=== PATIENT | male | born 1950 | race African-American/Black ===

== ENCOUNTER 2018-03-08 09:55 | Outpatient (CLI) | payer MEDICARE ==
[~2018-03-08] VITALS: Ht 165.1 cm; Wt 86.6 kg
[~2018-03-08 09:55] MED LIST: ASPI-630 PO; CARV3.122 PO; EZET10TA18 PO; FOLI1TAB16 PO; ISOS1TAB2 PO; LEVE500T6 PO
[2018-03-08] MEDS ORDERED: ONDA8TAB9 PO (10:21)
[2018-03-08 10:31] VITALS: BP 140/74
[2018-03-08] MEDS ORDERED: LIDOCAINE 1%/EPI 1:100,000 20 ML VIAL. ONE (10:58)
[2018-03-08] MEDS ORDERED: MIDAZOLAM HCL/PF 2 MG/2 ML VIAL. ONE (11:05)
[2018-03-08] MEDS ORDERED: fentaNYL PF VIAL 100 MCG/2 ML VIAL ONE (11:05)
[2018-03-08] MEDS ORDERED: MIDAZOLAM HCL/PF 2 MG/2 ML VIAL. IV ONE (11:15)
[2018-03-08] MEDS ORDERED: LIDOCAINE 1%/EPI 1:100,000 20 ML VIAL. IJ ONE (11:15)
[2018-03-08] MEDS ORDERED: fentaNYL PF VIAL 100 MCG/2 ML VIAL IV ONE (11:15)
[2018-03-08 11:46] VITALS: BP 110/68
--- NOTE | 2018-03-08 12:26 | RAD ---
Procedure: Ultrasound and fluoroscopically guided placement of right internal jugular power port.. 03/08/2018 12:22 PM Clinical Indication: Chemotherapy Access Sedation: Conscious sedation was administered for 30 minutes. The patient was monitored by a qualified independent observer throughout the time of sedation. Please refer to the medical record for exact doses of medications utilized to achieve moderate sedation. Fluoroscopy time: 0.6 minutes Dose area product: 2 Gycm2 Consent: The procedure was explained in its entirety to the patient or the patients designated sales representative church furniture by a member of the treatment team, including a discussion of the risks, benefits and commonly accepted alternatives to the procedure, as well as the expected consequences of no therapy whatsoever. Discussion of the risks included, but was not limited to, those that are most frequent and those that are rare but possibly severe or life-threatening, as well as the possibility of unforeseen complications. Technique and Findings: All elements of maximal sterile barrier technique including the use of a cap, mask, sterile gown, sterile gloves, large sterile sheet, appropriate hand hygiene, and 2% chlorhexidine for cutaneous antisepsis (or acceptable alternative antiseptic per current guidelines) were followed for this procedure. Following informed consent, and a timeout procedure, the patient was prepped and draped in the usual sterile fashion. Ultrasound interrogation of the right neck revealed patency and compressibility of the right internal jugular vein. A 21-gauge micropuncture was then used to gain access to this vein under ultrasound guidance. A hard copy ultrasound image was recorded. The needle was exchanged over a wire for a sheath. A 1 inch incision was made several centimeters inferior to the venotomy site. A catheter was tunneled from this site dermatotomy site in the neck. Catheter was advanced through peel-away sheath such that its tip was in the proximal right atrium with the patient supine. The catheter was trimmed to length and connected to the port reservoir. The port was found to flush and aspirate normally. The wound was closed in layers using 4-0 Vicryl suture. Sterile dressings were applied. Impression: Successful ultrasound and fluoroscopically guided placement of a right internal jugular PowerPort
[2018-03-08 13:00] VITALS: BP 124/82
== END 2018-03-08 13:13 | disposition home or self-care (01) ==
LOC: INTRAD 09:55
PROVIDERS: ATTEND Internal Medicine Hematology & Oncology
DX: Z45.2 Encounter for adjustment and management of vascular access device (principal); C18.7 Malignant neoplasm of sigmoid colon; I10 Essential (primary) hypertension; Z87.891 Personal history of nicotine dependence; Z79.82 Long term (current) use of aspirin; Z79.899 Other long term (current) drug therapy
CPT/HCPCS: 36561; 76937; 77001; 99152; 99153; C1788; C1892; J0690; J2250; J3010; J3490; C1751

== ENCOUNTER 2018-04-28 01:32 | Inpatient (IN) | payer MEDICARE ==
[~2018-04-28] VITALS: Ht 167.6 cm; Wt 91.2 kg
[2018-04-28] VITALS (35 sets, daily range): BP systolic 63–147; BP diastolic 49–90
[~2018-04-28 01:32] MED LIST changes: +CARV3.1210 PO; -CARV3.122 PO; +ONDA8TAB9 PO
--- NOTE | 2018-04-28 02:11 | RAD ---
AP chest. HISTORY: Short of breath, chest pain AP view was taken of the chest. There is a right Port-A-Cath which stops at the brachiocephalic vein. Heart is normal in size. There are diffuse hazy infiltrates from pneumonia or pulmonary edema or drug reaction or hypersensitivity reaction. The pattern is new compared to the CT from February 24. IMPRESSION: 1. Diffuse hazy bilateral infiltrates. Electronically signed by: Ritesh Corado MD (04/28/2018 2:06 AM) [facility]
[2018-04-28 02:25] LABS: BASO # 0.1 x10^3/uL (0.0-0.2); BASO % 1 % (0-3); EOS # 0.2 x10^3/uL (0.0-0.7); EOS % 2 % (0-3); HEMATOCRIT 41.7 % (39.0-53.0); HEMOGLOBIN 14.7 g/dL (13.0-17.5); LYMPH # 4.5 x10^3/uL (1.0-4.8); LYMPH % 49 % (24-48); MEAN CORPUSCULAR HEMOGLOBIN 32 pg (25-35); MEAN CORPUSCULAR HGB CONC 35 g/dL (31-37); MEAN CORPUSCULAR VOLUME 90 fL (79-100); MONO # 1.8 x10^3/uL (0.0-1.1); MONO % 20 % (0-9); NEUT # 2.6 x10^3uL (1.8-7.7); NEUT % 29 % (31-73); PLATELET COUNT 193 x10^3/uL (140-400); RED BLOOD COUNT 4.64 x10^6/uL (4.30-5.70); RED CELL DISTRIBUTION WIDTH 14.8 % (11.5-14.5); WHITE BLOOD COUNT 9.2 x10^3/uL (4.0-11.0)
[2018-04-28] MEDS ORDERED: IPRATRPIUM/ALBUTEROL 0.5/2.5MG 3 ML NEBU. NEB ONE ×2 (02:30→06:00)
[2018-04-28 02:39] LABS: CALCIUM 8.3 mg/dL (8.5-10.1); CREATININE 1.7 mg/dL (0.7-1.3); GFR 48.9; POTASSIUM 4.2 mmol/L (3.5-5.1)
[2018-04-28 02:53] LABS: ALBUMIN 3.7 g/dL (3.4-5.0); ALBUMIN/GLOBULIN RATIO 0.9 (1.0-1.7); TOTAL BILIRUBIN 0.6 mg/dL (0.2-1.0); TOTAL PROTEIN 7.6 g/dL (6.4-8.2)
[2018-04-28 03:09] LABS: BASE EXCESS COOX -6 mmol/L (-3-3); HCO3 COOX 25 mmol/L (21-28); METHEMOGLOBIN 0.5 % (0.0-1.9); OXYHEMOGLOBIN 91.6 %; PO2 COOX 82 mmHg (65-108); SAT O2 COOX 92 % (92-99)
[2018-04-28 03:14] LABS: INFLUENZA A PATIENT NEGATIVE (NEGATIVE); INFLUENZA B PATIENT NEGATIVE (NEGATIVE)
[2018-04-28] MEDS ORDERED: PIP/TAZO PER PHARMACY MC PRN (03:15)
[2018-04-28] MEDS: PIPERACILLIN/TAZOBACTAM 3.375 GM in IV NORMAL SALINE 50ML 50 ML IV SCH ×3 (03:27→18:30)
[2018-04-28] MEDS ORDERED: FUROSEMIDE 40 MG/4 ML VIAL. IVP ONE (03:30)
[2018-04-28 03:31] LABS: PCO2 COOX 74 mmHg (35-46)
[2018-04-28 04:18] LABS: BASE EXCESS ABG -7 mmol/L (-3-3); HCO3 ABG 24 mmol/L (21-28); PO2 ABG 97 mmHg (65-108); SAT O2 ABG 95 % (92-99)
[2018-04-28 04:21] LABS: PCO2 ABG 73 mmHg (35-46)
[2018-04-28 04:22] LABS: FIO2 ABG 60
[2018-04-28] MEDS ORDERED: PROPOFOL 50 ML IV ONE ×2 (04:24→05:15)
--- NOTE | 2018-04-28 04:28 | PHYS DOC ---
Past Medical History Past Medical History: CAD Additional Past Medical Histor: LIVER CA, COLON CA. Past Surgical History: No Surgical History Additional Past Surgical Histo: PORT PLACEMENT WITHIN 3 MONTHS. Alcohol Use: None Drug Use: Cocaine, Marijuana Social History Narrative: PT DENIES DRUG USE AT THIS TIME. Adult General Chief Complaint Chief Complaint: SHORTNESS OF BREATH HPI HPI Patient is a 68 year old male with history of colon cancer with metastatic disease to the liver currently on chemotherapy with last chemotherapy infusion 2 weeks ago who presents with acute onset shortness of breath nausea and sweats. Symptom onset was approximately 3 hours prior to ED arrival. Patient tachypnea, hypoxic with respiratory failure on EMS arrival. O2 saturations were initially noted to be in the mid 70s. Patient put on oxygen transferred to the ED. On arrival, patient tachypnea, mild to moderate respiratory distress with coarse breath sounds bilaterally. He is alert and oriented and is able to speak. Denies chest pain, fevers chills, vomiting. Denies increased leg pain or swelling. No history of DVT or PE. Takes daily aspirin but is not otherwise on anticoagulation therapy. No other acute symptoms or complaints.[] Review of Systems Review of Systems Review symptoms as per history of present illness. All other review symptoms are negative. All other systems were reviewed and found to be within normal limits, except as documented in this note. Allergies Allergies Allergies Coded Allergies Type Severity Reaction Last Updated Verified No Known Drug Allergies 03/08/18 No Physical Exam Physical Exam Constitutional: Diaphoretic, acute respiratory distress with respiratory failure. [] HENT: Normocephalic, atraumatic, bilateral external ears normal, oropharynx moist, nose normal. [] Eyes: PERRLA, EOMI, conjunctiva normal. [] Neck: Normal range of motion, no tenderness, supple, JVD. [] Cardiovascular:Heart rate regular rhythm, no murmur. [] Lungs & Thorax: Tachypnea, coarse diminished breath sounds with rales bilaterally.[] Abdomen: Bowel sounds normal, soft, no tenderness. [] Skin: Warm, dry, no erythema. [] Back: No tenderness. [] Extremities: bipedal edema. [] Neurologic: Somnolent, normal motor function, normal sensory function, no focal deficits noted. [] Current Patient Data Vital Signs Vital Signs Date Time Temp Pulse Resp B/P (MAP) Pulse Ox O2 Delivery O2 Flow Rate FiO2 04/28/18 01:33 97.6 116 32 217/123 (154) 74 Room Air 97.6 EKG EKG EKG: reviewed[] Radiology/Procedures Radiology/Procedures [CXR: Bilateral infiltrates.] Intubation procedure note: Indication: acute respiratory distress with respiratory failure with failed BiPAP trial Anesthesia used: Succinylcholine 100 mg, to prevent 100 mg Consent: Verbal consent was obtained prior to procedure Operating physician: Dr. Francisco Robin Respiratory therapist was by bedside with ventilator, bipap ongoing. The patient was connected to cardiovascular and pulse oximetry monitors and maintained on BiPAP just immediately prior to intubation. After appropriate level sedation was achieved, the patient had a 7.5 mm endotracheal tube cautiously advanced through his vocal cord which was visualized via video just go. This was successful on first attempt. Post chest CT chest pending for evaluation of endotracheal tube placement. Patient tolerated the procedure without complication. Course & Med Decision Making Course & Med Decision Making Pertinent Labs and Imaging studies reviewed. (See chart for details) [Respiratory distress with respiratory failure with pulmonary infiltrates on exam and evidence of acute congestive heart failure. Patient is high risk for PE given cancer. Given elevated creatinine, the patient will be empirically started on heparin. Patient oxygenation proved with BiPAP however, patient respirations remain shallow and his ABG is essentially unchanged despite increasing respiratory rate. Will intubate patient for stabilization. IV Lasix, antibiotics given. Hospitalist service to admit with cardiology and pulmonology consult.] Dragon Disclaimer Dragon Disclaimer This electronic medical record was generated, in whole or in part, using a voice recognition dictation system. Departure Departure Impression: Primary Impression: Acute respiratory failure with hypoxia and hypercapnia Additional Impressions: Acute congestive heart failure Elevated troponin Disposition: ADMITTED INPATIENT Admitting Physician: Other (Dr. Chanel) Condition: CRITICAL Referrals: NO PCP (PCP) Problem Qualifiers FRANCISCO ROBIN DO Apr 28, 2018 04:28
[2018-04-28] MEDS ORDERED: HEPARIN for IV BOLUS 10,000 UNIT/10 ML VIAL. IV PRN ×2 (04:30)
[2018-04-28] MEDS ORDERED: HEPARIN 25,000UTS/500ML PREMIX 500 ML IV PRN (04:30)
[2018-04-28] MEDS ORDERED: ANTI-COAG MONITOR BY PHARMACY. MC PRN (04:45)
[2018-04-28] MEDS ORDERED: HEPARIN for IV BOLUS 10,000 UNIT/10 ML VIAL. IV ONE (05:00)
[2018-04-28] MEDS ORDERED: SUCCINYLCHOLINE 200 MG/10 ML VIAL. ONE (05:11)
[2018-04-28] MEDS ORDERED: MIDAZOLAM HCL/PF 5 MG/5 ML VIAL. IV ONE ×2 (05:15→06:30)
[2018-04-28] MEDS ORDERED: PROPOFOL 10 MG/ML (20ML) VIAL. IV ONE (06:00)
[2018-04-28] MEDS ORDERED: SUCCINYLCHOLINE 200 MG/10 ML VIAL. IV ONE (06:00)
--- NOTE | 2018-04-28 06:09 | EKG ---
[facility] [address] [place] [address] Test Date: 2018-04-28 Test Time: 01:40:05 Pat Name: SANTIAGO CROUCH Department: Room: 111 1 Gender: M Isotope Technician: : 1950 Requested By: FAYE CLEMENTS Order Number: [id number] Reading MD: Jose Elise Measurements Intervals Half Way Rate: 113 P: 62 MI: 144 QRS: 24 QRSD: 100 T: 81 QT: 306 QTc: 425 Interpretive Statements SINUS TACHYCARDIA LEFT ATRIAL ABNORMALITY LOW LIMB LEAD VOLTAGE NON SPECIFIC T ABNORMALITY ABNORMAL ECG Electronically Signed On 05-04-2018 9:22:08 AIRLINE MANAGERIAL SUPERVISOR by Jose Elise
[2018-04-28] MEDS ORDERED: IV NORMAL SALINE 1000ML BAG 1,000 ML IV ONE (06:15)
[2018-04-28] MEDS ORDERED: PROPOFOL 100 ML IV ONE (06:28)
--- NOTE | 2018-04-28 06:29 | RAD ---
CT chest without contrast, CT abdomen without contrast. HISTORY: Short of air, abdominal pain, unresponsive CT scan of the chest CT scan the chest was done without contrast. There is an endotracheal tube stopping just above the dipika. There is an NG tube which extends into the stomach. There is a Port-A-Cath on the right. There are bilateral small to moderate pleural effusions. There are consolidating infiltrates in both lower lobes consistent with pneumonia. There is no mediastinal adenopathy. There is arthritis in the right shoulder. IMPRESSION: 1. Bilateral infiltrates consistent with pneumonia. 2. Small bilateral effusions. End impression CT abdomen and pelvis CT scan of the abdomen and pelvis was done following the CT chest without contrast. Liver is normal in appearance. There is no calcified gallstone. Spleen and adrenal glands are normal. Pancreas is unremarkable. There is no mass or hydronephrosis in the kidneys. There is an NG tube in the stomach. Stomach is still mildly distended. There is no bowel obstruction or ascites. There is no free fluid in the pelvis. There is a mass at the posterior pelvis on the left. Left pelvic mass measures 4.4 x 3.4 cm with mild increase compared to the prior study. There is no retroperitoneal adenopathy is a catheter in the bladder. IMPRESSION: 1. Mild increase left pelvic mass. 2. No bowel obstruction or other acute finding in the abdomen. PQRS Compliance Statement: One or more of the following individualized dose reduction techniques were utilized for this examination: 1. Automated exposure control 2. Adjustment of the mA and/or kV according to patient size 3. Use of iterative reconstruction technique Electronically signed by: Ritesh Corado MD (04/28/2018 6:25 AM) [facility]
[2018-04-28] MEDS ORDERED: PROPOFOL 100 ML IV PRN (06:45)
--- NOTE | 2018-04-28 07:00 | NUR ---
Dr Quan here, notified of transfer, BiPap, and updated on patient's condition to include sepsis. Addendum: 04/28/18 at 0819 by OBDULIO WILSON RN Disregard, noted on the wrong patient.
--- NOTE | 2018-04-28 07:41 | NUR ---
Patient arrived on unit at 0620 accompanied by ED RN and RT. Patient sedated on the ventilator, arousable to shaking at the time of admission. Vital signs stable at time of admission. Family is in the waiting room to answer admission questions. Around 7 am, patient became hypotensive. Next shift RN notified cardiology and received orders. Sepsis screen was negative.
[2018-04-28] MEDS ORDERED: NOREPINEPHRIN 8MG/250ML PREMIX 250 ML IV PRN (07:45)
[2018-04-28 07:58] LABS: % BASOS 1 % (0-3); % EOS 2 % (0-5); % LYMPHS 53 % (24-48); % MONOS 18 % (0-10); % SEGS 26 % (35-66); PLT ESTIMATE ADEQUATE (ADEQUATE); SMUDGE CELLS PRESENT
--- NOTE | 2018-04-28 09:12 | PDOC2 ---
RL SAEZ PROFESSOR OF LEGAL STUDIES 04/28/18 0911: CARDIAC CONSULT DATE OF CONSULT Date of Consult DATE: 04/28/18 TIME: 08:59 REASON FOR CONSULT Reason for Consult: CHF Respiratory failure REFERRING PHYSICIAN Referring Physician: Dr. Robin SOURCE Source: Chart review HISTORY OF PRESENT ILLNESS HISTORY OF PRESENT ILLNESS This is a 68 yo male, with a history of CAD, CHF, ICM with LVEF 20-25%, and colon CA with mets to the liver treated with chemotherapy, who presented with acute onset of shortness of breath, nausea, ad diaphoresis. Was tachypneic and hypoxic upon arrival. Failed BiPAP and was eventually intubated. Per [facility] records Admitted 06/2017. Positive for NICM. LVEF of 20% with noted concurrent usage of significant ETOH and cocaine use. LHC done due to NSTEMI and was noted with 30% to LAD lesion, LCx no occlusion, ramus occluded, RCA with 30-40% proximal lesion. Treated medically. Statin deferred at that time and was placed on zetia due to rhabdomyolysis. Lifevest was also deferred at that time due to polysubstance abuse. No follow up TTE was noted as pt failed outpatient follow up. PAST MEDICAL HISTORY Past Medical History Cardiovascular: CAD, HTN, Hyperlipidemia, CHF, NICM Pulmonary: No pertinent hx CENTRAL NERVOUS SYSTEM: Seizure GI: metastatic colon CA Heme/Onc: No pertinent hx Hepatobiliary: No pertinent hx Psych: No pertinent hx Musculoskeletal: Osteoarthritis Rheumatologic: No pertinent hx Infectious disease: No pertinent hx ENT: No pertinent hx Renal/: CKD Endocrine: No pertinent hx Dermatology: No pertinent hx PAST SURGICAL HISTORY Past Surgical History: Other (colon biopsy ) FAMILY HISTORY Family History: Hypertension SOCIAL HISTORY Social History Smoke: <1 pack per day (>40 yrs) ALCOHOL: heavy (hx; denies current use) Drugs: on Lives: with Family CURRENT MEDICATIONS CURRENT MEDICATIONS Current Medications Medications (Trade) Dose Ordered Sig/Karina Route PRN Reason Start Time Stop Time Status Last Admin Dose Admin Albuterol/ Ipratropium (Duoneb) 3 ml 1X ONCE NEB 04/28/18 02:30 04/28/18 02:31 DC 04/28/18 02:12 Furosemide (Lasix) 40 mg 1X ONCE IVP 04/28/18 03:30 04/28/18 03:31 DC 04/28/18 03:24 Piperacillin Sod/ Tazobactam Sod 3.375 gm/Sodium Chloride 50 ml @ 100 mls/hr Q6HRS IV 04/28/18 03:30 04/28/18 03:27 Heparin Sodium (Porcine) (Heparin Sodium) 7,250 unit 1X ONCE IV 04/28/18 05:00 04/28/18 05:01 DC 04/28/18 04:53 Heparin Sodium/ Dextrose 500 ml @ 0 mls/hr CONT PRN IV SEE I/O RECORD 04/28/18 04:30 04/28/18 05:04 Info (Anti-Coagulation Monitoring By Pharmacy) 1 each PRN DAILY PRN MC SEE COMMENTS 04/28/18 04:45 04/28/18 05:49 Levofloxacin/ Dextrose 100 ml @ 100 mls/hr 1X ONCE IV 04/28/18 05:00 04/28/18 05:59 DC 04/28/18 05:04 Midazolam HCl (Versed) 5 mg 1X ONCE IV 04/28/18 05:15 04/28/18 05:16 DC 04/28/18 04:57 Propofol 50 ml @ 1.361 mls/ hr 1X ONCE IV 04/28/18 05:15 04/29/18 17:59 04/28/18 04:46 Succinylcholine Chloride (Anectine) 100 mg 1X ONCE IV 04/28/18 06:00 04/28/18 06:01 DC 04/28/18 04:37 Propofol (Diprivan) 100 mg 1X ONCE IV 04/28/18 06:00 04/28/18 06:01 DC 04/28/18 04:36 Albuterol/ Ipratropium (Duoneb) 3 ml 1X ONCE NEB 04/28/18 06:00 04/28/18 06:01 DC 04/28/18 05:42 Midazolam HCl (Versed) 5 mg 1X ONCE IV 04/28/18 06:30 04/28/18 06:31 DC 04/28/18 05:57 Sodium Chloride 1,000 ml @ 1,000 mls/hr 1X ONCE IV 04/28/18 06:15 04/28/18 07:14 DC 04/28/18 05:57 ALLERGIES ALLERGIES: Coded Allergies: No Known Drug Allergies (Unverified , 03/08/18) ROS Review of System unobtainable PHYSICAL EXAM General: Other (intubated/sedated ) HEENT: Atraumatic, Mucous membr. moist/pink Lungs: Other (bibasilar crackles ) Heart: Regular rate, Other (distant heart tones) Abdomen: Soft Extremities: Normal pulses, Other (trace bilateral LE edema ) Skin: No significant lesion Neuro: Other (unable to assess) Psych/Mental Status: Other (sedated ) MUSCULOSKELETAL: No deformity VITALS VITALS Vital Signs Date Time Temp Pulse Resp B/P (MAP) Pulse Ox O2 Delivery O2 Flow Rate FiO2 04/28/18 07:15 76 24 63/49 (54) 100 Ventilator 04/28/18 06:30 97.8 97.8 04/28/18 03:20 2.0 LABS Lab: Laboratory Tests Test 04/28/18 02:10 04/28/18 02:20 04/28/18 03:05 04/28/18 04:14 White Blood Count 9.2 x10^3/uL (4.0-11.0) Red Blood Count 4.64 x10^6/uL (4.30-5.70) Hemoglobin 14.7 g/dL (13.0-17.5) Hematocrit 41.7 % (39.0-53.0) Mean Corpuscular Volume 90 fL (79-100) Mean Corpuscular Hemoglobin 32 pg (25-35) Mean Corpuscular Hemoglobin Concent 35 g/dL (31-37) Red Cell Distribution Width 14.8 % (11.5-14.5) Platelet Count 193 x10^3/uL (140-400) Neutrophils (%) (Auto) 29 % (31-73) Lymphocytes (%) (Auto) 49 % (24-48) Monocytes (%) (Auto) 20 % (0-9) Eosinophils (%) (Auto) 2 % (0-3) Basophils (%) (Auto) 1 % (0-3) Neutrophils # (Auto) 2.6 x10^3uL (1.8-7.7) Lymphocytes # (Auto) 4.5 x10^3/uL (1.0-4.8) Monocytes # (Auto) 1.8 x10^3/uL (0.0-1.1) Eosinophils # (Auto) 0.2 x10^3/uL (0.0-0.7) Basophils # (Auto) 0.1 x10^3/uL (0.0-0.2) Segmented Neutrophils % 26 % (35-66) Lymphocytes % 53 % (24-48) Monocytes % 18 % (0-10) Eosinophils % 2 % (0-5) Basophils % 1 % (0-3) Smudge Cells Present Platelet Estimate Adequate (ADEQUATE) Sodium Level 142 mmol/L (136-145) Potassium Level 4.2 mmol/L (3.5-5.1) Chloride Level 107 mmol/L (98-107) Carbon Dioxide Level 26 mmol/L (21-32) Anion Gap 9 (6-14) Blood Urea Nitrogen 14 mg/dL (8-26) Creatinine 1.7 mg/dL (0.7-1.3) Estimated GFR (Cockcroft-Gault) 48.9 BUN/Creatinine Ratio 8 (6-20) Glucose Level 207 mg/dL (70-99) Lactic Acid Level 1.7 mmol/L (0.4-2.0) Calcium Level 8.3 mg/dL (8.5-10.1) Total Bilirubin 0.6 mg/dL (0.2-1.0) Aspartate Amino Transf (AST/SGOT) 44 U/L (15-37) Alanine Aminotransferase (ALT/SGPT) 57 U/L (16-63) Alkaline Phosphatase 104 U/L (46-116) Troponin I Quantitative 0.150 ng/mL (0.000-0.055) TH-Zuf-W-Type Natriuretic Peptide 1640 pg/mL (0-124) Total Protein 7.6 g/dL (6.4-8.2) Albumin 3.7 g/dL (3.4-5.0) Albumin/Globulin Ratio 0.9 (1.0-1.7) Influenza Type A Antigen Negative (NEGATIVE) Influenza Type B Antigen Negative (NEGATIVE) O2 Saturation 92 % (92-99) 95 % (92-99) Arterial Blood pH 7.15 (7.35-7.45) 7.13 (7.35-7.45) Arterial Blood pCO2 at Patient Temp 74 mmHg (35-46) 73 mmHg (35-46) Arterial Blood pO2 at Patient Temp 82 mmHg (65-108) 97 mmHg (65-108) Arterial Blood HCO3 25 mmol/L (21-28) 24 mmol/L (21-28) Arterial Blood Base Excess -6 mmol/L (-3-3) -7 mmol/L (-3-3) Oxyhemoglobin 91.6 % Methemoglobin 0.5 % (0.0-1.9) Carbon Monoxide, Quantitative 0.2 % (0.0-1.9) FiO2 60 60 ECHOCARDIOGRAM ECHOCARDIOGRAM <Conclusion> The Left Ventricle is moderately dilated. The systolic function is severely impaired. The Ejection Fraction is 20-25%. There is global hypokinesis of the left ventricle. No significant valvular disease. DATE: 02/23/18 1009 ASSESSMENT/PLAN ASSESSMENT/PLAN 1. Acute respiratory failure secondary; multifactorial given PNA and AECOPD. s/ p intubation. Heparin gtt initiated due to concern for possible PE. Echo ordered to r/o RV dilation. 2. Mild acute on chronic systolic HF with NICM; LVEF 20-25% 3. NSTEMI; initial trop 0.15. Most probably type II demand ischemia 4. Accelerated hypertension, POA. Now with hypotension requiring pressor support. 5. CAD; non-obstructive. 06/2017 LHC 30% to LAD lesion, LCx no occlusion, ramus occluded, RCA with 30-40% proximal lesion. was treated medically at that time 6. Colon CA with liver metastasis 7. CKD 8. Hyperlipidemia; LDL 78 02/2018 9. Slight hematuria 10. Hx of seizures 11. Hx of substance abuse Recommendations Trend troponin Lung optimization/treatment of PNA as per pulmonary/IM May discontinue hep gtt from a CV standpoint Continue ASA. BB and ACEi when BP consistently adequate. Supportive care from a CV perspective DAVID MEDELLIN MD 04/28/18 7394: CARDIAC CONSULT ASSESSMENT/PLAN ASSESSMENT/PLAN Pt. seen and examined. Agree with above MUSICAL INSTRUMENT MAKER note. 68 y.o male with multiple comorbidities with known NICM Continue supportive care. No further CV testing. Will follow along. RL SAEZ APRN Apr 28, 2018 09:11 DAVID MEDELLIN MD Apr 28, 2018 18:54
[2018-04-28 09:50] LABS: BASE EXCESS ABG -1 mmol/L (-3-3); HCO3 ABG 23 mmol/L (21-28); PCO2 ABG 38 mmHg (35-46); PO2 ABG 186 mmHg (65-108); SAT O2 ABG 99 % (92-99)
[2018-04-28 09:52] LABS: FIO2 ABG 60
[2018-04-28] MEDS: MIDAZOLAM 100mg/100ml NS BAG 100 ML IV PRN ×2 (11:14→20:33)
[2018-04-28 11:32] LABS: BARBITURATES NEG (NEG); BENZODIAZEPINES POS (NEG); CANNABINOIDS NEG (NEG); COCAINE NEG (NEG); METHADONE NEG (NEG); OPIATES NEG (NEG); PHENCYCLIDINE NEG (NEG)
[2018-04-28 11:34] LABS: AMPHETAMINE/METHAMPHETAMINE NEG (NEG)
--- NOTE | 2018-04-28 11:35 | CONS ---
DATE OF CONSULTATION: 04/28/2018 PULMONARY CONSULTATION REFERRING PHYSICIAN: Jalen Chanel MD. REASON FOR CONSULTATION: Respiratory failure. HISTORY OF PRESENT ILLNESS: The patient is 68 years old who has history of colon cancer with metastasis to the liver. He has been on chemotherapy with last chemo infusion was about 2 weeks ago. He was brought into the hospital with acute onset of shortness of breath along with nausea and sweats. The patient was tachypneic on arrival and was hypoxic. His saturations were in the 70s on arrival. The patient failed BiPAP. He had coarse breath sounds. As a result, he was intubated. The patient's imaging studies were reviewed by me. He had a CT chest and abdomen. I have reviewed the CT chest. The patient has bibasilar consolidation, worse in the lower lobes. The finding in the left lower lobe also suggested some of the infiltrates could be nodular. He has a small right pleural effusion. His arterial blood gases were highly abnormal on arrival with initial pH of 7.15, pCO2 of 74 and a pO2 of 82 on 60% FiO2 and the blood gases did not improve. Finally, post-intubation early this morning, pH is 7.40, pCO2 of 38 and a pO2 of 186 on 60% FIO2. He is currently on AC rate of 24, 40% FiO2 and 5 of PEEP. The patient also became hypotensive after receiving Lasix. He is currently on low dose Levophed at 7 mcg. He did respond to some IV fluids. He also has history of nonischemic cardiomyopathy with an EF of 20%. PAST MEDICAL HISTORY: Significant for history of metastatic colon cancer with mets to the liver, history of nonischemic cardiomyopathy, history of congestive heart failure, EF of 20%, history of hypertension, hyperlipidemia, seizure, osteoarthritis. FAMILY HISTORY: Hypertension. SOCIAL HISTORY: Smoker for 40 years, less than 1 pack per day and history of heavy alcohol use. ALLERGIES: None. CURRENT MEDICATIONS: Reviewed as listed in the MRAD including antibiotic, Zosyn. REVIEW OF SYSTEMS: Unable to obtain as he is on the ventilator. PHYSICAL EXAMINATION: VITAL SIGNS: Reviewed. Blood pressure was 63 systolic, now in the one teens on 7 mcg of Levophed. Afebrile. Pulse ox is 100%. HEENT: Sclerae nonicteric. NECK: Supple. LUNGS: With diminished breath sounds posteriorly. No wheezing. CARDIOVASCULAR: Regular. ABDOMEN: Soft, nontender. EXTREMITIES: With trace pitting edema. LABORATORY DATA: Reviewed. ABGs as discussed in my history of present illness. BUN 14, creatinine 1.7. Troponin mildly elevated at 0.150 and has increased to 0.283. ProBNP 1640. Albumin is 3.7. White cell count 9.2, hemoglobin 14.7 and platelets are 193. IMPRESSION: 1. Acute hypercapnic and hypoxic respiratory failure secondary to multifactorial etiologies including extensive bibasilar pneumonia, acute exacerbation of chronic obstructive pulmonary disease. Clinically, less likely pulmonary embolism, but cannot be excluded. Imaging study could not be performed due to high creatinine. 2. Metastatic colon cancer with mets to the liver, undergoing chemotherapy. 3. Abnormal CT chest with extensive bibasilar consolidation. There is some nodularity seen in the left lower lobe consolidation and metastasis to the lung cannot be ruled out. 4. Hypotension, requiring vasopressor likely septic shock from pneumonia. 5. History of nonischemic cardiomyopathy with an ejection fraction of 20%, but less likely in congestive heart failure. RECOMMENDATIONS: 1. Continue with present assist control mode. 2. Gentle IV fluids until he weans off of the Levophed. 3. Obtain an echocardiogram to rule out any RV dysfunction. Also, we will obtain venous Dopplers of lower extremities. If these findings do not suggest pulmonary embolism, then heparin full dose can be discontinued. 4. Follow Cardiology recommendation. 5. Follow Oncology recommendation. 6. Once oxygenation improves further, we will assess the need for weaning trial. 7. DVT prophylaxis, already on heparin. 8. Stress ulcer prophylaxis. 9. Broad spectrum antibiotics to continue. 10. Discussed with RN and RT. We will follow along with you. Critical care time 39 minutes. BRANNON BERNAL MD DR: DAV/prince JOB#: [id number] / [id number]
--- NOTE | 2018-04-28 12:39 | CARD ---
MR#: [id number] Date of Study: 04/28/2018 Ordering Physician: BRANNON BERNAL, Referring Physician: Yecenia AVALOS: Rosana Marcelino RDCS APPROVED REPORT EXAM: Two-dimensional and M-mode echocardiogram with Doppler and color Doppler. Other Information Quality : Good INDICATION R/O Pulmonary Embolism, Check Right Ventricular Function 2D DIMENSIONS RVDd2.1 (2.9-3.5cm)Left Atrium(2D)3.3 (1.6-4.0cm) IVSd0.9 (0.7-1.1cm)Aortic Root(2D)2.7 (2.0-3.7cm) LVDd6.4 (3.9-5.9cm)LVOT Diameter2.3 (1.8-2.4cm) PWd0.9 (0.7-1.1cm)LVDs5.8 (2.5-4.0cm) FS (%) 8.8 %SV39.2 ml LVEF(%)18.9 (>50%) Aortic Valve AoV Peak Sudeep.110.1cm/sAoV VTI14.8cm AO Peak GR.4.9mmHgLVOT VTI 10.81cm AO Mean GR.3mmHgAVA (VTI)3.06cm2 Mitral Valve MV E Hlrmcnty19.4cm/sMV DECEL HPSS643al MV A Saqwrfzo75.8cm/sE/A Ratio1.0 TDI Lateral E' P. V4.12cm/sMedial E' P. V3.80cm/s E/Lateral E'17.1E/Medial E'18.5 LEFT VENTRICLE The Left Ventricle is mildly dilated. There is normal left ventricular wall thickness. Left ventricle ejection fraction is severely impaired. The Ejection Fraction is 15%. There is severe global hypokin esis of the left ventricle. RIGHT VENTRICLE The right ventricle cavity is small. The right ventricular systolic function is normal. ATRIA The left atrium size is normal. The right atrium is small in size. The interatrial septum is intact w ith no evidence for an atrial septal defect or patent foramen ovale as noted on 2-D or Doppler imagin g. AORTIC VALVE The aortic valve is calcified but opens well. Doppler and Color Flow revealed no significant aortic r egurgitation. There is no significant aortic valvular stenosis. MITRAL VALVE The mitral valve is calcified but opens well. There is no evidence of mitral valve prolapse. There is no mitral valve stenosis. Doppler and Color-flow revealed mild mitral regurgitation. TRICUSPID VALVE The tricuspid valve is normal in structure and function. Doppler and Color Flow revealed no tricuspid valve regurgitation noted. There is no tricuspid valve stenosis. PULMONIC VALVE The pulmonary valve is normal in structure and function. Doppler and Color Flow revealed no pulmonic valvular regurgitation. There is no pulmonic valvular stenosis. GREAT VESSELS The aortic root is normal in size. The ascending aorta is normal in size. The IVC is normal in size a nd collapses >50% with inspiration. PERICARDIAL EFFUSION There is no evidence of significant pericardial effusion. Critical Notification Critical Value: No <Conclusion> Left ventricle ejection fraction is severely impaired. The Ejection Fraction is 15%. Doppler and Color-flow revealed mild mitral regurgitation. There is no evidence of significant pericardial effusion. Signed by : Jose Elise, Electronically Approved : 04/28/2018 12:37:21
--- NOTE | 2018-04-28 13:54 | RAD ---
Bilateral lower extremity venous ultrasound, 04/28/2018: History: Bilateral leg edema Duplex evaluation of the deep veins in the lower extremities was performed including grayscale, color-flow and spectral Doppler analysis. The femoral and popliteal veins demonstrate normal compressibility and normal responses to distal augmentation maneuvers. Color imaging of those vessels shows no evidence of intraluminal clot. The visualized deep veins in both calves are patent. IMPRESSION: There is no sonographic evidence of deep vein thrombosis in either lower extremity. Electronically signed by: Efrain Payan MD (04/28/2018 1:50 PM) [facility]
[2018-04-28] MEDS ORDERED: IV NORMAL SALINE 500ML BAG 500 ML IV ONE (14:00)
[2018-04-28] MEDS: EZETIMIBE 10 MG TABLET. PO SCH ×2 (14:13→14:14)
[2018-04-28] MEDS: ASPIRIN CHEWABLE 81 MG TABLET. PO SCH (14:14)
[2018-04-28] MEDS: levETIRAcetam 500 MG TABLET PO SCH ×2 (14:14→20:57)
[2018-04-28] MEDS: FOLIC ACID 1 MG TABLET. PO SCH (14:14)
--- NOTE | 2018-04-28 14:36 | PDOC1 ---
History and Physical Date of Admission Date of Admission 04/28/2018 Identification/Chief Complaint Chief Complaint respiratory failure Problems: (1) Acute respiratory failure with hypoxia and hypercapnia Source Source: Chart review, Unable to obtain due to (Other) History of Present Illness History of Present Illness Mr. Benz is a 68-year-old gentleman who has a past medical history of metastatic colon cancer with metastases to the liver. The patient and is currently undergoing chemotherapy and his last treatment was approximately 2 weeks ago. The patient was brought yesterday and today merges apartment for acute onset of dyspnea at rest. The patient also had nausea associated with respiratory distress and diaphoresis. The patient unfortunately had to be intubated due to saturations on the 70s up on the right and well. He failed BiPAP therapy secondary to his work of breathing he was promptly intubated and transferred to the intensive care unit where he is currently. The patient was found to have bilateral lower lobe consolidations. He was admitted to the intensive care unit for further evaluation and treatment. At the time of my evaluation the patient is currently on pressor support and full ventilatory support, patient is sedated nevertheless he grimaces with noxious stimuli. Seems to be moving all extremities. Laboratory data and imaging studies have been reviewed Past Medical History Cardiovascular: CAD, HTN, Hyperlipidemia Pulmonary: No pertinent hx CENTRAL NERVOUS SYSTEM: Seizure GI: No pertinent hx Heme/Onc: No pertinent hx Hepatobiliary: No pertinent hx Psych: No pertinent hx Rheumatologic: No pertinent hx Infectious disease: No pertinent hx Renal/: No pertinent hx Endocrine: No pertinent hx Past Surgical History Past Surgical History: Other (colon biopsy ) Family History Family History: Hypertension Social History ALCOHOL: other Drugs: Cocaine, Marijuana Current Problem List Problem List Problems Medical Problems: (1) Acute congestive heart failure Status: Acute (2) Acute respiratory failure with hypoxia and hypercapnia Status: Acute (3) Elevated troponin Status: Acute Current Medications Current Medications Current Medications Medications (Trade) Dose Ordered Sig/Karina Start Time Stop Time Status Last Admin Dose Admin Albuterol/ Ipratropium (Duoneb) 3 ml 1X ONCE 04/28/18 06:00 04/28/18 06:01 DC 04/28/18 05:42 3 ML Aspirin (Children'S Aspirin) 81 mg DAILY 04/28/18 10:00 04/28/18 14:14 81 MG Carvedilol (Coreg) 3.125 mg BIDWMEALS 04/28/18 17:00 EZETIMIBE (Zetia) 10 mg DAILY 04/28/18 10:00 04/28/18 14:14 10 MG Famotidine (Pepcid) 20 mg QHS 04/28/18 21:00 Folic Acid (Folic Acid) 1 mg DAILY 04/28/18 10:00 04/28/18 14:14 1 MG Furosemide (Lasix) 40 mg 1X ONCE 04/28/18 03:30 04/28/18 03:31 DC 04/28/18 03:24 40 MG Heparin Sodium (Porcine) (Heparin Sodium) 1,350 unit PRN Q6HRS PRN 04/28/18 04:30 04/28/18 14:08 DC Heparin Sodium/ Dextrose 500 ml @ 0 mls/hr CONT PRN 04/28/18 04:30 04/28/18 14:08 DC 04/28/18 05:04 28.8 MLS/HR Info (Anti-Coagulation Monitoring By Pharmacy) 1 each PRN DAILY PRN 04/28/18 04:45 04/28/18 05:49 1 EACH Levetiracetam (Keppra) 500 mg BID 04/28/18 10:00 04/28/18 14:14 500 MG Levofloxacin/ Dextrose 100 ml @ 100 mls/hr 1X ONCE 04/28/18 05:00 04/28/18 05:59 DC 04/28/18 05:04 100 MLS/HR Midazolam HCl 100 ml @ 5 mls/hr CONT PRN 04/28/18 07:30 04/28/18 11:14 3 MLS/HR Midazolam HCl (Versed) 5 mg 1X ONCE 04/28/18 06:30 04/28/18 06:31 DC 04/28/18 05:57 5 MG Norepinephrine Bitartrate 250 ml @ 1.875 mls/ hr CONT PRN 04/28/18 07:45 04/28/18 11:15 13.125 MLS/HR Piperacillin Sod/ Tazobactam Sod (Zosyn Per Pharmacy) 1 each PRN DAILY PRN 04/28/18 03:15 Piperacillin Sod/ Tazobactam Sod 3.375 gm/Sodium Chloride 50 ml @ 100 mls/hr Q6HRS 04/28/18 03:30 04/28/18 13:45 100 MLS/HR Propofol 100 ml @ 0 mls/hr CONT PRN 04/28/18 06:45 Propofol (Diprivan) 100 mg 1X ONCE 04/28/18 06:00 04/28/18 06:01 DC 04/28/18 04:36 100 MG Sodium Chloride 1,000 ml @ 60 mls/hr [id number] 04/28/18 14:30 Succinylcholine Chloride (Anectine) 100 mg 1X ONCE 04/28/18 06:00 04/28/18 06:01 DC 04/28/18 04:37 100 MG Allergies Allergies Allergies Coded Allergies Type Severity Reaction Last Updated Verified No Known Drug Allergies 03/08/18 No ROS Review of System CONSTITUTIONAL: No fever or chills EYES: No recent changes SKIN: No rash or itching CARDIOVASCULAR: No chest pain, syncope, palpitations, or edema RESPIRATORY: No SOB or cough GASTROINTESTINAL: No nausea, vomiting or abdominal pain NEUROLOGICAL: No headaches or weakness ENDOCRINE: No cold or heat intolerance GENITOURINARY: No urgency or frequency of urination MUSCULOSKELETAL: No back pain or joint pain LYMPHATICS: No enlarged lymph nodes PSYCHIATRIC: No anxiety or depression Physical Exam Physical Exam GEN.: Intubated, sedated No apparent distress. Alert and oriented. HEENT: Head is normocephalic, atraumatic NECK: Supple. LUNGS: Coarse breath sounds HEART: RRR, S1, S2 present. Peripheral pulses intact ABDOMEN: Soft, nontender. Positive bowel sounds. EXTREMITIES: Without any cyanosis. NEUROLOGIC: Patient is sedated PSYCHIATRIC: Unable to assess SKIN: No ulcerations Vitals Vitals Vital Signs Date Time Temp Pulse Resp B/P (MAP) Pulse Ox O2 Delivery O2 Flow Rate FiO2 04/28/18 13:33 100 Ventilator 04/28/18 12:00 76 24 132/89 (103) 04/28/18 12:00 2.0 04/28/18 06:30 97.8 97.8 Labs Labs Laboratory Tests Test 04/28/18 02:10 04/28/18 02:20 04/28/18 03:05 04/28/18 04:14 White Blood Count 9.2 x10^3/uL (4.0-11.0) Red Blood Count 4.64 x10^6/uL (4.30-5.70) Hemoglobin 14.7 g/dL (13.0-17.5) Hematocrit 41.7 % (39.0-53.0) Mean Corpuscular Volume 90 fL (79-100) Mean Corpuscular Hemoglobin 32 pg (25-35) Mean Corpuscular Hemoglobin Concent 35 g/dL (31-37) Red Cell Distribution Width 14.8 % (11.5-14.5) Platelet Count 193 x10^3/uL (140-400) Neutrophils (%) (Auto) 29 % (31-73) Lymphocytes (%) (Auto) 49 % (24-48) Monocytes (%) (Auto) 20 % (0-9) Eosinophils (%) (Auto) 2 % (0-3) Basophils (%) (Auto) 1 % (0-3) Neutrophils # (Auto) 2.6 x10^3uL (1.8-7.7) Lymphocytes # (Auto) 4.5 x10^3/uL (1.0-4.8) Monocytes # (Auto) 1.8 x10^3/uL (0.0-1.1) Eosinophils # (Auto) 0.2 x10^3/uL (0.0-0.7) Basophils # (Auto) 0.1 x10^3/uL (0.0-0.2) Segmented Neutrophils % 26 % (35-66) Lymphocytes % 53 % (24-48) Monocytes % 18 % (0-10) Eosinophils % 2 % (0-5) Basophils % 1 % (0-3) Smudge Cells Present Platelet Estimate Adequate (ADEQUATE) Sodium Level 142 mmol/L (136-145) Potassium Level 4.2 mmol/L (3.5-5.1) Chloride Level 107 mmol/L (98-107) Carbon Dioxide Level 26 mmol/L (21-32) Anion Gap 9 (6-14) Blood Urea Nitrogen 14 mg/dL (8-26) Creatinine 1.7 mg/dL (0.7-1.3) Estimated GFR (Cockcroft-Gault) 48.9 BUN/Creatinine Ratio 8 (6-20) Glucose Level 207 mg/dL (70-99) Lactic Acid Level 1.7 mmol/L (0.4-2.0) Calcium Level 8.3 mg/dL (8.5-10.1) Total Bilirubin 0.6 mg/dL (0.2-1.0) Aspartate Amino Transf (AST/SGOT) 44 U/L (15-37) Alanine Aminotransferase (ALT/SGPT) 57 U/L (16-63) Alkaline Phosphatase 104 U/L (46-116) Troponin I Quantitative 0.150 ng/mL (0.000-0.055) FJ-Pge-D-Type Natriuretic Peptide 1640 pg/mL (0-124) Total Protein 7.6 g/dL (6.4-8.2) Albumin 3.7 g/dL (3.4-5.0) Albumin/Globulin Ratio 0.9 (1.0-1.7) Influenza Type A Antigen Negative (NEGATIVE) Influenza Type B Antigen Negative (NEGATIVE) O2 Saturation 92 % (92-99) 95 % (92-99) Arterial Blood pH 7.15 (7.35-7.45) 7.13 (7.35-7.45) Arterial Blood pCO2 at Patient Temp 74 mmHg (35-46) 73 mmHg (35-46) Arterial Blood pO2 at Patient Temp 82 mmHg (65-108) 97 mmHg (65-108) Arterial Blood HCO3 25 mmol/L (21-28) 24 mmol/L (21-28) Arterial Blood Base Excess -6 mmol/L (-3-3) -7 mmol/L (-3-3) Oxyhemoglobin 91.6 % Methemoglobin 0.5 % (0.0-1.9) Carbon Monoxide, Quantitative 0.2 % (0.0-1.9) FiO2 60 60 Test 04/28/18 09:08 04/28/18 09:30 04/28/18 11:00 O2 Saturation 99 % (92-99) Arterial Blood pH 7.40 (7.35-7.45) Arterial Blood pCO2 at Patient Temp 38 mmHg (35-46) Arterial Blood pO2 at Patient Temp 186 mmHg (65-108) Arterial Blood HCO3 23 mmol/L (21-28) Arterial Blood Base Excess -1 mmol/L (-3-3) FiO2 60 Troponin I Quantitative 0.283 ng/mL (0.000-0.055) Urine Opiates Screen Neg (NEG) Urine Methadone Screen Neg (NEG) Urine Barbiturates Neg (NEG) Urine Phencyclidine Screen Neg (NEG) Urine Amphetamine/Methamphetamine Neg (NEG) Urine Benzodiazepines Screen Pos (NEG) Urine Cocaine Screen Neg (NEG) Urine Cannabinoids Screen Neg (NEG) Urine Ethyl Alcohol Neg (NEG) Heparin Anti-Xa Act, Unfractionated > 1.10 IU/mL (0.30-0.70) Laboratory Tests Test 04/28/18 02:10 04/28/18 02:20 04/28/18 03:05 04/28/18 04:14 White Blood Count 9.2 x10^3/uL (4.0-11.0) Red Blood Count 4.64 x10^6/uL (4.30-5.70) Hemoglobin 14.7 g/dL (13.0-17.5) Hematocrit 41.7 % (39.0-53.0) Mean Corpuscular Volume 90 fL (79-100) Mean Corpuscular Hemoglobin 32 pg (25-35) Mean Corpuscular Hemoglobin Concent 35 g/dL (31-37) Red Cell Distribution Width 14.8 % (11.5-14.5) Platelet Count 193 x10^3/uL (140-400) Neutrophils (%) (Auto) 29 % (31-73) Lymphocytes (%) (Auto) 49 % (24-48) Monocytes (%) (Auto) 20 % (0-9) Eosinophils (%) (Auto) 2 % (0-3) Basophils (%) (Auto) 1 % (0-3) Neutrophils # (Auto) 2.6 x10^3uL (1.8-7.7) Lymphocytes # (Auto) 4.5 x10^3/uL (1.0-4.8) Monocytes # (Auto) 1.8 x10^3/uL (0.0-1.1) Eosinophils # (Auto) 0.2 x10^3/uL (0.0-0.7) Basophils # (Auto) 0.1 x10^3/uL (0.0-0.2) Segmented Neutrophils % 26 % (35-66) Lymphocytes % 53 % (24-48) Monocytes % 18 % (0-10) Eosinophils % 2 % (0-5) Basophils % 1 % (0-3) Smudge Cells Present Platelet Estimate Adequate (ADEQUATE) Sodium Level 142 mmol/L (136-145) Potassium Level 4.2 mmol/L (3.5-5.1) Chloride Level 107 mmol/L (98-107) Carbon Dioxide Level 26 mmol/L (21-32) Anion Gap 9 (6-14) Blood Urea Nitrogen 14 mg/dL (8-26) Creatinine 1.7 mg/dL (0.7-1.3) Estimated GFR (Cockcroft-Gault) 48.9 BUN/Creatinine Ratio 8 (6-20) Glucose Level 207 mg/dL (70-99) Lactic Acid Level 1.7 mmol/L (0.4-2.0) Calcium Level 8.3 mg/dL (8.5-10.1) Total Bilirubin 0.6 mg/dL (0.2-1.0) Aspartate Amino Transf (AST/SGOT) 44 U/L (15-37) Alanine Aminotransferase (ALT/SGPT) 57 U/L (16-63) Alkaline Phosphatase 104 U/L (46-116) Troponin I Quantitative 0.150 ng/mL (0.000-0.055) IM-Qds-H-Type Natriuretic Peptide 1640 pg/mL (0-124) Total Protein 7.6 g/dL (6.4-8.2) Albumin 3.7 g/dL (3.4-5.0) Albumin/Globulin Ratio 0.9 (1.0-1.7) Influenza Type A Antigen Negative (NEGATIVE) Influenza Type B Antigen Negative (NEGATIVE) O2 Saturation 92 % (92-99) 95 % (92-99) Arterial Blood pH 7.15 (7.35-7.45) 7.13 (7.35-7.45) Arterial Blood pCO2 at Patient Temp 74 mmHg (35-46) 73 mmHg (35-46) Arterial Blood pO2 at Patient Temp 82 mmHg (65-108) 97 mmHg (65-108) Arterial Blood HCO3 25 mmol/L (21-28) 24 mmol/L (21-28) Arterial Blood Base Excess -6 mmol/L (-3-3) -7 mmol/L (-3-3) Oxyhemoglobin 91.6 % Methemoglobin 0.5 % (0.0-1.9) Carbon Monoxide, Quantitative 0.2 % (0.0-1.9) FiO2 60 60 Test 04/28/18 09:08 1/9/19 09:30 04/28/18 11:00 O2 Saturation 99 % (92-99) Arterial Blood pH 7.40 (7.35-7.45) Arterial Blood pCO2 at Patient Temp 38 mmHg (35-46) Arterial Blood pO2 at Patient Temp 186 mmHg (65-108) Arterial Blood HCO3 23 mmol/L (21-28) Arterial Blood Base Excess -1 mmol/L (-3-3) FiO2 60 Troponin I Quantitative 0.283 ng/mL (0.000-0.055) Urine Opiates Screen Neg (NEG) Urine Methadone Screen Neg (NEG) Urine Barbiturates Neg (NEG) Urine Phencyclidine Screen Neg (NEG) Urine Amphetamine/Methamphetamine Neg (NEG) Urine Benzodiazepines Screen Pos (NEG) Urine Cocaine Screen Neg (NEG) Urine Cannabinoids Screen Neg (NEG) Urine Ethyl Alcohol Neg (NEG) Heparin Anti-Xa Act, Unfractionated > 1.10 IU/mL (0.30-0.70) VTE Prophylaxis Ordered VTE Prophylaxis Devices: Yes VTE Pharmacological Prophylaxi: Yes Assessment/Plan Assessment/Plan 1. Acute respiratory failure secondary; multifactorial given PNA and AECOPD. s/ p intubation. Heparin gtt initiated due to concern for possible PE. Echo ordered to r/o RV dilation. 2. Mild acute on chronic systolic HF with NICM; LVEF 20-25% 3. NSTEMI; initial trop 0.15. Most probably type II demand ischemia 4. Accelerated hypertension, POA. Now with hypotension requiring pressor support. 5. CAD; non-obstructive. 06/2017 LHC 30% to LAD lesion, LCx no occlusion, ramus occluded, RCA with 30-40% proximal lesion. was treated medically at that time 6. Colon CA with liver metastasis 7. CKD 8. Hyperlipidemia; LDL 78 02/2018 9. Slight hematuria 10. Hx of seizures 11. Hx of substance abuse Plan: Continue with supportive measures. Follow recommendations from critical animal care taker Follow recommendations from cardiology Monitor hemodynamics Poor prognosis given his multiple comorbidities and underlying malignancy with liver metastases ARLYN MATTSON MD Apr 28, 2018 14:36
--- NOTE | 2018-04-28 15:47 | NUR ---
SS following for discharge planning. SS reviewed pt's chart. Pt is from home and currently on the ventilator and IV antibiotics. SS will continue to follow for pending discharge needs.
--- NOTE | 2018-04-28 16:00 | NUR ---
Hep gtt stopped per Dr berger after echo and LE dop tests resulted. Urine went from pink to clear. Pt gas remained sedated and VS have improved thru day with gentle hydration. at bedside. Versed for sedation, Pt does randomly lighten and RUTH. TF started per OG. IV intact all day. Levo thru Port with bld return
[2018-04-28] MEDS: CARVEDILOL 3.125 MG TABLET. PO SCH (17:00)
[2018-04-28] MEDS: IV NORMAL SALINE 1000ML BAG 1,000 ML IV SCH (17:47)
[2018-04-28] MEDS: FAMOTIDINE 20 MG TABLET. PO SCH (20:57)
[2018-04-29] VITALS (27 sets, daily range): BP systolic 12–140; BP diastolic 65–97
[2018-04-29] MEDS: PIPERACILLIN/TAZOBACTAM 3.375 GM in IV NORMAL SALINE 50ML 50 ML IV SCH ×4 (00:19→17:36)
[2018-04-29] MEDS: IV NORMAL SALINE 1000ML BAG 1,000 ML IV SCH ×2 (04:13→23:50)
[2018-04-29 04:40] LABS: HEMATOCRIT 38.1 % (39.0-53.0); HEMOGLOBIN 13.1 g/dL (13.0-17.5); RED BLOOD COUNT 4.25 x10^6/uL (4.30-5.70); RED CELL DISTRIBUTION WIDTH 14.6 % (11.5-14.5); WHITE BLOOD COUNT 5.5 x10^3/uL (4.0-11.0)
[2018-04-29 06:42] LABS: CALCIUM 8.1 mg/dL (8.5-10.1); GFR 40.5; POTASSIUM 4.1 mmol/L (3.5-5.1)
[2018-04-29 08:15] LABS: BASE EXCESS ABG -1 mmol/L (-3-3); HCO3 ABG 22 mmol/L (21-28); PCO2 ABG 31 mmHg (35-46); PO2 ABG 144 mmHg (65-108); SAT O2 ABG 98 % (92-99)
[2018-04-29 08:21] LABS: FIO2 ABG 40%
--- NOTE | 2018-04-29 08:31 | RAD ---
PORTABLE CHEST 1V History: Intubation Comparison: April 28, 2018 Findings: AP view of the chest is submitted. There is again enteric catheter coursing into the stomach. There is endotracheal tube with the tip about 3 cm from dipika. There is again right port catheter although the tip is now directed superiorly in the right neck rather than directed inferiorly. Heart size is stable. There is improved aeration of the bilateral hemithoraces, mild residual interstitial opacity. There is likely atelectasis or mild infiltrate medial left lung base. Impression: 1. There is improved aeration bilaterally with mild residual interstitial opacity and likely atelectasis or infiltrate medial left lung base. 2. Tip of right port catheter is now directed superiorly in the right neck rather than inferiorly, not fully evaluated. FOR INTERNAL CODING PURPOSES Critical result: Findings discussed with patient's nurse Elliot at 04/29/2018 8:27 AM. RESULT CODE: (C) Electronically signed by: Liborio Shabazz MD (04/29/2018 8:27 AM) [id number]
--- NOTE | 2018-04-29 09:00 | NUR ---
Versed turned off at [address] Agarwal. Will do cpap trial when patient is alert.
[2018-04-29] MEDS: FOLIC ACID 1 MG TABLET. PO SCH (09:05)
[2018-04-29] MEDS: ASPIRIN CHEWABLE 81 MG TABLET. PO SCH (09:05)
[2018-04-29] MEDS: levETIRAcetam 500 MG TABLET PO SCH (09:05)
[2018-04-29] MEDS: CARVEDILOL 3.125 MG TABLET. PO SCH ×2 (09:07→17:00)
--- NOTE | 2018-04-29 09:47 | PDOC2 ---
CONSULT Date of Consult Date of Consult DATE: 04/29/18 TIME: 09:33 Reason for consultation: Pneumonia with colon cancer on chemotherapy Consult: Hematology oncology, Dr. Giacomo Paulino History of present illness: He is a 68-year-old male, had acute onset of severe shortness of breath, did not tolerate BiPAP in the ER, improved after intubation , noted to have bilateral lower lobe consolidation, currently intubated, sedation was just withdrawn this morning, he seems to be waking up a bit, and hopefully will be able to be weaned from the ventilator soon, is on antibiotics and required pressors for sepsis, sx worsened due to chemotherapy recently w/ inc in infectious risk, also w/ recent c diff. He has multiple comorbidities and was not a good surgical candidate and so thus we began neoadjuvant chemotherapy with some liver metastases that are potentially resectable. Past medical history: C. difficile requiring vancomycin taper recently prior to starting chemo Coronary artery disease Chronic renal insufficiency CHF with low ejection fraction Hypertension Hyperlipidemia Osteoarthritis History of tobacco drugs alcohol and polysubstance abuse Seizure related to drug withdrawal in the past Metastatic colon cancer, 2 colon Lesions, 2 liver metastases Past surgical history: Colonoscopy Liver biopsy Allergies: No known drug allergies Medications: See attached list Social history: , history of polysubstance abuse Family history: Ovarian cancer, hypertension Review of systems: Currently unobtainable as he is ventilated with sedation Physical exam: Vitals reviewed Gen.: Well-nourished and well-developed 60s AA man, ventilated HEENT: mucous membranes moist, head normocephalic atraumatic Neck: Supple, no lymphadenopathy Lymph nodes: No palpable lymphadenopathy neck or axilla Lungs: Breathing comfortably ETT, w/o inc WOB Heart: Regular rate and rhythm Abdomen: Soft, nontender Extremities: No cyanosis or edema Skin: No obvious rashes or skin breakdown Neuro: eyes closed, moving a bit head and UE Lab reviewed: White count 5.5, hemoglobin 13.1, platelets 179 Influenza negative UDS positive for benzos Creatinine 2.0 Troponin increasing at 0.69 Anti-10 A greater than 1.1 Rads reviewed: CT chest abdomen and pelvis with bilateral infiltrates with small bilateral effusion, mild increase in left pelvic mass Bilateral lower extremity ultrasounds negative for clots Chest x-ray showed left lung infiltrate and port heading superiorly Case discussed with: Patient, his nurse, records reviewed [facility], including labs and radiology and prior notes, please see note for summary details. Assessment and Plan: He is a 67-year-old man who recently started chemotherapy neoadjuvant for metastatic colon cancer with anticipation of colon surgery and surgical excision of 2 liver metastases, chemotherapy initially delayed due to prolonged C. difficile requiring vancomycin taper, and now he has pneumonia and acute respiratory failure, he's not done well with chemotherapy, has multiple comorbidities including heart failure, and history of drug abuse, we were hoping he would do okay on chemotherapy but we will have to continue to reevaluate goals of care after improvement from current episode. NSTEMI: Cardiology is involved, was on pressors Respiratory failure: Ventilated, pulmonary is involved, hopefully can be weaned soon Pneumonia: On antibiotics Colon cancer: Chemotherapy on hold for current admission Loose stools: Would consider checking C. difficile Disposition: After continued clinical improvement, he will follow-up with us prior to considering redosing of further chemotherapy Port: will need revised prior to using again Thank you kindly for this consultation, and please don't hesitate to call with any further questions. Past Medical History Cardiovascular: CAD, HTN, Hyperlipidemia Pulmonary: No pertinent hx CENTRAL NERVOUS SYSTEM: Seizure GI: No pertinent hx Heme/Onc: No pertinent hx Hepatobiliary: No pertinent hx Psych: No pertinent hx Musculoskeletal: Osteoarthritis Rheumatologic: No pertinent hx Infectious disease: No pertinent hx Renal/: No pertinent hx Endocrine: No pertinent hx Past Surgical History Past Surgical History: Other (colon biopsy ) Family History Family History: Hypertension Social History ALCOHOL: other Drugs: Cocaine, Marijuana Lives: with Family Current Problem List Problem List Problems Medical Problems: (1) Acute congestive heart failure Status: Acute (2) Acute respiratory failure with hypoxia and hypercapnia Status: Acute (3) Elevated troponin Status: Acute Current Medications Current Medications Current Medications Albuterol/ Ipratropium (Duoneb) 3 ml 1X ONCE NEB Last administered on at 02:12; Start 04/28/18 at 02:30; Stop 04/28/18 at 02:31; Status DC Furosemide (Lasix) 40 mg 1X ONCE IVP Last administered on 04/28/18at 03:24; Start 04/28/18 at 03:30; Stop 04/28/18 at 03:31; Status DC Piperacillin Sod/ Tazobactam Sod (Zosyn Per Pharmacy) 1 each PRN DAILY PRN MC SEE COMMENTS; Start 04/28/18 at 03:15 Piperacillin Sod/ Tazobactam Sod 3.375 gm/Sodium Chloride 50 ml @ 100 mls/hr Q6HRS IV Last administered on 04/29/18at 06:24; Start 04/28/18 at 03:30 Propofol 50 ml @ As Directed STK-MED ONCE IV ; Start 04/28/18 at 04:24; Stop 04/28 at 04:26; Status DC Heparin Sodium (Porcine) (Heparin Sodium) 7,250 unit 1X ONCE IV Last administered on 04/28/18at 04:53; Start 04/28/18 at 05:00; Stop 04/28/18 at 14:08; Status DC Heparin Sodium/ Dextrose 500 ml @ 0 mls/hr CONT PRN IV SEE I/O RECORD Last administered on 04/28/18at 05:04; Start 04/28/18 at 04:30; Stop 04/28/18 at 14:08; Status DC Heparin Sodium (Porcine) (Heparin Sodium) 2,700 unit PRN Q6HRS PRN IV FOR UFH LEVEL LESS THAN 0.2; Start 04/28/18 at 04:30; Stop 04/28/18 at 14:08; Status DC Heparin Sodium (Porcine) (Heparin Sodium) 1,350 unit PRN Q6HRS PRN IV FOR UFH LEVEL 0.2 - 0.29; Start 04/28/18 at 04:30; Stop 04/28/18 at 14:08; Status DC Info (Anti-Coagulation Monitoring By Pharmacy) 1 each PRN DAILY PRN MC SEE COMMENTS Last administered on 04/28/18at 05:49; Start 04/28/18 at 04:45 Levofloxacin/ Dextrose 100 ml @ 100 mls/hr 1X ONCE IV Last administered on 04/28/18at 05:04; Start 04/28/18 at 05:00; Stop 04/28/18 at 05:59; Status DC Midazolam HCl (Versed) 5 mg 1X ONCE IV Last administered on 04/28/18at 04:57; Start 04/28/18 at 05:15; Stop 04/28/18 at 05:16; Status DC Propofol 50 ml @ 1.361 mls/ hr 1X ONCE IV Last administered on 04/28/18at 04:46 ; Start 04/28/18 at 05:15; Stop 04/29/18 at 17:59 Succinylcholine Chloride (Anectine) 200 mg STK-MED ONCE .ROUTE ; Start 04/28/18 at 05:11; Stop 04/28/18 at 05:13; Status DC Succinylcholine Chloride (Anectine) 100 mg 1X ONCE IV Last administered on 04/28at 04:37; Start 04/28/18 at 06:00; Stop 04/28/18 at 06:01; Status DC Propofol (Diprivan) 100 mg 1X ONCE IV Last administered on 04/28/18at 04:36; Start 04/28/18 at 06:00; Stop 04/28/18 at 06:01; Status DC Albuterol/ Ipratropium (Duoneb) 3 ml 1X ONCE NEB Last administered on at 05:42; Start 04/28/18 at 06:00; Stop 04/28/18 at 06:01; Status DC Midazolam HCl (Versed) 5 mg 1X ONCE IV Last administered on 04/28/18at 05:57; Start 04/28/18 at 06:30; Stop 04/28/18 at 06:31; Status DC Sodium Chloride 1,000 ml @ 1,000 mls/hr 1X ONCE IV Last administered on at 05:57; Start 04/28/18 at 06:15; Stop 04/28/18 at 07:14; Status DC Propofol 100 ml @ As Directed STK-MED ONCE IV ; Start 04/28/18 at 06:28; Stop at 06:30; Status DC Propofol 100 ml @ 0 mls/hr CONT PRN IV SEE PROTOCOL; Start 04/28/18 at 06:45 Midazolam HCl 100 ml @ 5 mls/hr CONT PRN IV SEE I/O RECORD Last administered on 04/28/18at 20:33; Start 04/28/18 at 07:30 Norepinephrine Bitartrate 250 ml @ 1.875 mls/ hr CONT PRN IV SEE I/O RECORD Last administered on 04/28/18at 11:15; Start 04/28/18 at 07:45 Aspirin (Children'S Aspirin) 81 mg DAILY PO Last administered on 04/29/18at 09: 05; Start 04/28/18 at 10:00 Carvedilol (Coreg) 3.125 mg BIDWMEALS PO Last administered on 04/29/18at 09:07; Start 04/28/18 at 17:00 EZETIMIBE (Zetia) 10 mg DAILY PO Last administered on 04/28/18at 14:14; Start 04/28/18 at 10:00 Folic Acid (Folic Acid) 1 mg DAILY PO Last administered on 04/29/18at 09:05; Start 04/28/18 at 10:00 Levetiracetam (Keppra) 500 mg BID PO Last administered on 04/29/18at 09:05; Start 04/28/18 at 10:00 Famotidine (Pepcid) 20 mg QHS PO Last administered on 04/28/18at 20:57; Start 04/28/18 at 21:00 Sodium Chloride 500 ml @ 500 mls/hr 1X ONCE IV Last administered on 04/28/18at 13:56; Start 04/28/18 at 14:00; Stop 04/28/18 at 14:59; Status DC Sodium Chloride 1,000 ml @ 60 mls/hr [id number] IV Last administered on at 04:13; Start 04/28/18 at 14:30 Active Scripts Active Reported Zofran (Ondansetron Hcl) 8 Mg Tablet 1 Tab PO Q8HRS Zetia (Ezetimibe) 10 Mg Tablet 1 Tab PO DAILY Folic Acid 1 Mg Tablet 1 Tab PO DAILY Aspirin 81 Mg Tab.chew 1 Tab PO DAILY Carvedilol (Carvedilol) 3.125 Mg Tablet 1 Tab PO BID Levetiracetam 500 Mg Tablet 1 Tab PO BID Allergies Allergies: Coded Allergies: No Known Drug Allergies (Unverified , 03/08/18) Vitals VITALS Vital Signs Date Time Temp Pulse Resp B/P (MAP) Pulse Ox O2 Delivery O2 Flow Rate FiO2 04/29/18 09:07 96 136/88 04/29/18 09:03 100 Ventilator 04/29/18 07:00 24 04/29/18 04:00 99.2 99.2 04/28/18 16:00 2.0 Labs Labs Laboratory Tests Test 04/28/18 02:10 04/28/18 02:20 04/28/18 03:05 04/28/18 04:14 White Blood Count 9.2 x10^3/uL (4.0-11.0) Red Blood Count 4.64 x10^6/uL (4.30-5.70) Hemoglobin 14.7 g/dL (13.0-17.5) Hematocrit 41.7 % (39.0-53.0) Mean Corpuscular Volume 90 fL (79-100) Mean Corpuscular Hemoglobin 32 pg (25-35) Mean Corpuscular Hemoglobin Concent 35 g/dL (31-37) Red Cell Distribution Width 14.8 % (11.5-14.5) Platelet Count 193 x10^3/uL (140-400) Neutrophils (%) (Auto) 29 % (31-73) Lymphocytes (%) (Auto) 49 % (24-48) Monocytes (%) (Auto) 20 % (0-9) Eosinophils (%) (Auto) 2 % (0-3) Basophils (%) (Auto) 1 % (0-3) Neutrophils # (Auto) 2.6 x10^3uL (1.8-7.7) Lymphocytes # (Auto) 4.5 x10^3/uL (1.0-4.8) Monocytes # (Auto) 1.8 x10^3/uL (0.0-1.1) Eosinophils # (Auto) 0.2 x10^3/uL (0.0-0.7) Basophils # (Auto) 0.1 x10^3/uL (0.0-0.2) Segmented Neutrophils % 26 % (35-66) Lymphocytes % 53 % (24-48) Monocytes % 18 % (0-10) Eosinophils % 2 % (0-5) Basophils % 1 % (0-3) Smudge Cells Present Platelet Estimate Adequate (ADEQUATE) Sodium Level 142 mmol/L (136-145) Potassium Level 4.2 mmol/L (3.5-5.1) Chloride Level 107 mmol/L (98-107) Carbon Dioxide Level 26 mmol/L (21-32) Anion Gap 9 (6-14) Blood Urea Nitrogen 14 mg/dL (8-26) Creatinine 1.7 mg/dL (0.7-1.3) Estimated GFR (Cockcroft-Gault) 48.9 BUN/Creatinine Ratio 8 (6-20) Glucose Level 207 mg/dL (70-99) Lactic Acid Level 1.7 mmol/L (0.4-2.0) Calcium Level 8.3 mg/dL (8.5-10.1) Total Bilirubin 0.6 mg/dL (0.2-1.0) Aspartate Amino Transf (AST/SGOT) 44 U/L (15-37) Alanine Aminotransferase (ALT/SGPT) 57 U/L (16-63) Alkaline Phosphatase 104 U/L (46-116) Troponin I Quantitative 0.150 ng/mL (0.000-0.055) XP-Cza-[id number]-Type Natriuretic Peptide 1640 pg/mL (0-124) Total Protein 7.6 g/dL (6.4-8.2) Albumin 3.7 g/dL (3.4-5.0) Albumin/Globulin Ratio 0.9 (1.0-1.7) Influenza Type A Antigen Negative (NEGATIVE) Influenza Type B Antigen Negative (NEGATIVE) O2 Saturation 92 % (92-99) 95 % (92-99) Arterial Blood pH 7.15 (7.35-7.45) 7.13 (7.35-7.45) Arterial Blood pCO2 at Patient Temp 74 mmHg (35-46) 73 mmHg (35-46) Arterial Blood pO2 at Patient Temp 82 mmHg (65-108) 97 mmHg (65-108) Arterial Blood HCO3 25 mmol/L (21-28) 24 mmol/L (21-28) Arterial Blood Base Excess -6 mmol/L (-3-3) -7 mmol/L (-3-3) Oxyhemoglobin 91.6 % Methemoglobin 0.5 % (0.0-1.9) Carbon Monoxide, Quantitative 0.2 % (0.0-1.9) FiO2 60 60 Test 04/28/18 07:00 04/28/18 09:08 04/28/18 09:30 04/28/18 11:00 Nasal Screen MRSA (PCR) Negative (Negative) O2 Saturation 99 % (92-99) Arterial Blood pH 7.40 (7.35-7.45) Arterial Blood pCO2 at Patient Temp 38 mmHg (35-46) Arterial Blood pO2 at Patient Temp 186 mmHg (65-108) Arterial Blood HCO3 23 mmol/L (21-28) Arterial Blood Base Excess -1 mmol/L (-3-3) FiO2 60 Troponin I Quantitative 0.283 ng/mL (0.000-0.055) Urine Opiates Screen Neg (NEG) Urine Methadone Screen Neg (NEG) Urine Barbiturates Neg (NEG) Urine Phencyclidine Screen Neg (NEG) Urine Amphetamine/Methamphetamine Neg (NEG) Urine Benzodiazepines Screen Pos (NEG) Urine Cocaine Screen Neg (NEG) Urine Cannabinoids Screen Neg (NEG) Urine Ethyl Alcohol Neg (NEG) Heparin Anti-Xa Act, Unfractionated > 1.10 IU/mL (0.30-0.70) Test 04/29/18 00:15 04/29/18 04:15 04/29/18 06:09 04/29/18 08:10 Glucose (Fingerstick) 121 mg/dL (70-99) 114 mg/dL (70-99) White Blood Count 5.5 x10^3/uL (4.0-11.0) Red Blood Count 4.25 x10^6/uL (4.30-5.70) Hemoglobin 13.1 g/dL (13.0-17.5) Hematocrit 38.1 % (39.0-53.0) Mean Corpuscular Volume 90 fL (79-100) Mean Corpuscular Hemoglobin 31 pg (25-35) Mean Corpuscular Hemoglobin Concent 34 g/dL (31-37) Red Cell Distribution Width 14.6 % (11.5-14.5) Platelet Count 179 x10^3/uL (140-400) Sodium Level 142 mmol/L (136-145) Potassium Level 4.1 mmol/L (3.5-5.1) Chloride Level 107 mmol/L (98-107) Carbon Dioxide Level 25 mmol/L (21-32) Anion Gap 10 (6-14) Blood Urea Nitrogen 17 mg/dL (8-26) Creatinine 2.0 mg/dL (0.7-1.3) Estimated GFR (Cockcroft-Gault) 40.5 Glucose Level 134 mg/dL (70-99) Calcium Level 8.1 mg/dL (8.5-10.1) Troponin I Quantitative 0.699 ng/mL (0.000-0.055) O2 Saturation 98 % (92-99) Arterial Blood pH 7.48 (7.35-7.45) Arterial Blood pCO2 at Patient Temp 31 mmHg (35-46) Arterial Blood pO2 at Patient Temp 144 mmHg (65-108) Arterial Blood HCO3 22 mmol/L (21-28) Arterial Blood Base Excess -1 mmol/L (-3-3) FiO2 40% Laboratory Tests Test 04/28/18 11:00 04/29/18 00:15 04/29/18 04:15 04/29/18 06:09 Heparin Anti-Xa Act, Unfractionated > 1.10 IU/mL (0.30-0.70) Glucose (Fingerstick) 121 mg/dL (70-99) 114 mg/dL (70-99) White Blood Count 5.5 x10^3/uL (4.0-11.0) Red Blood Count 4.25 x10^6/uL (4.30-5.70) Hemoglobin 13.1 g/dL (13.0-17.5) Hematocrit 38.1 % (39.0-53.0) Mean Corpuscular Volume 90 fL (79-100) Mean Corpuscular Hemoglobin 31 pg (25-35) Mean Corpuscular Hemoglobin Concent 34 g/dL (31-37) Red Cell Distribution Width 14.6 % (11.5-14.5) Platelet Count 179 x10^3/uL (140-400) Sodium Level 142 mmol/L (136-145) Potassium Level 4.1 mmol/L (3.5-5.1) Chloride Level 107 mmol/L (98-107) Carbon Dioxide Level 25 mmol/L (21-32) Anion Gap 10 (6-14) Blood Urea Nitrogen 17 mg/dL (8-26) Creatinine 2.0 mg/dL (0.7-1.3) Estimated GFR (Cockcroft-Gault) 40.5 Glucose Level 134 mg/dL (70-99) Calcium Level 8.1 mg/dL (8.5-10.1) Troponin I Quantitative 0.699 ng/mL (0.000-0.055) Test 04/29/18 08:10 O2 Saturation 98 % (92-99) Arterial Blood pH 7.48 (7.35-7.45) Arterial Blood pCO2 at Patient Temp 31 mmHg (35-46) Arterial Blood pO2 at Patient Temp 144 mmHg (65-108) Arterial Blood HCO3 22 mmol/L (21-28) Arterial Blood Base Excess -1 mmol/L (-3-3) FiO2 40% GIACOMO PAULINO MD Apr 29, 2018 09:47
[2018-04-29] MEDS ORDERED: LIDOCAINE 1%/EPI 1:100,000 20 ML VIAL. ONE (09:48)
--- NOTE | 2018-04-29 10:03 | NUR ---
0827 per radiology port a cath malpositioned. All IV fluids infusing through the cath were stopped. Port a cath was de accessed. 0835 Dr Agarwal was made aware of and orders to consult IR were placed. Consents signed for removal of port a cath. IR is in the patients room removing the catheter as this note is being written at 1007. Will continue to monitor.
[2018-04-29] MEDS ORDERED: LIDOCAINE 1%/EPI 1:100,000 20 ML VIAL. INJ ONE (10:15)
[2018-04-29] MEDS ORDERED: fentaNYL PF VIAL 100 MCG/2 ML VIAL IV PRN ×2 (10:15)
--- NOTE | 2018-04-29 11:28 | PDOC ---
PULMONARY PROGRESS NOTES Subjective remains intubated/ sedated/ off levophed AC mode Vitals Vital Signs Date Time Temp Pulse Resp B/P (MAP) Pulse Ox O2 Delivery O2 Flow Rate FiO2 04/29/18 11:14 100 Ventilator 04/29/18 11:04 18 04/29/18 11:00 85 103/70 (81) 04/29/18 08:00 98.4 98.4 04/28/18 16:00 2.0 Lungs: Other (decrease bs) Cardiovascular: S1, S2 Abdomen: Soft Extremities: Other (1+edema) Labs Laboratory Tests Test 04/28/18 02:10 04/28/18 02:20 04/28/18 03:05 04/28/18 04:14 White Blood Count 9.2 x10^3/uL (4.0-11.0) Red Blood Count 4.64 x10^6/uL (4.30-5.70) Hemoglobin 14.7 g/dL (13.0-17.5) Hematocrit 41.7 % (39.0-53.0) Mean Corpuscular Volume 90 fL (79-100) Mean Corpuscular Hemoglobin 32 pg (25-35) Mean Corpuscular Hemoglobin Concent 35 g/dL (31-37) Red Cell Distribution Width 14.8 % (11.5-14.5) Platelet Count 193 x10^3/uL (140-400) Neutrophils (%) (Auto) 29 % (31-73) Lymphocytes (%) (Auto) 49 % (24-48) Monocytes (%) (Auto) 20 % (0-9) Eosinophils (%) (Auto) 2 % (0-3) Basophils (%) (Auto) 1 % (0-3) Neutrophils # (Auto) 2.6 x10^3uL (1.8-7.7) Lymphocytes # (Auto) 4.5 x10^3/uL (1.0-4.8) Monocytes # (Auto) 1.8 x10^3/uL (0.0-1.1) Eosinophils # (Auto) 0.2 x10^3/uL (0.0-0.7) Basophils # (Auto) 0.1 x10^3/uL (0.0-0.2) Segmented Neutrophils % 26 % (35-66) Lymphocytes % 53 % (24-48) Monocytes % 18 % (0-10) Eosinophils % 2 % (0-5) Basophils % 1 % (0-3) Smudge Cells Present Platelet Estimate Adequate (ADEQUATE) Sodium Level 142 mmol/L (136-145) Potassium Level 4.2 mmol/L (3.5-5.1) Chloride Level 107 mmol/L (98-107) Carbon Dioxide Level 26 mmol/L (21-32) Anion Gap 9 (6-14) Blood Urea Nitrogen 14 mg/dL (8-26) Creatinine 1.7 mg/dL (0.7-1.3) Estimated GFR (Cockcroft-Gault) 48.9 BUN/Creatinine Ratio 8 (6-20) Glucose Level 207 mg/dL (70-99) Lactic Acid Level 1.7 mmol/L (0.4-2.0) Calcium Level 8.3 mg/dL (8.5-10.1) Total Bilirubin 0.6 mg/dL (0.2-1.0) Aspartate Amino Transf (AST/SGOT) 44 U/L (15-37) Alanine Aminotransferase (ALT/SGPT) 57 U/L (16-63) Alkaline Phosphatase 104 U/L (46-116) Troponin I Quantitative 0.150 ng/mL (0.000-0.055) [id number]-[id number]-Type Natriuretic Peptide 1640 pg/mL (0-124) Total Protein 7.6 g/dL (6.4-8.2) Albumin 3.7 g/dL (3.4-5.0) Albumin/Globulin Ratio 0.9 (1.0-1.7) Influenza Type A Antigen Negative (NEGATIVE) Influenza Type B Antigen Negative (NEGATIVE) O2 Saturation 92 % (92-99) 95 % (92-99) Arterial Blood pH 7.15 (7.35-7.45) 7.13 (7.35-7.45) Arterial Blood pCO2 at Patient Temp 74 mmHg (35-46) 73 mmHg (35-46) Arterial Blood pO2 at Patient Temp 82 mmHg (65-108) 97 mmHg (65-108) Arterial Blood HCO3 25 mmol/L (21-28) 24 mmol/L (21-28) Arterial Blood Base Excess -6 mmol/L (-3-3) -7 mmol/L (-3-3) Oxyhemoglobin 91.6 % Methemoglobin 0.5 % (0.0-1.9) Carbon Monoxide, Quantitative 0.2 % (0.0-1.9) FiO2 60 60 Test 04/28/18 07:00 04/28/18 09:08 04/28/18 09:30 04/28/18 11:00 Nasal Screen MRSA (PCR) Negative (Negative) O2 Saturation 99 % (92-99) Arterial Blood pH 7.40 (7.35-7.45) Arterial Blood pCO2 at Patient Temp 38 mmHg (35-46) Arterial Blood pO2 at Patient Temp 186 mmHg (65-108) Arterial Blood HCO3 23 mmol/L (21-28) Arterial Blood Base Excess -1 mmol/L (-3-3) FiO2 60 Troponin I Quantitative 0.283 ng/mL (0.000-0.055) Urine Opiates Screen Neg (NEG) Urine Methadone Screen Neg (NEG) Urine Barbiturates Neg (NEG) Urine Phencyclidine Screen Neg (NEG) Urine Amphetamine/Methamphetamine Neg (NEG) Urine Benzodiazepines Screen Pos (NEG) Urine Cocaine Screen Neg (NEG) Urine Cannabinoids Screen Neg (NEG) Urine Ethyl Alcohol Neg (NEG) Heparin Anti-Xa Act, Unfractionated > 1.10 IU/mL (0.30-0.70) Test 04/29/18 00:15 04/29/18 04:15 04/29/18 06:09 04/29/18 08:10 Glucose (Fingerstick) 121 mg/dL (70-99) 114 mg/dL (70-99) White Blood Count 5.5 x10^3/uL (4.0-11.0) Red Blood Count 4.25 x10^6/uL (4.30-5.70) Hemoglobin 13.1 g/dL (13.0-17.5) Hematocrit 38.1 % (39.0-53.0) Mean Corpuscular Volume 90 fL (79-100) Mean Corpuscular Hemoglobin 31 pg (25-35) Mean Corpuscular Hemoglobin Concent 34 g/dL (31-37) Red Cell Distribution Width 14.6 % (11.5-14.5) Platelet Count 179 x10^3/uL (140-400) Sodium Level 142 mmol/L (136-145) Potassium Level 4.1 mmol/L (3.5-5.1) Chloride Level 107 mmol/L (98-107) Carbon Dioxide Level 25 mmol/L (21-32) Anion Gap 10 (6-14) Blood Urea Nitrogen 17 mg/dL (8-26) Creatinine 2.0 mg/dL (0.7-1.3) Estimated GFR (Cockcroft-Gault) 40.5 Glucose Level 134 mg/dL (70-99) Calcium Level 8.1 mg/dL (8.5-10.1) Troponin I Quantitative 0.699 ng/mL (0.000-0.055) O2 Saturation 98 % (92-99) Arterial Blood pH 7.48 (7.35-7.45) Arterial Blood pCO2 at Patient Temp 31 mmHg (35-46) Arterial Blood pO2 at Patient Temp 144 mmHg (65-108) Arterial Blood HCO3 22 mmol/L (21-28) Arterial Blood Base Excess -1 mmol/L (-3-3) FiO2 40% Laboratory Tests Test 04/29/18 00:15 04/29/18 04:15 04/29/18 06:09 04/29/18 08:10 Glucose (Fingerstick) 121 mg/dL (70-99) 114 mg/dL (70-99) White Blood Count 5.5 x10^3/uL (4.0-11.0) Red Blood Count 4.25 x10^6/uL (4.30-5.70) Hemoglobin 13.1 g/dL (13.0-17.5) Hematocrit 38.1 % (39.0-53.0) Mean Corpuscular Volume 90 fL (79-100) Mean Corpuscular Hemoglobin 31 pg (25-35) Mean Corpuscular Hemoglobin Concent 34 g/dL (31-37) Red Cell Distribution Width 14.6 % (11.5-14.5) Platelet Count 179 x10^3/uL (140-400) Sodium Level 142 mmol/L (136-145) Potassium Level 4.1 mmol/L (3.5-5.1) Chloride Level 107 mmol/L (98-107) Carbon Dioxide Level 25 mmol/L (21-32) Anion Gap 10 (6-14) Blood Urea Nitrogen 17 mg/dL (8-26) Creatinine 2.0 mg/dL (0.7-1.3) Estimated GFR (Cockcroft-Gault) 40.5 Glucose Level 134 mg/dL (70-99) Calcium Level 8.1 mg/dL (8.5-10.1) Troponin I Quantitative 0.699 ng/mL (0.000-0.055) O2 Saturation 98 % (92-99) Arterial Blood pH 7.48 (7.35-7.45) Arterial Blood pCO2 at Patient Temp 31 mmHg (35-46) Arterial Blood pO2 at Patient Temp 144 mmHg (65-108) Arterial Blood HCO3 22 mmol/L (21-28) Arterial Blood Base Excess -1 mmol/L (-3-3) FiO2 40% Medications Active Scripts Medications Dose Route/Sig Max Daily Dose Days Date Category Zofran (Ondansetron Hcl) 8 Mg Tablet 1 Tab PO Q8HRS 03/08/18 Reported Zetia (Ezetimibe) 10 Mg Tablet 1 Tab PO DAILY 02/22/18 Reported Folic Acid 1 Mg Tablet 1 Tab PO DAILY 02/22/18 Reported Aspirin 81 Mg Tab.chew 1 Tab PO DAILY 02/22/18 Reported Carvedilol (Carvedilol) 3.125 Mg Tablet 1 Tab PO BID 02/22/18 Reported Levetiracetam 500 Mg Tablet 1 Tab PO BID 02/22/18 Reported Comments cxr resolved interstitial infilt port abnormal Impression . 1. Acute hypercapnic and hypoxic respiratory failure secondary to multifactorial etiologies including extensive bibasilar pneumonia, acute exacerbation of chronic obstructive pulmonary disease./ ? diastolic HF. Clinically, less likely pulmonary embolism, 2. Metastatic colon cancer with mets to the liver, undergoing chemotherapy. 3. Abnormal CT chest with extensive bibasilar consolidation. There is some nodularity seen in the left lower lobe consolidation and metastasis to the lung cannot be ruled out. 4. Hypotension, requiring vasopressor likely septic shock from pneumonia. 5. History of nonischemic cardiomyopathy with an ejection fraction of 20%, Plan . 1. Continue with present assist control mode. 2. off of the Levophed. 3. echocardiogram with no RV dysfunction. EF 15% 4. Follow Cardiology recommendation. 5. Follow Oncology recommendation. 6. oxygenation improved. cxr much improved. will start weaning off sedation and CPAP trial later 7. DVT prophylaxis, 8. Stress ulcer prophylaxis. 9. Broad spectrum antibiotics to continue. 10. Discussed with RN and RT. port removed Critical care time 30 min BRANNON BERNAL MD Apr 29, 2018 11:28
--- NOTE | 2018-04-29 11:51 | PDOC ---
CARDIOLOGY PROGRESS NOTE SUBJECTIVE: No acute events overnight. Trying to extubate today per nursing report. No arrhythmias on tele. OBJECTIVE: Vital SIgns: Vital Signs Date Time Temp Pulse Resp B/P (MAP) Pulse Ox O2 Delivery O2 Flow Rate FiO2 04/29/18 11:14 100 Ventilator 04/29/18 11:04 18 04/29/18 11:00 85 103/70 (81) 04/29/18 08:00 98.4 98.4 04/28/18 16:00 2.0 I & O Intake and Output 04/29/18 07:01 Intake Total 3517 ml Output Total 1990 ml Balance 1527 ml Intake IV Total 2532 ml Tube Feeding 585 ml Other 400 ml Output Urine Total 1990 ml # Bowel Movements 2 Objective: Sedated Normal heart tones Mild rhonchi 2+ pedal/radial pulses. Soft abd. CURRENT MEDICATIONS: asa, coreg, zetia DIAGNOSTIC TESTING: Cr 2.0 ASSESSMENT: 1. NICM with acute resp failure due to PNA 2. Prior drug abuse 3. Colon CA PLAN: 1. Continue supportive care. Severe LV dysfunction noted. 2. May need ionotropic support but currently w/o any pressor needs. DAVID MEDELLIN MD Apr 29, 2018 11:51
[2018-04-29 13:36] LABS: BASE EXCESS ABG 1 mmol/L (-3-3); HCO3 ABG 24 mmol/L (21-28); PCO2 ABG 36 mmHg (35-46); PO2 ABG 79 mmHg (65-108); SAT O2 ABG 96 % (92-99)
[2018-04-29 13:39] LABS: FIO2 ABG 35
[2018-04-29] MEDS ORDERED: HEPARIN for SUB-Q USE 5,000 UNIT/ML VIAL. SQ SCH (14:00)
--- NOTE | 2018-04-29 14:00 | NUR ---
Patient extubated at or around [address] Agarwal. Patient currently on 3LNC, showing no apparent signs of distress. Bedside swallow ordered for 04/30. Will continue to monitor.
[2018-04-29] MEDS ORDERED: METOPROLOL TARTRATE 5 MG/5 ML VIAL. IVP PRN (17:30)
[2018-04-29] MEDS: FAMOTIDINE 20 MG TABLET. PO SCH (20:31)
[2018-04-29] MEDS ORDERED: levETIRAcetam 500 MG in IV DEXTROSE 5% 100ML 100 ML IV SCH (21:00)
[2018-04-30] VITALS (16 sets, daily range): BP systolic 98–144; BP diastolic 46–95
[2018-04-30] MEDS: PIPERACILLIN/TAZOBACTAM 3.375 GM in IV NORMAL SALINE 50ML 50 ML IV SCH ×5 (00:11→23:50)
[2018-04-30 03:39] LABS: CALCIUM 8.3 mg/dL (8.5-10.1); CREATININE 1.7 mg/dL (0.7-1.3); GFR 48.9
[2018-04-30] MEDS: HEPARIN for SUB-Q USE 5,000 UNIT/ML VIAL. SQ SCH ×2 (05:18→21:18)
[2018-04-30] MEDS: CARVEDILOL 3.125 MG TABLET. PO SCH ×2 (08:35→17:00)
--- NOTE | 2018-04-30 08:56 | PDOC ---
SUBJECTIVE Subjective S: Doing much better, extubated, feeling well, sitting in chair O: Physical exam: Gen.: Well-nourished and well-developed, resting in chair Lungs: Breathing comfortably with no evidence of respiratory distress Psychiatric: Pleasant mood and affect Labs: White count 5000, hemoglobin 13, platelets 179 Influenza negative MRSA negative Creatinine 1.7 Assessment and Plan: He is a 68-year-old man who recently started chemotherapy neoadjuvant for metastatic colon cancer with anticipation of colon surgery and surgical excision of 2 liver metastases, chemotherapy initially delayed due to prolonged C. difficile requiring vancomycin taper, and now being treated for pneumonia after acute respiratory failure requiring intubation on admit, he's much better today. NSTEMI: Cardiology is involved, off pressors Respiratory failure: Extubated, pulmonary is involved Pneumonia: On antibiotics Colon cancer: Chemotherapy on hold for current admission, likely need to dose reduce dose prior to next cycle of chemotherapy and see us as an outpatient as well to ensure infection has been adequately treated Loose stools: x 2, have been formed prior, C. difficile pending Disposition: per others, he will follow-up with us prior to next chemotherapy Port: needed revision, removed, will likely replace prior to next chemotherapy Thank you kindly and please do not hesitate to call with questions. OBJECTIVE Vital Signs Vital Signs Date Time Temp Pulse Resp B/P (MAP) Pulse Ox O2 Delivery O2 Flow Rate FiO2 04/30/18 08:35 96 134/86 04/30/18 08:00 98.0 102 16 134/86 (102) 99 Room Air 98.0 04/30/18 07:00 91 14 122/80 (94) 98 Room Air 04/30/18 06:00 90 12 131/76 (94) 99 Room Air 04/30/18 05:00 92 12 119/81 (94) 99 Room Air 04/30/18 04:00 98.0 94 14 111/76 (88) 97 Room Air 98.0 04/30/18 04:00 Room Air 04/30/18 03:00 92 12 113/76 (88) 99 Room Air 04/30/18 02:00 92 12 108/68 (81) 99 Room Air 04/30/18 01:01 89 12 101/61 (74) 97 Room Air 04/30/18 00:00 98.0 90 12 98/46 (63) 98 Room Air 98.0 04/29/18 23:50 Room Air 04/29/18 23:00 92 12 112/68 (83) 97 Room Air 04/29/18 22:00 100 16 122/79 (93) 97 Room Air 04/29/18 21:00 100 16 112/74 (87) 97 Room Air 04/29/18 20:00 98.4 100 14 108/75 (86) 98 Room Air 98.4 04/29/18 20:00 Room Air 04/29/18 19:00 103 16 102/70 (81) 97 Room Air 04/29/18 18:00 102 16 105/66 (79) 97 Room Air 04/29/18 17:00 105 16 105/69 (81) 92 Room Air 04/29/18 17:00 104 105/69 04/29/18 16:00 98.5 103 16 111/72 (85) 98 Nasal Cannula 2.0 98.5 04/29/18 16:00 Nasal Cannula 2.0 04/29/18 15:00 108 16 123/74 (90) 94 Nasal Cannula 2.0 04/29/18 14:00 119 18 140/87 (104) 99 Nasal Cannula 3.0 04/29/18 13:02 100 Ventilator 04/29/18 13:00 96 18 130/83 (99) 100 Ventilator 04/29/18 12:00 98.1 95 18 119/82 (94) 100 Ventilator 98.1 04/29/18 12:00 Mechanical Ventilator 04/29/18 11:14 100 Ventilator 04/29/18 11:04 18 99 Ventilator 04/29/18 11:00 85 18 103/70 (81) 99 Ventilator 04/29/18 10:31 18 99 Ventilator 04/29/18 10:00 96 18 130/94 (106) 99 Ventilator 04/29/18 09:07 96 136/88 04/29/18 09:03 100 Ventilator 04/29/18 09:00 98 18 136/88 (104) 100 Ventilator I & O Intake and Output 04/30/18 07:01 Intake Total 926.07 ml Output Total 2180 ml Balance -1253.93 ml Intake IV Total 726.07 ml Tube Feeding 200 ml Output Urine Total 2180 ml # Bowel Movements 2 COMMENT Lab Laboratory Tests Test 04/29/18 13:30 04/30/18 03:05 O2 Saturation 96 % (92-99) Arterial Blood pH 7.45 (7.35-7.45) Arterial Blood pCO2 at Patient Temp 36 mmHg (35-46) Arterial Blood pO2 at Patient Temp 79 mmHg (65-108) Arterial Blood HCO3 24 mmol/L (21-28) Arterial Blood Base Excess 1 mmol/L (-3-3) FiO2 35 Sodium Level 142 mmol/L (136-145) Potassium Level 4.0 mmol/L (3.5-5.1) Chloride Level 108 mmol/L (98-107) Carbon Dioxide Level 26 mmol/L (21-32) Anion Gap 8 (6-14) Blood Urea Nitrogen 13 mg/dL (8-26) Creatinine 1.7 mg/dL (0.7-1.3) Estimated GFR (Cockcroft-Gault) 48.9 Glucose Level 81 mg/dL (70-99) Calcium Level 8.3 mg/dL (8.5-10.1) Magnesium Level 2.0 mg/dL (1.8-2.4) GIACOMO MARIN MD Apr 30, 2018 08:56
[2018-04-30] MEDS: EZETIMIBE 10 MG TABLET. PO SCH (09:10)
[2018-04-30] MEDS: FOLIC ACID 1 MG TABLET. PO SCH (09:11)
[2018-04-30] MEDS: levETIRAcetam 500 MG TABLET PO SCH ×2 (09:11→21:17)
[2018-04-30] MEDS: ASPIRIN CHEWABLE 81 MG TABLET. PO SCH (09:11)
--- NOTE | 2018-04-30 12:14 | PDOC ---
PULMONARY PROGRESS NOTES Subjective extubated 04/29 on RA Vitals Vital Signs Date Time Temp Pulse Resp B/P (MAP) Pulse Ox O2 Delivery O2 Flow Rate FiO2 04/30/18 11:00 93 16 119/73 (88) 98 Room Air 04/30/18 08:00 98.0 98.0 04/29/18 16:00 2.0 General: Alert, No acute distress Lungs: Clear Cardiovascular: S1, S2 Abdomen: Soft Extremities: Other (1+edema) Labs Laboratory Tests Test 04/29/18 00:15 04/29/18 04:15 04/29/18 06:09 04/29/18 08:10 Glucose (Fingerstick) 121 mg/dL (70-99) 114 mg/dL (70-99) White Blood Count 5.5 x10^3/uL (4.0-11.0) Red Blood Count 4.25 x10^6/uL (4.30-5.70) Hemoglobin 13.1 g/dL (13.0-17.5) Hematocrit 38.1 % (39.0-53.0) Mean Corpuscular Volume 90 fL (79-100) Mean Corpuscular Hemoglobin 31 pg (25-35) Mean Corpuscular Hemoglobin Concent 34 g/dL (31-37) Red Cell Distribution Width 14.6 % (11.5-14.5) Platelet Count 179 x10^3/uL (140-400) Sodium Level 142 mmol/L (136-145) Potassium Level 4.1 mmol/L (3.5-5.1) Chloride Level 107 mmol/L (98-107) Carbon Dioxide Level 25 mmol/L (21-32) Anion Gap 10 (6-14) Blood Urea Nitrogen 17 mg/dL (8-26) Creatinine 2.0 mg/dL (0.7-1.3) Estimated GFR (Cockcroft-Gault) 40.5 Glucose Level 134 mg/dL (70-99) Calcium Level 8.1 mg/dL (8.5-10.1) Troponin I Quantitative 0.699 ng/mL (0.000-0.055) O2 Saturation 98 % (92-99) Arterial Blood pH 7.48 (7.35-7.45) Arterial Blood pCO2 at Patient Temp 31 mmHg (35-46) Arterial Blood pO2 at Patient Temp 144 mmHg (65-108) Arterial Blood HCO3 22 mmol/L (21-28) Arterial Blood Base Excess -1 mmol/L (-3-3) FiO2 40% Test 04/29/18 13:30 04/30/18 03:05 O2 Saturation 96 % (92-99) Arterial Blood pH 7.45 (7.35-7.45) Arterial Blood pCO2 at Patient Temp 36 mmHg (35-46) Arterial Blood pO2 at Patient Temp 79 mmHg (65-108) Arterial Blood HCO3 24 mmol/L (21-28) Arterial Blood Base Excess 1 mmol/L (-3-3) FiO2 35 Sodium Level 142 mmol/L (136-145) Potassium Level 4.0 mmol/L (3.5-5.1) Chloride Level 108 mmol/L (98-107) Carbon Dioxide Level 26 mmol/L (21-32) Anion Gap 8 (6-14) Blood Urea Nitrogen 13 mg/dL (8-26) Creatinine 1.7 mg/dL (0.7-1.3) Estimated GFR (Cockcroft-Gault) 48.9 Glucose Level 81 mg/dL (70-99) Calcium Level 8.3 mg/dL (8.5-10.1) Magnesium Level 2.0 mg/dL (1.8-2.4) Laboratory Tests Test 04/29/18 13:30 04/30/18 03:05 O2 Saturation 96 % (92-99) Arterial Blood pH 7.45 (7.35-7.45) Arterial Blood pCO2 at Patient Temp 36 mmHg (35-46) Arterial Blood pO2 at Patient Temp 79 mmHg (65-108) Arterial Blood HCO3 24 mmol/L (21-28) Arterial Blood Base Excess 1 mmol/L (-3-3) FiO2 35 Sodium Level 142 mmol/L (136-145) Potassium Level 4.0 mmol/L (3.5-5.1) Chloride Level 108 mmol/L (98-107) Carbon Dioxide Level 26 mmol/L (21-32) Anion Gap 8 (6-14) Blood Urea Nitrogen 13 mg/dL (8-26) Creatinine 1.7 mg/dL (0.7-1.3) Estimated GFR (Cockcroft-Gault) 48.9 Glucose Level 81 mg/dL (70-99) Calcium Level 8.3 mg/dL (8.5-10.1) Magnesium Level 2.0 mg/dL (1.8-2.4) Medications Active Scripts Medications Dose Route/Sig Max Daily Dose Days Date Category Zofran (Ondansetron Hcl) 8 Mg Tablet 1 Tab PO Q8HRS 03/08/18 Reported Zetia (Ezetimibe) 10 Mg Tablet 1 Tab PO DAILY 02/22/18 Reported Folic Acid 1 Mg Tablet 1 Tab PO DAILY 02/22/18 Reported Aspirin 81 Mg Tab.chew 1 Tab PO DAILY 02/22/18 Reported Carvedilol (Carvedilol) 3.125 Mg Tablet 1 Tab PO BID 02/22/18 Reported Levetiracetam 500 Mg Tablet 1 Tab PO BID 02/22/18 Reported Comments cxr resolved interstitial infilt port abnormal Impression . 1. Acute hypercapnic and hypoxic respiratory failure secondary to multifactorial etiologies including extensive bibasilar pneumonia, acute exacerbation of chronic obstructive pulmonary disease./ ? diastolic HF. Clinically, less likely pulmonary embolism, extubated 04/29 2. Metastatic colon cancer with mets to the liver, undergoing chemotherapy. 3. Abnormal CT chest with extensive bibasilar consolidation. There is some nodularity seen in the left lower lobe consolidation and metastasis to the lung cannot be ruled out. 4. Hypotension, requiring vasopressor likely septic shock from pneumonia. resolved 5. History of nonischemic cardiomyopathy with an ejection fraction of 20%, Plan . 1. extubated 04/29 2. PO nutrition 3. echocardiogram with no RV dysfunction. EF 15% 4. Follow Cardiology recommendation. 5. Follow Oncology recommendation. 6. cxr much improved. 7. DVT prophylaxis, 8. Stress ulcer prophylaxis. 9. antibiotics 10. Discussed with industrial equipment wirer to floor BRANNON BERNAL MD Apr 30, 2018 12:14
--- NOTE | 2018-04-30 13:38 | PDOC ---
PROGRESS NOTES Chief Complaint Chief Complaint 1. Acute respiratory failure secondary; multifactorial given PNA and AECOPD. s/ p extubation. 2. Mild acute on chronic systolic HF with NICM; LVEF 20-25% 3. NSTEMI; initial trop 0.15. Most probably type II demand ischemia 4. Accelerated hypertension, POA. Now with hypotension requiring pressor support. 5. CAD; non-obstructive. 06/2017 LHC 30% to LAD lesion, LCx no occlusion, ramus occluded, RCA with 30-40% proximal lesion. was treated medically at that time 6. Colon CA with liver metastasis 7. CKD 8. Hyperlipidemia; LDL 78 02/2018 9. Slight hematuria 10. Hx of seizures 11. Hx of substance abuse Plan: Extubated Patient continues to do well and may be moved to the regular floor resume home medications Maintain negative fluid balance History of Present Illness History of Present Illness Patient sitting in chair in no apparent distress. Good appetite and has been able to eat his and titrated this morning. No complaints during my interview in no acute distress Vitals Vitals Vital Signs Date Time Temp Pulse Resp B/P (MAP) Pulse Ox O2 Delivery O2 Flow Rate FiO2 04/30/18 12:00 97.7 90 18 134/78 (96) 98 Room Air 97.7 04/29/18 16:00 2.0 Physical Exam General: Other (intubated/sedated ) Heart: Regular rate, Other (distant heart tones) Lungs: Clear Abdomen: Soft Extremities: Normal pulses, Other (trace bilateral LE edema ) Skin: No significant lesion Labs LABS Laboratory Tests Test 04/30/18 03:05 Sodium Level 142 mmol/L (136-145) Potassium Level 4.0 mmol/L (3.5-5.1) Chloride Level 108 mmol/L (98-107) Carbon Dioxide Level 26 mmol/L (21-32) Anion Gap 8 (6-14) Blood Urea Nitrogen 13 mg/dL (8-26) Creatinine 1.7 mg/dL (0.7-1.3) Estimated GFR (Cockcroft-Gault) 48.9 Glucose Level 81 mg/dL (70-99) Calcium Level 8.3 mg/dL (8.5-10.1) Magnesium Level 2.0 mg/dL (1.8-2.4) Review of Systems Review of Systems pertinent as per hpi otherwise 14 point review of systems is negative. Assessment and Plan Assessmemt and Plan Problems Medical Problems: (1) Acute congestive heart failure Status: Acute (2) Acute respiratory failure with hypoxia and hypercapnia Status: Acute (3) Elevated troponin Status: Acute Comment Review of Relevant I have reviewed the following items gala (where applicable) has been applied. Labs Laboratory Tests Test 04/29/18 00:15 04/29/18 04:15 04/29/18 06:09 04/29/18 08:10 Glucose (Fingerstick) 121 mg/dL (70-99) 114 mg/dL (70-99) White Blood Count 5.5 x10^3/uL (4.0-11.0) Red Blood Count 4.25 x10^6/uL (4.30-5.70) Hemoglobin 13.1 g/dL (13.0-17.5) Hematocrit 38.1 % (39.0-53.0) Mean Corpuscular Volume 90 fL (79-100) Mean Corpuscular Hemoglobin 31 pg (25-35) Mean Corpuscular Hemoglobin Concent 34 g/dL (31-37) Red Cell Distribution Width 14.6 % (11.5-14.5) Platelet Count 179 x10^3/uL (140-400) Sodium Level 142 mmol/L (136-145) Potassium Level 4.1 mmol/L (3.5-5.1) Chloride Level 107 mmol/L (98-107) Carbon Dioxide Level 25 mmol/L (21-32) Anion Gap 10 (6-14) Blood Urea Nitrogen 17 mg/dL (8-26) Creatinine 2.0 mg/dL (0.7-1.3) Estimated GFR (Cockcroft-Gault) 40.5 Glucose Level 134 mg/dL (70-99) Calcium Level 8.1 mg/dL (8.5-10.1) Troponin I Quantitative 0.699 ng/mL (0.000-0.055) O2 Saturation 98 % (92-99) Arterial Blood pH 7.48 (7.35-7.45) Arterial Blood pCO2 at Patient Temp 31 mmHg (35-46) Arterial Blood pO2 at Patient Temp 144 mmHg (65-108) Arterial Blood HCO3 22 mmol/L (21-28) Arterial Blood Base Excess -1 mmol/L (-3-3) FiO2 40% Test 04/29/18 13:30 04/30/18 03:05 O2 Saturation 96 % (92-99) Arterial Blood pH 7.45 (7.35-7.45) Arterial Blood pCO2 at Patient Temp 36 mmHg (35-46) Arterial Blood pO2 at Patient Temp 79 mmHg (65-108) Arterial Blood HCO3 24 mmol/L (21-28) Arterial Blood Base Excess 1 mmol/L (-3-3) FiO2 35 Sodium Level 142 mmol/L (136-145) Potassium Level 4.0 mmol/L (3.5-5.1) Chloride Level 108 mmol/L (98-107) Carbon Dioxide Level 26 mmol/L (21-32) Anion Gap 8 (6-14) Blood Urea Nitrogen 13 mg/dL (8-26) Creatinine 1.7 mg/dL (0.7-1.3) Estimated GFR (Cockcroft-Gault) 48.9 Glucose Level 81 mg/dL (70-99) Calcium Level 8.3 mg/dL (8.5-10.1) Magnesium Level 2.0 mg/dL (1.8-2.4) Laboratory Tests Test 04/30/18 03:05 Sodium Level 142 mmol/L (136-145) Potassium Level 4.0 mmol/L (3.5-5.1) Chloride Level 108 mmol/L (98-107) Carbon Dioxide Level 26 mmol/L (21-32) Anion Gap 8 (6-14) Blood Urea Nitrogen 13 mg/dL (8-26) Creatinine 1.7 mg/dL (0.7-1.3) Estimated GFR (Cockcroft-Gault) 48.9 Glucose Level 81 mg/dL (70-99) Calcium Level 8.3 mg/dL (8.5-10.1) Magnesium Level 2.0 mg/dL (1.8-2.4) Microbiology 04/28/18 Blood Culture - Preliminary, Resulted NO GROWTH AFTER 2 DAYS Medications Current Medications Albuterol/ Ipratropium (Duoneb) 3 ml 1X ONCE NEB Last administered on at 02:12; Start 04/28/18 at 02:30; Stop 04/28/18 at 02:31; Status DC Furosemide (Lasix) 40 mg 1X ONCE IVP Last administered on 04/28/18at 03:24; Start 04/28/18 at 03:30; Stop 04/28/18 at 03:31; Status DC Piperacillin Sod/ Tazobactam Sod (Zosyn Per Pharmacy) 1 each PRN DAILY PRN MC SEE COMMENTS; Start 04/28/18 at 03:15 Piperacillin Sod/ Tazobactam Sod 3.375 gm/Sodium Chloride 50 ml @ 100 mls/hr Q6HRS IV Last administered on 04/30/18at 11:42; Start 04/28/18 at 03:30 Propofol 50 ml @ As Directed STK-MED ONCE IV ; Start 04/28/18 at 04:24; Stop 04/28 at 04:26; Status DC Heparin Sodium (Porcine) (Heparin Sodium) 7,250 unit 1X ONCE IV Last administered on 04/28/18at 04:53; Start 04/28/18 at 05:00; Stop 04/28/18 at 14:08; Status DC Heparin Sodium/ Dextrose 500 ml @ 0 mls/hr CONT PRN IV SEE I/O RECORD Last administered on 04/28/18at 05:04; Start 04/28/18 at 04:30; Stop 04/28/18 at 14:08; Status DC Heparin Sodium (Porcine) (Heparin Sodium) 2,700 unit PRN Q6HRS PRN IV FOR UFH LEVEL LESS THAN 0.2; Start 04/28/18 at 04:30; Stop 04/28/18 at 14:08; Status DC Heparin Sodium (Porcine) (Heparin Sodium) 1,350 unit PRN Q6HRS PRN IV FOR UFH LEVEL 0.2 - 0.29; Start 04/28/18 at 04:30; Stop 04/28/18 at 14:08; Status DC Info (Anti-Coagulation Monitoring By Pharmacy) 1 each PRN DAILY PRN MC SEE COMMENTS Last administered on 04/28/18at 05:49; Start 04/28/18 at 04:45; Stop 04/30 at 08:10; Status DC Levofloxacin/ Dextrose 100 ml @ 100 mls/hr 1X ONCE IV Last administered on 04/28/18at 05:04; Start 04/28/18 at 05:00; Stop 04/28/18 at 05:59; Status DC Midazolam HCl (Versed) 5 mg 1X ONCE IV Last administered on 04/28/18at 04:57; Start 04/28/18 at 05:15; Stop 04/28/18 at 05:16; Status DC Propofol 50 ml @ 1.361 mls/ hr 1X ONCE IV Last administered on 04/28/18at 04:46 ; Start 04/28/18 at 05:15; Stop 04/29/18 at 17:59; Status DC Succinylcholine Chloride (Anectine) 200 mg STK-MED ONCE .ROUTE ; Start 04/28/18 at 05:11; Stop 04/28/18 at 05:13; Status DC Succinylcholine Chloride (Anectine) 100 mg 1X ONCE IV Last administered on 04/28at 04:37; Start 04/28/18 at 06:00; Stop 04/28/18 at 06:01; Status DC Propofol (Diprivan) 100 mg 1X ONCE IV Last administered on 04/28/18at 04:36; Start 04/28/18 at 06:00; Stop 04/28/18 at 06:01; Status DC Albuterol/ Ipratropium (Duoneb) 3 ml 1X ONCE NEB Last administered on at 05:42; Start 04/28/18 at 06:00; Stop 04/28/18 at 06:01; Status DC Midazolam HCl (Versed) 5 mg 1X ONCE IV Last administered on 04/28/18at 05:57; Start 04/28/18 at 06:30; Stop 04/28/18 at 06:31; Status DC Sodium Chloride 1,000 ml @ 1,000 mls/hr 1X ONCE IV Last administered on at 05:57; Start 04/28/18 at 06:15; Stop 04/28/18 at 07:14; Status DC Propofol 100 ml @ As Directed STK-MED ONCE IV ; Start 04/28/18 at 06:28; Stop at 06:30; Status DC Propofol 100 ml @ 0 mls/hr CONT PRN IV SEE PROTOCOL; Start 04/28/18 at 06:45 Midazolam HCl 100 ml @ 5 mls/hr CONT PRN IV SEE I/O RECORD Last administered on 04/28/18at 20:33; Start 04/28/18 at 07:30 Norepinephrine Bitartrate 250 ml @ 1.875 mls/ hr CONT PRN IV SEE I/O RECORD Last administered on 04/28/18at 11:15; Start 04/28/18 at 07:45 Aspirin (Children'S Aspirin) 81 mg DAILY PO Last administered on 04/30/18at 09: 11; Start 04/28/18 at 10:00 Carvedilol (Coreg) 3.125 mg BIDWMEALS PO Last administered on 04/30/18at 08:35; Start 04/28/18 at 17:00 EZETIMIBE (Zetia) 10 mg DAILY PO Last administered on 04/30/18at 09:10; Start at 10:00 Folic Acid (Folic Acid) 1 mg DAILY PO Last administered on 04/30/18 09:11; Start 04/28/18 at 10:00 Levetiracetam (Keppra) 500 mg BID PO Last administered on 04/29/18at 09:05; Start 04/28/18 at 10:00; Stop 04/29/18 at 17:28; Status DC Famotidine (Pepcid) 20 mg QHS PO Last administered on 04/28/18at 20:57; Start 04/28/18 at 21:00 Sodium Chloride 500 ml @ 500 mls/hr 1X ONCE IV Last administered on 04/28/18at 13:56; Start 04/28/18 at 14:00; Stop 04/28/18 at 14:59; Status DC Sodium Chloride 1,000 ml @ 60 mls/hr [id number] IV Last administered on at 23:50; Start 04/28/18 at 14:30 Lidocaine/ Epinephrine (LIDOCAINE 1%-EPI 1:100,000 Multi-Dose) 20 ml STK-MED ONCE .ROUTE ; Start 04/29/18 at 09:48; Stop 04/29/18 at 09:49; Status DC Lidocaine/ Epinephrine (LIDOCAINE 1%-EPI 1:100,000 Multi-Dose) 4 ml 1X ONCE INJ Last administered on 04/29/18at 10:21; Start 04/29/18 at 10:15; Stop at 10:16; Status DC Fentanyl Citrate (Fentanyl 2ml Vial) 25 mcg PRN Q2HR PRN IV MODERATE PAIN Last administered on 04/29/18at 10:31; Start 04/29/18 at 10:15 Fentanyl Citrate (Fentanyl 2ml Vial) 50 mcg PRN Q2HR PRN IV SEVERE PAIN; Start 04/29/18 at 10:15 Heparin Sodium (Porcine) (Heparin Sodium) 5,000 unit Q12H SQ Last administered on 04/29/18at 15:26; Start 04/29/18 at 14:00; Stop 04/30/18 at 00:23; Status DC Levetiracetam 500 mg/Dextrose 105 ml @ 420 mls/hr Q12HR IV Last administered on 04/29/18at 20:35; Start 04/29/18 at 21:00; Stop 04/30/18 at 07:58; Status DC Metoprolol Tartrate (Lopressor Vial) 5 mg PRN Q4HRS PRN IVP For SBP > 150 and/ or HR > 90; Start 04/29/18 at 17:30 Heparin Sodium (Porcine) (Heparin Sodium) 5,000 unit Q12H SQ Last administered on 04/30/18at 05:18; Start 04/30/18 at 06:00 Levetiracetam (Keppra) 500 mg BID PO Last administered on 04/30/18at 09:11; Start 04/30/18 at 09:00 Active Scripts Active Reported Zofran (Ondansetron Hcl) 8 Mg Tablet 1 Tab PO Q8HRS Zetia (Ezetimibe) 10 Mg Tablet 1 Tab PO DAILY Folic Acid 1 Mg Tablet 1 Tab PO DAILY Aspirin 81 Mg Tab.chew 1 Tab PO DAILY Carvedilol (Carvedilol) 3.125 Mg Tablet 1 Tab PO BID Levetiracetam 500 Mg Tablet 1 Tab PO BID Vitals/I & O Vital Sign - Last 24 Hours 04/29/18 04/29/18 04/29/18 04/29/18 14:00 15:00 16:00 16:00 Temp 98.5 98.5 Pulse 119 108 103 Resp 18 16 16 B/P (MAP) 140/87 (104) 123/74 (90) 111/72 (85) Pulse Ox 99 94 98 O2 Delivery Nasal Cannula Nasal Cannula Nasal Cannula Nasal Cannula O2 Flow Rate 3.0 2.0 2.0 2.0 04/29/18 04/29/18 04/29/18 04/29/18 17:00 17:00 18:00 19:00 Pulse 104 105 102 103 Resp 16 16 16 B/P (MAP) 105/69 105/69 (81) 105/66 (79) 102/70 (81) Pulse Ox 92 97 97 O2 Delivery Room Air Room Air Room Air 04/29/18 04/29/18 04/29/18 04/29/18 20:00 20:00 21:00 22:00 Temp 98.4 98.4 Pulse 100 100 100 Resp 14 16 16 B/P (MAP) 108/75 (86) 112/74 (87) 122/79 (93) Pulse Ox 98 97 97 O2 Delivery Room Air Room Air Room Air Room Air 04/29/18 04/29/18 04/30/18 04/30/18 23:00 23:50 00:00 01:01 Temp 98.0 98.0 Pulse 92 90 89 Resp 12 12 12 B/P (MAP) 112/68 (83) 98/46 (63) 101/61 (74) Pulse Ox 97 98 97 O2 Delivery Room Air Room Air Room Air Room Air 04/30/18 04/30/18 04/30/18 04/30/18 02:00 03:00 04:00 04:00 Temp 98.0 98.0 Pulse 92 92 94 Resp 12 12 14 B/P (MAP) 108/68 (81) 113/76 (88) 111/76 (88) Pulse Ox 99 99 97 O2 Delivery Room Air Room Air Room Air Room Air 04/30/18 04/30/18 04/30/18 04/30/18 05:00 06:00 07:00 08:00 Pulse 92 90 91 Resp 12 12 14 B/P (MAP) 119/81 (94) 131/76 (94) 122/80 (94) Pulse Ox 99 99 98 O2 Delivery Room Air Room Air Room Air Room Air 04/30/18 04/30/18 04/30/18 04/30/18 08:00 08:35 09:00 10:00 Temp 98.0 98.0 Pulse 102 96 102 103 Resp 16 16 18 B/P (MAP) 134/86 (102) 134/86 144/95 (111) 129/77 (94) Pulse Ox 99 98 99 O2 Delivery Room Air Room Air Room Air 04/30/18 04/30/18 11:00 12:00 Temp 97.7 97.7 Pulse 93 90 Resp 16 18 B/P (MAP) 119/73 (88) 134/78 (96) Pulse Ox 98 98 O2 Delivery Room Air Room Air Intake and Output 04/29/18 04/29/18 04/30/18 15:01 23:01 07:01 Intake Total 250 ml 676.07 ml Output Total 860 ml 775 ml 545 ml Balance -610 ml -98.93 ml -545 ml ARLYN MATTSON MD Apr 30, 2018 13:38
--- NOTE | 2018-04-30 13:39 | PDOC ---
PROGRESS NOTES Chief Complaint Chief Complaint 1. Acute respiratory failure secondary; multifactorial given PNA and AECOPD. s/ p intubation. Heparin gtt initiated due to concern for possible PE. Echo ordered to r/o RV dilation. 2. Mild acute on chronic systolic HF with NICM; LVEF 20-25% 3. NSTEMI; initial trop 0.15. Most probably type II demand ischemia 4. Accelerated hypertension, POA. Now with hypotension requiring pressor support. 5. CAD; non-obstructive. 06/2017 LHC 30% to LAD lesion, LCx no occlusion, ramus occluded, RCA with 30-40% proximal lesion. was treated medically at that time 6. Colon CA with liver metastasis 7. CKD 8. Hyperlipidemia; LDL 78 02/2018 9. Slight hematuria 10. Hx of seizures 11. Hx of substance abuse Plan: Continue with supportive measures. Follow recommendations from critical career professional Follow recommendations from cardiology follow ECHO results Monitor hemodynamics Poor prognosis given his multiple comorbidities and underlying malignancy with liver metastases History of Present Illness History of Present Illness Patient sitting in chair in no apparent distress. Good appetite and has been able to eat his and titrated this morning. No complaints during my interview in no acute distress Vitals Vitals Vital Signs Date Time Temp Pulse Resp B/P (MAP) Pulse Ox O2 Delivery O2 Flow Rate FiO2 04/30/18 12:00 97.7 90 18 134/78 (96) 98 Room Air 97.7 04/29/18 16:00 2.0 Physical Exam General: Other (intubated/sedated ) Heart: Regular rate, Other (distant heart tones) Lungs: Clear Abdomen: Soft Extremities: Normal pulses, Other (trace bilateral LE edema ) Skin: No significant lesion Labs LABS Laboratory Tests Test 04/30/18 03:05 Sodium Level 142 mmol/L (136-145) Potassium Level 4.0 mmol/L (3.5-5.1) Chloride Level 108 mmol/L (98-107) Carbon Dioxide Level 26 mmol/L (21-32) Anion Gap 8 (6-14) Blood Urea Nitrogen 13 mg/dL (8-26) Creatinine 1.7 mg/dL (0.7-1.3) Estimated GFR (Cockcroft-Gault) 48.9 Glucose Level 81 mg/dL (70-99) Calcium Level 8.3 mg/dL (8.5-10.1) Magnesium Level 2.0 mg/dL (1.8-2.4) Assessment and Plan Assessmemt and Plan Problems Medical Problems: (1) Acute congestive heart failure Status: Acute (2) Acute respiratory failure with hypoxia and hypercapnia Status: Acute (3) Elevated troponin Status: Acute Comment Review of Relevant I have reviewed the following items gala (where applicable) has been applied. Labs Laboratory Tests Test 04/29/18 00:15 04/29/18 04:15 04/29/18 06:09 04/29/18 08:10 Glucose (Fingerstick) 121 mg/dL (70-99) 114 mg/dL (70-99) White Blood Count 5.5 x10^3/uL (4.0-11.0) Red Blood Count 4.25 x10^6/uL (4.30-5.70) Hemoglobin 13.1 g/dL (13.0-17.5) Hematocrit 38.1 % (39.0-53.0) Mean Corpuscular Volume 90 fL (79-100) Mean Corpuscular Hemoglobin 31 pg (25-35) Mean Corpuscular Hemoglobin Concent 34 g/dL (31-37) Red Cell Distribution Width 14.6 % (11.5-14.5) Platelet Count 179 x10^3/uL (140-400) Sodium Level 142 mmol/L (136-145) Potassium Level 4.1 mmol/L (3.5-5.1) Chloride Level 107 mmol/L (98-107) Carbon Dioxide Level 25 mmol/L (21-32) Anion Gap 10 (6-14) Blood Urea Nitrogen 17 mg/dL (8-26) Creatinine 2.0 mg/dL (0.7-1.3) Estimated GFR (Cockcroft-Gault) 40.5 Glucose Level 134 mg/dL (70-99) Calcium Level 8.1 mg/dL (8.5-10.1) Troponin I Quantitative 0.699 ng/mL (0.000-0.055) O2 Saturation 98 % (92-99) Arterial Blood pH 7.48 (7.35-7.45) Arterial Blood pCO2 at Patient Temp 31 mmHg (35-46) Arterial Blood pO2 at Patient Temp 144 mmHg (65-108) Arterial Blood HCO3 22 mmol/L (21-28) Arterial Blood Base Excess -1 mmol/L (-3-3) FiO2 40% Test 04/29/18 13:30 04/30/18 03:05 O2 Saturation 96 % (92-99) Arterial Blood pH 7.45 (7.35-7.45) Arterial Blood pCO2 at Patient Temp 36 mmHg (35-46) Arterial Blood pO2 at Patient Temp 79 mmHg (65-108) Arterial Blood HCO3 24 mmol/L (21-28) Arterial Blood Base Excess 1 mmol/L (-3-3) FiO2 35 Sodium Level 142 mmol/L (136-145) Potassium Level 4.0 mmol/L (3.5-5.1) Chloride Level 108 mmol/L (98-107) Carbon Dioxide Level 26 mmol/L (21-32) Anion Gap 8 (6-14) Blood Urea Nitrogen 13 mg/dL (8-26) Creatinine 1.7 mg/dL (0.7-1.3) Estimated GFR (Cockcroft-Gault) 48.9 Glucose Level 81 mg/dL (70-99) Calcium Level 8.3 mg/dL (8.5-10.1) Magnesium Level 2.0 mg/dL (1.8-2.4) Laboratory Tests Test 04/30/18 03:05 Sodium Level 142 mmol/L (136-145) Potassium Level 4.0 mmol/L (3.5-5.1) Chloride Level 108 mmol/L (98-107) Carbon Dioxide Level 26 mmol/L (21-32) Anion Gap 8 (6-14) Blood Urea Nitrogen 13 mg/dL (8-26) Creatinine 1.7 mg/dL (0.7-1.3) Estimated GFR (Cockcroft-Gault) 48.9 Glucose Level 81 mg/dL (70-99) Calcium Level 8.3 mg/dL (8.5-10.1) Magnesium Level 2.0 mg/dL (1.8-2.4) Microbiology 04/28/18 Blood Culture - Preliminary, Resulted NO GROWTH AFTER 2 DAYS Medications Current Medications Albuterol/ Ipratropium (Duoneb) 3 ml 1X ONCE NEB Last administered on at 02:12; Start 04/28/18 at 02:30; Stop 04/28/18 at 02:31; Status DC Furosemide (Lasix) 40 mg 1X ONCE IVP Last administered on 04/28/18at 03:24; Start 04/28/18 at 03:30; Stop 04/28/18 at 03:31; Status DC Piperacillin Sod/ Tazobactam Sod (Zosyn Per Pharmacy) 1 each PRN DAILY PRN MC SEE COMMENTS; Start 04/28/18 at 03:15 Piperacillin Sod/ Tazobactam Sod 3.375 gm/Sodium Chloride 50 ml @ 100 mls/hr Q6HRS IV Last administered on 04/30/18at 11:42; Start 04/28/18 at 03:30 Propofol 50 ml @ As Directed STK-MED ONCE IV ; Start 04/28/18 at 04:24; Stop 04/28 at 04:26; Status DC Heparin Sodium (Porcine) (Heparin Sodium) 7,250 unit 1X ONCE IV Last administered on 04/28/18at 04:53; Start 04/28/18 at 05:00; Stop 04/28/18 at 14:08; Status DC Heparin Sodium/ Dextrose 500 ml @ 0 mls/hr CONT PRN IV SEE I/O RECORD Last administered on 04/28/18at 05:04; Start 04/28/18 at 04:30; Stop 04/28/18 at 14:08; Status DC Heparin Sodium (Porcine) (Heparin Sodium) 2,700 unit PRN Q6HRS PRN IV FOR UFH LEVEL LESS THAN 0.2; Start 04/28/18 at 04:30; Stop 04/28/18 at 14:08; Status DC Heparin Sodium (Porcine) (Heparin Sodium) 1,350 unit PRN Q6HRS PRN IV FOR UFH LEVEL 0.2 - 0.29; Start 04/28/18 at 04:30; Stop 04/28/18 at 14:08; Status DC Info (Anti-Coagulation Monitoring By Pharmacy) 1 each PRN DAILY PRN MC SEE COMMENTS Last administered on 04/28/18at 05:49; Start 04/28/18 at 04:45; Stop 04/30 at 08:10; Status DC Levofloxacin/ Dextrose 100 ml @ 100 mls/hr 1X ONCE IV Last administered on 04/28/18at 05:04; Start 04/28/18 at 05:00; Stop 04/28/18 at 05:59; Status DC Midazolam HCl (Versed) 5 mg 1X ONCE IV Last administered on 04/28/18at 04:57; Start 04/28/18 at 05:15; Stop 04/28/18 at 05:16; Status DC Propofol 50 ml @ 1.361 mls/ hr 1X ONCE IV Last administered on 04/28/18at 04:46 ; Start 04/28/18 at 05:15; Stop 04/29/18 at 17:59; Status DC Succinylcholine Chloride (Anectine) 200 mg STK-MED ONCE .ROUTE ; Start 04/28/18 at 05:11; Stop 04/28/18 at 05:13; Status DC Succinylcholine Chloride (Anectine) 100 mg 1X ONCE IV Last administered on 04/28at 04:37; Start 04/28/18 at 06:00; Stop 04/28/18 at 06:01; Status DC Propofol (Diprivan) 100 mg 1X ONCE IV Last administered on 04/28/18at 04:36; Start 04/28/18 at 06:00; Stop 04/28/18 at 06:01; Status DC Albuterol/ Ipratropium (Duoneb) 3 ml 1X ONCE NEB Last administered on at 05:42; Start 04/28/18 at 06:00; Stop 04/28/18 at 06:01; Status DC Midazolam HCl (Versed) 5 mg 1X ONCE IV Last administered on 04/28/18at 05:57; Start 04/28/18 at 06:30; Stop 04/28/18 at 06:31; Status DC Sodium Chloride 1,000 ml @ 1,000 mls/hr 1X ONCE IV Last administered on at 05:57; Start 04/28/18 at 06:15; Stop 04/28/18 at 07:14; Status DC Propofol 100 ml @ As Directed STK-MED ONCE IV ; Start 04/28/18 at 06:28; Stop at 06:30; Status DC Propofol 100 ml @ 0 mls/hr CONT PRN IV SEE PROTOCOL; Start 04/28/18 at 06:45 Midazolam HCl 100 ml @ 5 mls/hr CONT PRN IV SEE I/O RECORD Last administered on 04/28/18at 20:33; Start 04/28/18 at 07:30 Norepinephrine Bitartrate 250 ml @ 1.875 mls/ hr CONT PRN IV SEE I/O RECORD Last administered on 04/28/18 11:15; Start 04/28/18 at 07:45 Aspirin (Children'S Aspirin) 81 mg DAILY PO Last administered on 04/30/18at 09: 11; Start 04/28/18 at 10:00 Carvedilol (Coreg) 3.125 mg BIDWMEALS PO Last administered on 04/30/18at 08:35; Start 04/28/18 at 17:00 EZETIMIBE (Zetia) 10 mg DAILY PO Last administered on 04/30/18 09:10; Start at 10:00 Folic Acid (Folic Acid) 1 mg DAILY PO Last administered on 04/30/18 09:11; Start 04/28/18 at 10:00 Levetiracetam (Keppra) 500 mg BID PO Last administered on 04/29/18at 09:05; Start 04/28/18 at 10:00; Stop 04/29/18 at 17:28; Status DC Famotidine (Pepcid) 20 mg QHS PO Last administered on 04/28/18at 20:57; Start 04/28/18 at 21:00 Sodium Chloride 500 ml @ 500 mls/hr 1X ONCE IV Last administered on 04/28/18at 13:56; Start 04/28/18 at 14:00; Stop 04/28/18 at 14:59; Status DC Sodium Chloride 1,000 ml @ 60 mls/hr [id number] IV Last administered on at 23:50; Start 04/28/18 at 14:30 Lidocaine/ Epinephrine (LIDOCAINE 1%-EPI 1:100,000 Multi-Dose) 20 ml STK-MED ONCE .ROUTE ; Start 04/29/18 at 09:48; Stop 04/29/18 at 09:49; Status DC Lidocaine/ Epinephrine (LIDOCAINE 1%-EPI 1:100,000 Multi-Dose) 4 ml 1X ONCE INJ Last administered on 04/29/18at 10:21; Start 04/29/18 at 10:15; Stop at 10:16; Status DC Fentanyl Citrate (Fentanyl 2ml Vial) 25 mcg PRN Q2HR PRN IV MODERATE PAIN Last administered on 1/10/19at 10:31; Start 04/29/18 at 10:15 Fentanyl Citrate (Fentanyl 2ml Vial) 50 mcg PRN Q2HR PRN IV SEVERE PAIN; Start 04/29/18 at 10:15 Heparin Sodium (Porcine) (Heparin Sodium) 5,000 unit Q12H SQ Last administered on 04/29/18at 15:26; Start 04/29/18 at 14:00; Stop 04/30/18 at 00:23; Status DC Levetiracetam 500 mg/Dextrose 105 ml @ 420 mls/hr Q12HR IV Last administered on 04/29/18at 20:35; Start 04/29/18 at 21:00; Stop 04/30/18 at 07:58; Status DC Metoprolol Tartrate (Lopressor Vial) 5 mg PRN Q4HRS PRN IVP For SBP > 150 and/ or HR > 90; Start 04/29/18 at 17:30 Heparin Sodium (Porcine) (Heparin Sodium) 5,000 unit Q12H SQ Last administered on 04/30/18at 05:18; Start 04/30/18 at 06:00 Levetiracetam (Keppra) 500 mg BID PO Last administered on 04/30/18at 09:11; Start 04/30/18 at 09:00 Active Scripts Active Reported Zofran (Ondansetron Hcl) 8 Mg Tablet 1 Tab PO Q8HRS Zetia (Ezetimibe) 10 Mg Tablet 1 Tab PO DAILY Folic Acid 1 Mg Tablet 1 Tab PO DAILY Aspirin 81 Mg Tab.chew 1 Tab PO DAILY Carvedilol (Carvedilol) 3.125 Mg Tablet 1 Tab PO BID Levetiracetam 500 Mg Tablet 1 Tab PO BID Vitals/I & O Vital Sign - Last 24 Hours 04/29/18 04/29/18 04/29/18 04/29/18 14:00 15:00 16:00 16:00 Temp 98.5 98.5 Pulse 119 108 103 Resp 18 16 16 B/P (MAP) 140/87 (104) 123/74 (90) 111/72 (85) Pulse Ox 99 94 98 O2 Delivery Nasal Cannula Nasal Cannula Nasal Cannula Nasal Cannula O2 Flow Rate 3.0 2.0 2.0 2.0 04/29/18 04/29/18 04/29/1804/29/19 17:00 17:00 18:00 19:00 Pulse 104 105 102 103 Resp 16 16 16 B/P (MAP) 105/69 105/69 (81) 105/66 (79) 102/70 (81) Pulse Ox 92 97 97 O2 Delivery Room Air Room Air Room Air 04/29/18 04/29/18 04/29/18 04/29/18 20:00 20:00 21:00 22:00 Temp 98.4 98.4 Pulse 100 100 100 Resp 14 16 16 B/P (MAP) 108/75 (86) 112/74 (87) 122/79 (93) Pulse Ox 98 97 97 O2 Delivery Room Air Room Air Room Air Room Air 04/29/18 04/29/18 04/30/18 04/30/18 23:00 23:50 00:00 01:01 Temp 98.0 98.0 Pulse 92 90 89 Resp 12 12 12 B/P (MAP) 112/68 (83) 98/46 (63) 101/61 (74) Pulse Ox 97 98 97 O2 Delivery Room Air Room Air Room Air Room Air 04/30/18 04/30/18 04/30/18 04/30/18 02:00 03:00 04:00 04:00 Temp 98.0 98.0 Pulse 92 92 94 Resp 12 12 14 B/P (MAP) 108/68 (81) 113/76 (88) 111/76 (88) Pulse Ox 99 99 97 O2 Delivery Room Air Room Air Room Air Room Air 04/30/18 04/30/18 04/30/18 04/30/18 05:00 06:00 07:00 08:00 Pulse 92 90 91 Resp 12 12 14 B/P (MAP) 119/81 (94) 131/76 (94) 122/80 (94) Pulse Ox 99 99 98 O2 Delivery Room Air Room Air Room Air Room Air 04/30/18 04/30/18 04/30/18 04/30/18 08:00 08:35 09:00 10:00 Temp 98.0 98.0 Pulse 102 96 102 103 Resp 16 16 18 B/P (MAP) 134/86 (102) 134/86 144/95 (111) 129/77 (94) Pulse Ox 99 98 99 O2 Delivery Room Air Room Air Room Air 04/30/18 04/30/18 11:00 12:00 Temp 97.7 97.7 Pulse 93 90 Resp 16 18 B/P (MAP) 119/73 (88) 134/78 (96) Pulse Ox 98 98 O2 Delivery Room Air Room Air Intake and Output 04/29/18 04/29/18 04/30/18 15:01 23:01 07:01 Intake Total 250 ml 676.07 ml Output Total 860 ml 775 ml 545 ml Balance -610 ml -98.93 ml -545 ml ARLYN MATTSON MD Apr 30, 2018 13:39
--- NOTE | 2018-04-30 14:06 | RAD ---
Removal of right internal jugular PowerPort at the bedside 04/30/2018 Indication: For catheter malposition, coiled in the jugular vein extending cephalad.. Patient critically ill. Discussion: The risks and benefits of the procedure were discussed the patient's community engagement representative. Informed consent was obtained. A timeout procedure was performed. The right chest was prepped and draped using sterile barrier technique. 1% lidocaine was administered for local anesthesia. A small incision was made overlying the port reservoir. Sharp and blunt dissection was used to free the reservoir. The catheter and reservoir were removed intact. The wound was closed using 4-0 Vicryl suture. Sterile dressings were applied. No immediate complications were identified. Impression: Removal of right internal jugular PowerPort
--- NOTE | 2018-04-30 15:55 | NUR ---
Pt was transferred to room 675 per wheelchair.
[2018-04-30] MEDS: FAMOTIDINE 20 MG TABLET. PO SCH (21:17)
[2018-04-30] MEDS: IV NORMAL SALINE 1000ML BAG 1,000 ML IV SCH (21:19)
[2018-05-01 03:59] VITALS: BP 105/65
[2018-05-01 04:49] LABS: BASO % 1 % (0-3); EOS # 0.2 x10^3/uL (0.0-0.7); EOS % 3 % (0-3); HEMATOCRIT 38.4 % (39.0-53.0); HEMOGLOBIN 12.6 g/dL (13.0-17.5); LYMPH # 2.1 x10^3/uL (1.0-4.8); LYMPH % 41 % (24-48); MEAN CORPUSCULAR HEMOGLOBIN 30 pg (25-35); MEAN CORPUSCULAR HGB CONC 33 g/dL (31-37); MEAN CORPUSCULAR VOLUME 91 fL (79-100); MONO # 1.1 x10^3/uL (0.0-1.1); MONO % 20 % (0-9); NEUT # 1.8 x10^3uL (1.8-7.7); NEUT % 34 % (31-73); PLATELET COUNT 180 x10^3/uL (140-400); RED BLOOD COUNT 4.22 x10^6/uL (4.30-5.70); RED CELL DISTRIBUTION WIDTH 14.9 % (11.5-14.5); WHITE BLOOD COUNT 5.2 x10^3/uL (4.0-11.0)
[2018-05-01 05:03] LABS: CALCIUM 8.7 mg/dL (8.5-10.1); CREATININE 1.8 mg/dL (0.7-1.3); GFR 45.8; POTASSIUM 3.8 mmol/L (3.5-5.1)
[2018-05-01] MEDS: PIPERACILLIN/TAZOBACTAM 3.375 GM in IV NORMAL SALINE 50ML 50 ML IV SCH ×2 (06:41→12:00)
[2018-05-01] MEDS: HEPARIN for SUB-Q USE 5,000 UNIT/ML VIAL. SQ SCH ×2 (06:45→17:06)
[2018-05-01 07:35] VITALS: BP 136/93
--- NOTE | 2018-05-01 08:09 | PDOC ---
PROGRESS NOTES Chief Complaint Chief Complaint 1. Acute respiratory failure secondary; multifactorial given PNA and AECOPD. s/ p intubation. Heparin gtt initiated due to concern for possible PE. Echo ordered to r/o RV dilation. 2. Mild acute on chronic systolic HF with NICM; LVEF 20-25% 3. NSTEMI; initial trop 0.15. Most probably type II demand ischemia 4. Accelerated hypertension, POA. Now with hypotension requiring pressor support. 5. CAD; non-obstructive. 06/2017 LHC 30% to LAD lesion, LCx no occlusion, ramus occluded, RCA with 30-40% proximal lesion. was treated medically at that time 6. Colon CA with liver metastasis 7. CKD 8. Hyperlipidemia; LDL 78 02/2018 9. Slight hematuria 10. Hx of seizures 11. Hx of substance abuse Plan: Continue with supportive measures. Follow recommendations from critical care transport nurse Will d/w oncology if vanco ppx should be started while getting treated for pneumonia Follow recommendations from cardiology follow ECHO results Monitor hemodynamics Poor prognosis given his multiple comorbidities and underlying malignancy with liver metastases History of Present Illness History of Present Illness 68yo M w/ PMHx colon ca recently starting chemo for mets with planned surgery for 2 liver mets who is still recovering from prolonged c. diff requiring vancomycin taper, now being treated for pneumonia initially requiring intubation , now s/p extubation, out of ICU, transferred to floor yesterday. Port-a-cath removal 04/29/18 after notably routing into right jugular vein. Patient sitting in chair in no apparent distress. Good appetite and has been able to eat this morning. No complaints during my interview in no acute distress. He is asking about when his port will be replaced and when he can reinitiate chemo and he is curious if he should still be on vanco while on antibiotics. Vitals Vitals Vital Signs Date Time Temp Pulse Resp B/P (MAP) Pulse Ox O2 Delivery O2 Flow Rate FiO2 05/01/18 07:35 97.9 95 20 136/93 (107) 96 Room Air 97.9 Physical Exam General: Other (intubated/sedated ) Heart: Regular rate, Other (distant heart tones) Lungs: Clear Abdomen: Soft Extremities: Normal pulses, Other (trace bilateral LE edema ) Skin: No significant lesion Labs LABS Laboratory Tests Test 05/01/18 04:15 White Blood Count 5.2 x10^3/uL (4.0-11.0) Red Blood Count 4.22 x10^6/uL (4.30-5.70) Hemoglobin 12.6 g/dL (13.0-17.5) Hematocrit 38.4 % (39.0-53.0) Mean Corpuscular Volume 91 fL (79-100) Mean Corpuscular Hemoglobin 30 pg (25-35) Mean Corpuscular Hemoglobin Concent 33 g/dL (31-37) Red Cell Distribution Width 14.9 % (11.5-14.5) Platelet Count 180 x10^3/uL (140-400) Neutrophils (%) (Auto) 34 % (31-73) Lymphocytes (%) (Auto) 41 % (24-48) Monocytes (%) (Auto) 20 % (0-9) Eosinophils (%) (Auto) 3 % (0-3) Basophils (%) (Auto) 1 % (0-3) Neutrophils # (Auto) 1.8 x10^3uL (1.8-7.7) Lymphocytes # (Auto) 2.1 x10^3/uL (1.0-4.8) Monocytes # (Auto) 1.1 x10^3/uL (0.0-1.1) Eosinophils # (Auto) 0.2 x10^3/uL (0.0-0.7) Basophils # (Auto) 0.0 x10^3/uL (0.0-0.2) Sodium Level 145 mmol/L (136-145) Potassium Level 3.8 mmol/L (3.5-5.1) Chloride Level 111 mmol/L (98-107) Carbon Dioxide Level 26 mmol/L (21-32) Anion Gap 8 (6-14) Blood Urea Nitrogen 11 mg/dL (8-26) Creatinine 1.8 mg/dL (0.7-1.3) Estimated GFR (Cockcroft-Gault) 45.8 Glucose Level 90 mg/dL (70-99) Calcium Level 8.7 mg/dL (8.5-10.1) Assessment and Plan Assessmemt and Plan Problems Medical Problems: (1) Acute congestive heart failure Status: Acute (2) Acute respiratory failure with hypoxia and hypercapnia Status: Acute (3) Elevated troponin Status: Acute Comment Review of Relevant I have reviewed the following items gala (where applicable) has been applied. Labs Laboratory Tests Test 04/29/18 08:10 04/29/18 13:30 04/29/18 14:50 04/30/18 03:05 O2 Saturation 98 % (92-99) 96 % (92-99) Arterial Blood pH 7.48 (7.35-7.45) 7.45 (7.35-7.45) Arterial Blood pCO2 at Patient Temp 31 mmHg (35-46) 36 mmHg (35-46) Arterial Blood pO2 at Patient Temp 144 mmHg (65-108) 79 mmHg (65-108) Arterial Blood HCO3 22 mmol/L (21-28) 24 mmol/L (21-28) Arterial Blood Base Excess -1 mmol/L (-3-3) 1 mmol/L (-3-3) FiO2 40% 35 Clostridium difficile Toxin B Gene Negative (Negative) Sodium Level 142 mmol/L (136-145) Potassium Level 4.0 mmol/L (3.5-5.1) Chloride Level 108 mmol/L (98-107) Carbon Dioxide Level 26 mmol/L (21-32) Anion Gap 8 (6-14) Blood Urea Nitrogen 13 mg/dL (8-26) Creatinine 1.7 mg/dL (0.7-1.3) Estimated GFR (Cockcroft-Gault) 48.9 Glucose Level 81 mg/dL (70-99) Calcium Level 8.3 mg/dL (8.5-10.1) Magnesium Level 2.0 mg/dL (1.8-2.4) Test 05/01/18 04:15 White Blood Count 5.2 x10^3/uL (4.0-11.0) Red Blood Count 4.22 x10^6/uL (4.30-5.70) Hemoglobin 12.6 g/dL (13.0-17.5) Hematocrit 38.4 % (39.0-53.0) Mean Corpuscular Volume 91 fL (79-100) Mean Corpuscular Hemoglobin 30 pg (25-35) Mean Corpuscular Hemoglobin Concent 33 g/dL (31-37) Red Cell Distribution Width 14.9 % (11.5-14.5) Platelet Count 180 x10^3/uL (140-400) Neutrophils (%) (Auto) 34 % (31-73) Lymphocytes (%) (Auto) 41 % (24-48) Monocytes (%) (Auto) 20 % (0-9) Eosinophils (%) (Auto) 3 % (0-3) Basophils (%) (Auto) 1 % (0-3) Neutrophils # (Auto) 1.8 x10^3uL (1.8-7.7) Lymphocytes # (Auto) 2.1 x10^3/uL (1.0-4.8) Monocytes # (Auto) 1.1 x10^3/uL (0.0-1.1) Eosinophils # (Auto) 0.2 x10^3/uL (0.0-0.7) Basophils # (Auto) 0.0 x10^3/uL (0.0-0.2) Sodium Level 145 mmol/L (136-145) Potassium Level 3.8 mmol/L (3.5-5.1) Chloride Level 111 mmol/L (98-107) Carbon Dioxide Level 26 mmol/L (21-32) Anion Gap 8 (6-14) Blood Urea Nitrogen 11 mg/dL (8-26) Creatinine 1.8 mg/dL (0.7-1.3) Estimated GFR (Cockcroft-Gault) 45.8 Glucose Level 90 mg/dL (70-99) Calcium Level 8.7 mg/dL (8.5-10.1) Laboratory Tests Test 05/01/18 04:15 White Blood Count 5.2 x10^3/uL (4.0-11.0) Red Blood Count 4.22 x10^6/uL (4.30-5.70) Hemoglobin 12.6 g/dL (13.0-17.5) Hematocrit 38.4 % (39.0-53.0) Mean Corpuscular Volume 91 fL (79-100) Mean Corpuscular Hemoglobin 30 pg (25-35) Mean Corpuscular Hemoglobin Concent 33 g/dL (31-37) Red Cell Distribution Width 14.9 % (11.5-14.5) Platelet Count 180 x10^3/uL (140-400) Neutrophils (%) (Auto) 34 % (31-73) Lymphocytes (%) (Auto) 41 % (24-48) Monocytes (%) (Auto) 20 % (0-9) Eosinophils (%) (Auto) 3 % (0-3) Basophils (%) (Auto) 1 % (0-3) Neutrophils # (Auto) 1.8 x10^3uL (1.8-7.7) Lymphocytes # (Auto) 2.1 x10^3/uL (1.0-4.8) Monocytes # (Auto) 1.1 x10^3/uL (0.0-1.1) Eosinophils # (Auto) 0.2 x10^3/uL (0.0-0.7) Basophils # (Auto) 0.0 x10^3/uL (0.0-0.2) Sodium Level 145 mmol/L (136-145) Potassium Level 3.8 mmol/L (3.5-5.1) Chloride Level 111 mmol/L (98-107) Carbon Dioxide Level 26 mmol/L (21-32) Anion Gap 8 (6-14) Blood Urea Nitrogen 11 mg/dL (8-26) Creatinine 1.8 mg/dL (0.7-1.3) Estimated GFR (Cockcroft-Gault) 45.8 Glucose Level 90 mg/dL (70-99) Calcium Level 8.7 mg/dL (8.5-10.1) Microbiology 04/28/18 Blood Culture - Preliminary, Resulted NO GROWTH AFTER 3 DAYS Medications Current Medications Albuterol/ Ipratropium (Duoneb) 3 ml 1X ONCE NEB Last administered on at 02:12; Start 04/28/18 at 02:30; Stop 04/28/18 at 02:31; Status DC Furosemide (Lasix) 40 mg 1X ONCE IVP Last administered on 04/28/18at 03:24; Start 04/28/18 at 03:30; Stop 04/28/18 at 03:31; Status DC Piperacillin Sod/ Tazobactam Sod (Zosyn Per Pharmacy) 1 each PRN DAILY PRN MC SEE COMMENTS; Start 04/28/18 at 03:15 Piperacillin Sod/ Tazobactam Sod 3.375 gm/Sodium Chloride 50 ml @ 100 mls/hr Q6HRS IV Last administered on 05/01/18at 06:41; Start 04/28/18 at 03:30 Propofol 50 ml @ As Directed STK-MED ONCE IV ; Start 04/28/18 at 04:24; Stop 04/28 at 04:26; Status DC Heparin Sodium (Porcine) (Heparin Sodium) 7,250 unit 1X ONCE IV Last administered on 04/28/18at 04:53; Start 04/28/18 at 05:00; Stop 04/28/18 at 14:08; Status DC Heparin Sodium/ Dextrose 500 ml @ 0 mls/hr CONT PRN IV SEE I/O RECORD Last administered on 04/28/18at 05:04; Start 04/28/18 at 04:30; Stop 04/28/18 at 14:08; Status DC Heparin Sodium (Porcine) (Heparin Sodium) 2,700 unit PRN Q6HRS PRN IV FOR UFH LEVEL LESS THAN 0.2; Start 04/28/18 at 04:30; Stop 04/28/18 at 14:08; Status DC Heparin Sodium (Porcine) (Heparin Sodium) 1,350 unit PRN Q6HRS PRN IV FOR UFH LEVEL 0.2 - 0.29; Start 04/28/18 at 04:30; Stop 04/28/18 at 14:08; Status DC Info (Anti-Coagulation Monitoring By Pharmacy) 1 each PRN DAILY PRN MC SEE COMMENTS Last administered on 04/28/18at 05:49; Start 04/28/18 at 04:45; Stop 04/30 at 08:10; Status DC Levofloxacin/ Dextrose 100 ml @ 100 mls/hr 1X ONCE IV Last administered on 04/28/18at 05:04; Start 04/28/18 at 05:00; Stop 04/28/18 at 05:59; Status DC Midazolam HCl (Versed) 5 mg 1X ONCE IV Last administered on 04/28/18at 04:57; Start 04/28/18 at 05:15; Stop 04/28/18 at 05:16; Status DC Propofol 50 ml @ 1.361 mls/ hr 1X ONCE IV Last administered on 04/28/18at 04:46 ; Start 04/28/18 at 05:15; Stop 04/29/18 at 17:59; Status DC Succinylcholine Chloride (Anectine) 200 mg STK-MED ONCE .ROUTE ; Start 04/28/18 at 05:11; Stop 04/28/18 at 05:13; Status DC Succinylcholine Chloride (Anectine) 100 mg 1X ONCE IV Last administered on 04/28at 04:37; Start 04/28/18 at 06:00; Stop 04/28/18 at 06:01; Status DC Propofol (Diprivan) 100 mg 1X ONCE IV Last administered on 04/28/18at 04:36; Start 04/28/18 at 06:00; Stop 04/28/18 at 06:01; Status DC Albuterol/ Ipratropium (Duoneb) 3 ml 1X ONCE NEB Last administered on at 05:42; Start 04/28/18 at 06:00; Stop 04/28/18 at 06:01; Status DC Midazolam HCl (Versed) 5 mg 1X ONCE IV Last administered on 04/28/18at 05:57; Start 04/28/18 at 06:30; Stop 04/28/18 at 06:31; Status DC Sodium Chloride 1,000 ml @ 1,000 mls/hr 1X ONCE IV Last administered on at 05:57; Start 04/28/18 at 06:15; Stop 04/28/18 at 07:14; Status DC Propofol 100 ml @ As Directed STK-MED ONCE IV ; Start 04/28/18 at 06:28; Stop at 06:30; Status DC Propofol 100 ml @ 0 mls/hr CONT PRN IV SEE PROTOCOL; Start 04/28/18 at 06:45 Midazolam HCl 100 ml @ 5 mls/hr CONT PRN IV SEE I/O RECORD Last administered on 04/28/18at 20:33; Start 04/28/18 at 07:30 Norepinephrine Bitartrate 250 ml @ 1.875 mls/ hr CONT PRN IV SEE I/O RECORD Last administered on 04/28/18at 11:15; Start 04/28/18 at 07:45 Aspirin (Children'S Aspirin) 81 mg DAILY PO Last administered on 04/30/18at 09: 11; Start 04/28/18 at 10:00 Carvedilol (Coreg) 3.125 mg BIDWMEALS PO Last administered on 04/30/18at 17:00; Start 04/28/18 at 17:00 EZETIMIBE (Zetia) 10 mg DAILY PO Last administered on 04/30/18at 09:10; Start at 10:00 Folic Acid (Folic Acid) 1 mg DAILY PO Last administered on 04/30/18at 09:11; Start 04/28/18 at 10:00 Levetiracetam (Keppra) 500 mg BID PO Last administered on 04/29/18at 09:05; Start 04/28/18 at 10:00; Stop 04/29/18 at 17:28; Status DC Famotidine (Pepcid) 20 mg QHS PO Last administered on 04/30/18at 21:17; Start at 21:00 Sodium Chloride 500 ml @ 500 mls/hr 1X ONCE IV Last administered on 04/28/18at 13:56; Start 04/28/18 at 14:00; Stop 04/28/18 at 14:59; Status DC Sodium Chloride 1,000 ml @ 60 mls/hr [id number] IV Last administered on at 21:19; Start 04/28/18 at 14:30 Lidocaine/ Epinephrine (LIDOCAINE 1%-EPI 1:100,000 Multi-Dose) 20 ml STK-MED ONCE .ROUTE ; Start 04/29/18 at 09:48; Stop 04/29/18 at 09:49; Status DC Lidocaine/ Epinephrine (LIDOCAINE 1%-EPI 1:100,000 Multi-Dose) 4 ml 1X ONCE INJ Last administered on 04/29/18at 10:21; Start 04/29/18 at 10:15; Stop at 10:16; Status DC Fentanyl Citrate (Fentanyl 2ml Vial) 25 mcg PRN Q2HR PRN IV MODERATE PAIN Last administered on 04/29/18at 10:31; Start 04/29/18 at 10:15 Fentanyl Citrate (Fentanyl 2ml Vial) 50 mcg PRN Q2HR PRN IV SEVERE PAIN; Start 04/29/18 at 10:15 Heparin Sodium (Porcine) (Heparin Sodium) 5,000 unit Q12H SQ Last administered on 04/29/18at 15:26; Start 04/29/18 at 14:00; Stop 04/30/18 at 00:23; Status DC Levetiracetam 500 mg/Dextrose 105 ml @ 420 mls/hr Q12HR IV Last administered on 04/29/18at 20:35; Start 04/29/18 at 21:00; Stop 04/30/18 at 07:58; Status DC Metoprolol Tartrate (Lopressor Vial) 5 mg PRN Q4HRS PRN IVP For SBP > 150 and/ or HR > 90; Start 04/29/18 at 17:30 Heparin Sodium (Porcine) (Heparin Sodium) 5,000 unit Q12H SQ Last administered on 05/01/18at 06:45; Start 04/30/18 at 06:00 Levetiracetam (Keppra) 500 mg BID PO Last administered on 04/30/18at 21:17; Start 04/30/18 at 09:00 Active Scripts Active Reported Zofran (Ondansetron Hcl) 8 Mg Tablet 1 Tab PO Q8HRS Zetia (Ezetimibe) 10 Mg Tablet 1 Tab PO DAILY Folic Acid 1 Mg Tablet 1 Tab PO DAILY Aspirin 81 Mg Tab.chew 1 Tab PO DAILY Carvedilol (Carvedilol) 3.125 Mg Tablet 1 Tab PO BID Levetiracetam 500 Mg Tablet 1 Tab PO BID Vitals/I & O Vital Sign - Last 24 Hours 04/30/18 04/30/18 04/30/18 04/30/18 08:35 09:00 10:00 11:00 Pulse 96 102 103 93 Resp 16 18 16 B/P (MAP) 134/86 144/95 (111) 129/77 (94) 119/73 (88) Pulse Ox 98 99 98 O2 Delivery Room Air Room Air Room Air 04/30/18 04/30/18 04/30/18 04/30/18 12:00 15:00 17:00 19:48 Temp 97.7 97.8 98.4 97.7 97.8 98.4 Pulse 90 91 91 96 Resp 18 18 21 B/P (MAP) 134/78 (96) 136/82 (100) 136/82 111/76 (88) Pulse Ox 98 99 97 O2 Delivery Room Air Room Air Room Air 04/30/18 04/30/18 05/01/18 05/01/18 20:00 23:45 03:59 07:35 Temp 98.5 98.0 97.9 98.5 98.0 97.9 Pulse 98 88 95 Resp 19 18 20 B/P (MAP) 117/73 (88) 105/65 (78) 136/93 (107) Pulse Ox 97 96 96 O2 Delivery Room Air Room Air Room Air Room Air Intake and Output 04/30/18 04/30/18 05/01/18 15:01 23:01 07:01 Intake Total 1140 ml 120 ml 200 ml Output Total 665 ml Balance 475 ml 120 ml 200 ml CLAIRE DUMONT MD May 01, 2018 08:09
[2018-05-01] MEDS: FOLIC ACID 1 MG TABLET. PO SCH ×2 (09:00→09:05)
[2018-05-01] MEDS: ASPIRIN CHEWABLE 81 MG TABLET. PO SCH (09:06)
[2018-05-01] MEDS: levETIRAcetam 500 MG TABLET PO SCH ×2 (09:06→20:58)
[2018-05-01] MEDS: EZETIMIBE 10 MG TABLET. PO SCH (09:06)
[2018-05-01] MEDS: CARVEDILOL 3.125 MG TABLET. PO SCH ×2 (09:07→16:58)
[2018-05-01 11:53] VITALS: BP 133/93
--- NOTE | 2018-05-01 13:25 | PDOC ---
PULMONARY PROGRESS NOTES Subjective extubated 04/29 on RA Vitals Vital Signs Date Time Temp Pulse Resp B/P (MAP) Pulse Ox O2 Delivery O2 Flow Rate FiO2 05/01/18 11:53 97.5 88 18 133/93 (106) 98 Room Air 97.5 General: Alert, No acute distress Lungs: Clear Cardiovascular: S1, S2 Abdomen: Soft Extremities: Other (1+edema) Labs Laboratory Tests Test 04/29/18 13:30 04/29/18 14:50 04/30/18 03:05 05/01/18 04:15 O2 Saturation 96 % (92-99) Arterial Blood pH 7.45 (7.35-7.45) Arterial Blood pCO2 at Patient Temp 36 mmHg (35-46) Arterial Blood pO2 at Patient Temp 79 mmHg (65-108) Arterial Blood HCO3 24 mmol/L (21-28) Arterial Blood Base Excess 1 mmol/L (-3-3) FiO2 35 Clostridium difficile Toxin B Gene Negative (Negative) Sodium Level 142 mmol/L (136-145) 145 mmol/L (136-145) Potassium Level 4.0 mmol/L (3.5-5.1) 3.8 mmol/L (3.5-5.1) Chloride Level 108 mmol/L (98-107) 111 mmol/L (98-107) Carbon Dioxide Level 26 mmol/L (21-32) 26 mmol/L (21-32) Anion Gap 8 (6-14) 8 (6-14) Blood Urea Nitrogen 13 mg/dL (8-26) 11 mg/dL (8-26) Creatinine 1.7 mg/dL (0.7-1.3) 1.8 mg/dL (0.7-1.3) Estimated GFR (Cockcroft-Gault) 48.9 45.8 Glucose Level 81 mg/dL (70-99) 90 mg/dL (70-99) Calcium Level 8.3 mg/dL (8.5-10.1) 8.7 mg/dL (8.5-10.1) Magnesium Level 2.0 mg/dL (1.8-2.4) White Blood Count 5.2 x10^3/uL (4.0-11.0) Red Blood Count 4.22 x10^6/uL (4.30-5.70) Hemoglobin 12.6 g/dL (13.0-17.5) Hematocrit 38.4 % (39.0-53.0) Mean Corpuscular Volume 91 fL (79-100) Mean Corpuscular Hemoglobin 30 pg (25-35) Mean Corpuscular Hemoglobin Concent 33 g/dL (31-37) Red Cell Distribution Width 14.9 % (11.5-14.5) Platelet Count 180 x10^3/uL (140-400) Neutrophils (%) (Auto) 34 % (31-73) Lymphocytes (%) (Auto) 41 % (24-48) Monocytes (%) (Auto) 20 % (0-9) Eosinophils (%) (Auto) 3 % (0-3) Basophils (%) (Auto) 1 % (0-3) Neutrophils # (Auto) 1.8 x10^3uL (1.8-7.7) Lymphocytes # (Auto) 2.1 x10^3/uL (1.0-4.8) Monocytes # (Auto) 1.1 x10^3/uL (0.0-1.1) Eosinophils # (Auto) 0.2 x10^3/uL (0.0-0.7) Basophils # (Auto) 0.0 x10^3/uL (0.0-0.2) Laboratory Tests Test 05/01/18 04:15 White Blood Count 5.2 x10^3/uL (4.0-11.0) Red Blood Count 4.22 x10^6/uL (4.30-5.70) Hemoglobin 12.6 g/dL (13.0-17.5) Hematocrit 38.4 % (39.0-53.0) Mean Corpuscular Volume 91 fL (79-100) Mean Corpuscular Hemoglobin 30 pg (25-35) Mean Corpuscular Hemoglobin Concent 33 g/dL (31-37) Red Cell Distribution Width 14.9 % (11.5-14.5) Platelet Count 180 x10^3/uL (140-400) Neutrophils (%) (Auto) 34 % (31-73) Lymphocytes (%) (Auto) 41 % (24-48) Monocytes (%) (Auto) 20 % (0-9) Eosinophils (%) (Auto) 3 % (0-3) Basophils (%) (Auto) 1 % (0-3) Neutrophils # (Auto) 1.8 x10^3uL (1.8-7.7) Lymphocytes # (Auto) 2.1 x10^3/uL (1.0-4.8) Monocytes # (Auto) 1.1 x10^3/uL (0.0-1.1) Eosinophils # (Auto) 0.2 x10^3/uL (0.0-0.7) Basophils # (Auto) 0.0 x10^3/uL (0.0-0.2) Sodium Level 145 mmol/L (136-145) Potassium Level 3.8 mmol/L (3.5-5.1) Chloride Level 111 mmol/L (98-107) Carbon Dioxide Level 26 mmol/L (21-32) Anion Gap 8 (6-14) Blood Urea Nitrogen 11 mg/dL (8-26) Creatinine 1.8 mg/dL (0.7-1.3) Estimated GFR (Cockcroft-Gault) 45.8 Glucose Level 90 mg/dL (70-99) Calcium Level 8.7 mg/dL (8.5-10.1) Medications Active Scripts Medications Dose Route/Sig Max Daily Dose Days Date Category Zofran (Ondansetron Hcl) 8 Mg Tablet 1 Tab PO Q8HRS 03/08/18 Reported Zetia (Ezetimibe) 10 Mg Tablet 1 Tab PO DAILY 02/22/18 Reported Folic Acid 1 Mg Tablet 1 Tab PO DAILY 02/22/18 Reported Aspirin 81 Mg Tab.chew 1 Tab PO DAILY 02/22/18 Reported Carvedilol (Carvedilol) 3.125 Mg Tablet 1 Tab PO BID 02/22/18 Reported Levetiracetam 500 Mg Tablet 1 Tab PO BID 02/22/18 Reported Comments cxr resolved interstitial infilt port abnormal Impression . 1. Acute hypercapnic and hypoxic respiratory failure secondary to multifactorial etiologies including extensive bibasilar pneumonia, acute exacerbation of chronic obstructive pulmonary disease./ ? diastolic HF. extubated 04/29 2. Metastatic colon cancer with mets to the liver, undergoing chemotherapy. 3. Abnormal CT chest with extensive bibasilar consolidation. There is some nodularity seen in the left lower lobe consolidation and metastasis to the lung cannot be ruled out. 4. Hypotension, requiring vasopressor likely septic shock from pneumonia. resolved 5. History of nonischemic cardiomyopathy with an ejection fraction of 20%, Plan . 1. extubated 04/29 2. PO nutrition 3. echocardiogram with no RV dysfunction. EF 15% 4. Follow Cardiology recommendation. 5. Follow Oncology recommendation. 6. cxr much improved. 7. DVT prophylaxis, 8. Stress ulcer prophylaxis. 9. antibiotics . CHANGE TO PO 10. Discussed with [facility]IN[facility]ANS PER PCP BRANNON BERNAL MD May 01, 2018 13:24
[2018-05-01] MEDS ORDERED: NAPR-695 PO (14:00)
[2018-05-01 15:40] VITALS: BP 126/89
[2018-05-01] MEDS: NAPROXEN 250 MG TABLET PO SCH (16:57)
[2018-05-01] MEDS: IV NORMAL SALINE 1000ML BAG 1,000 ML IV SCH (16:59)
[2018-05-01 19:30] VITALS: BP 139/88
[2018-05-01] MEDS: AMOXICILLIN/K CLAV 875/125MG TABLET. PO SCH (20:58)
[2018-05-01] MEDS: FAMOTIDINE 20 MG TABLET. PO SCH (20:58)
[2018-05-01 23:00] VITALS: BP 134/84
[2018-05-02 03:37] VITALS: BP 133/88
[2018-05-02] MEDS: IV NORMAL SALINE 1000ML BAG 1,000 ML IV SCH (05:45)
[2018-05-02] MEDS: HEPARIN for SUB-Q USE 5,000 UNIT/ML VIAL. SQ SCH ×2 (05:54→17:29)
[2018-05-02 07:00] VITALS: BP 149/95
[2018-05-02] MEDS: levETIRAcetam 500 MG TABLET PO SCH ×2 (08:59→21:43)
[2018-05-02] MEDS: NAPROXEN 250 MG TABLET PO SCH ×2 (08:59→17:20)
[2018-05-02] MEDS: ASPIRIN CHEWABLE 81 MG TABLET. PO SCH (08:59)
[2018-05-02] MEDS: AMOXICILLIN/K CLAV 875/125MG TABLET. PO SCH ×2 (09:00→21:43)
[2018-05-02] MEDS: CARVEDILOL 3.125 MG TABLET. PO SCH ×2 (09:00→17:20)
[2018-05-02] MEDS: EZETIMIBE 10 MG TABLET. PO SCH (09:03)
--- NOTE | 2018-05-02 10:14 | RAD ---
Indication:SOA TECHNIQUE:Portable AP chest X-ray COMPARISON:04/29/2018 FINDINGS: Heart is normal in size. Mild prominence of bilateral interstitium is seen. No focal consolidation. No pneumothorax or pleural effusion. Interval removal of ET tube and NG tube. Visualized bony thorax is within normal limits. IMPRESSION: Mild prominence of bilateral interstitium may be secondary to interstitial pulmonary edema or atypical/viral infection. Electronically signed by: Romain Siu DO (05/02/2018 10:10 AM) [facility]
--- NOTE | 2018-05-02 10:57 | PDOC ---
PULMONARY PROGRESS NOTES Subjective extubated 04/29 c/o SOA again Vitals Vital Signs Date Time Temp Pulse Resp B/P (MAP) Pulse Ox O2 Delivery O2 Flow Rate FiO2 05/02/18 09:00 90 149/95 05/02/18 07:00 98.1 16 97 Nasal Cannula 3.0 98.1 General: Alert, No acute distress Lungs: Clear Cardiovascular: S1, S2 Abdomen: Soft Extremities: Other (1+edema) Labs Laboratory Tests Test 05/01/18 04:15 White Blood Count 5.2 x10^3/uL (4.0-11.0) Red Blood Count 4.22 x10^6/uL (4.30-5.70) Hemoglobin 12.6 g/dL (13.0-17.5) Hematocrit 38.4 % (39.0-53.0) Mean Corpuscular Volume 91 fL (79-100) Mean Corpuscular Hemoglobin 30 pg (25-35) Mean Corpuscular Hemoglobin Concent 33 g/dL (31-37) Red Cell Distribution Width 14.9 % (11.5-14.5) Platelet Count 180 x10^3/uL (140-400) Neutrophils (%) (Auto) 34 % (31-73) Lymphocytes (%) (Auto) 41 % (24-48) Monocytes (%) (Auto) 20 % (0-9) Eosinophils (%) (Auto) 3 % (0-3) Basophils (%) (Auto) 1 % (0-3) Neutrophils # (Auto) 1.8 x10^3uL (1.8-7.7) Lymphocytes # (Auto) 2.1 x10^3/uL (1.0-4.8) Monocytes # (Auto) 1.1 x10^3/uL (0.0-1.1) Eosinophils # (Auto) 0.2 x10^3/uL (0.0-0.7) Basophils # (Auto) 0.0 x10^3/uL (0.0-0.2) Sodium Level 145 mmol/L (136-145) Potassium Level 3.8 mmol/L (3.5-5.1) Chloride Level 111 mmol/L (98-107) Carbon Dioxide Level 26 mmol/L (21-32) Anion Gap 8 (6-14) Blood Urea Nitrogen 11 mg/dL (8-26) Creatinine 1.8 mg/dL (0.7-1.3) Estimated GFR (Cockcroft-Gault) 45.8 Glucose Level 90 mg/dL (70-99) Calcium Level 8.7 mg/dL (8.5-10.1) Medications Active Scripts Medications Dose Route/Sig Max Daily Dose Days Date Category Zofran (Ondansetron Hcl) 8 Mg Tablet 1 Tab PO Q8HRS 03/08/18 Reported Zetia (Ezetimibe) 10 Mg Tablet 1 Tab PO DAILY 02/22/18 Reported Folic Acid 1 Mg Tablet 1 Tab PO DAILY 02/22/18 Reported Aspirin 81 Mg Tab.chew 1 Tab PO DAILY 02/22/18 Reported Carvedilol (Carvedilol) 3.125 Mg Tablet 1 Tab PO BID 02/22/18 Reported Levetiracetam 500 Mg Tablet 1 Tab PO BID 02/22/18 Reported Comments cxr 05/02 mild interstitial infilt Impression . 1. Acute hypercapnic and hypoxic respiratory failure secondary to multifactorial etiologies including extensive bibasilar pneumonia, acute exacerbation of chronic obstructive pulmonary disease./ systolic HF. extubated . Now again SOA, suspect recurrent systolic HF 2. Metastatic colon cancer with mets to the liver, undergoing chemotherapy. 3. Abnormal CT chest with extensive bibasilar consolidation. There is some nodularity seen in the left lower lobe consolidation and metastasis to the lung cannot be ruled out. 4. Hypotension, requiring vasopressor likely septic shock from pneumonia. resolved 5. History of nonischemic cardiomyopathy with an ejection fraction of 20%, Plan . 1. extubated 04/29 2. dc IVF/ extra lasix 3. echocardiogram with no RV dysfunction. EF 15% 4. Follow Cardiology recommendation. 5. Follow Oncology recommendation. 6. cxr 05/02 reviewed 7. DVT prophylaxis, 8. Stress ulcer prophylaxis. 9. antibiotics . CHANGE TO PO 10. Discussed with BRANNON CARNEY MD May 02, 2018 10:57
[2018-05-02] MEDS ORDERED: FUROSEMIDE 40 MG/4 ML VIAL. IVP ONE (11:00)
[2018-05-02 11:30] VITALS: BP 137/94
--- NOTE | 2018-05-02 12:38 | PDOC ---
PROGRESS NOTES Chief Complaint Chief Complaint 1. Acute respiratory failure secondary; multifactorial given PNA and AECOPD. s/ p intubation. Heparin gtt initiated due to concern for possible PE. Echo ordered to r/o RV dilation. 2. Mild acute on chronic systolic HF with NICM; LVEF 20-25% 3. NSTEMI; initial trop 0.15. Most probably type II demand ischemia 4. Accelerated hypertension, POA. Now with hypotension requiring pressor support. 5. CAD; non-obstructive. 06/2017 LHC 30% to LAD lesion, LCx no occlusion, ramus occluded, RCA with 30-40% proximal lesion. was treated medically at that time 6. Colon CA with liver metastasis 7. CKD 8. Hyperlipidemia; LDL 78 02/2018 9. Slight hematuria 10. Hx of seizures 11. Hx of substance abuse Plan: Continue with supportive measures. Follow recommendations from critical personal caregiver Will d/w oncology if vanco ppx should be started while getting treated for pneumonia Follow recommendations from cardiology follow ECHO results Monitor hemodynamics Poor prognosis given his multiple comorbidities and underlying malignancy with liver metastases History of Present Illness History of Present Illness 68yo M w/ PMHx colon ca recently starting chemo for mets with planned surgery for 2 liver mets who is still recovering from prolonged c. diff requiring vancomycin taper, now being treated for pneumonia initially requiring intubation , now s/p extubation, out of ICU, transferred to floor yesterday. Port-a-cath removal 04/29/18 after notably routing into right jugular vein. Overnight became progressively a bit more short of breath. CXR this morning revealed increased interstitial markings. IVF stopped and now he feels a little better with lasix. Patient sitting in chair in no apparent distress. Good appetite and has been able to eat this morning. No complaints during my interview. He is asking about when his port will be replaced and when he can reinitiate chemo and he is curious if he should still be on oral vanco while on antibiotics. Vitals Vitals Vital Signs Date Time Temp Pulse Resp B/P (MAP) Pulse Ox O2 Delivery O2 Flow Rate FiO2 05/02/18 11:30 84 18 137/94 (108) Nasal Cannula 3.0 05/02/18 07:00 98.1 97 98.1 Physical Exam General: Other (intubated/sedated ) Heart: Regular rate, Other (distant heart tones) Lungs: Clear Abdomen: Soft Extremities: Normal pulses, Other (trace bilateral LE edema ) Skin: No significant lesion Assessment and Plan Assessmemt and Plan Problems Medical Problems: (1) Acute congestive heart failure Status: Acute (2) Acute respiratory failure with hypoxia and hypercapnia Status: Acute (3) Elevated troponin Status: Acute Comment Review of Relevant I have reviewed the following items gala (where applicable) has been applied. Labs Laboratory Tests Test 05/01/18 04:15 White Blood Count 5.2 x10^3/uL (4.0-11.0) Red Blood Count 4.22 x10^6/uL (4.30-5.70) Hemoglobin 12.6 g/dL (13.0-17.5) Hematocrit 38.4 % (39.0-53.0) Mean Corpuscular Volume 91 fL (79-100) Mean Corpuscular Hemoglobin 30 pg (25-35) Mean Corpuscular Hemoglobin Concent 33 g/dL (31-37) Red Cell Distribution Width 14.9 % (11.5-14.5) Platelet Count 180 x10^3/uL (140-400) Neutrophils (%) (Auto) 34 % (31-73) Lymphocytes (%) (Auto) 41 % (24-48) Monocytes (%) (Auto) 20 % (0-9) Eosinophils (%) (Auto) 3 % (0-3) Basophils (%) (Auto) 1 % (0-3) Neutrophils # (Auto) 1.8 x10^3uL (1.8-7.7) Lymphocytes # (Auto) 2.1 x10^3/uL (1.0-4.8) Monocytes # (Auto) 1.1 x10^3/uL (0.0-1.1) Eosinophils # (Auto) 0.2 x10^3/uL (0.0-0.7) Basophils # (Auto) 0.0 x10^3/uL (0.0-0.2) Sodium Level 145 mmol/L (136-145) Potassium Level 3.8 mmol/L (3.5-5.1) Chloride Level 111 mmol/L (98-107) Carbon Dioxide Level 26 mmol/L (21-32) Anion Gap 8 (6-14) Blood Urea Nitrogen 11 mg/dL (8-26) Creatinine 1.8 mg/dL (0.7-1.3) Estimated GFR (Cockcroft-Gault) 45.8 Glucose Level 90 mg/dL (70-99) Calcium Level 8.7 mg/dL (8.5-10.1) Microbiology 04/28/18 Blood Culture - Preliminary, Resulted NO GROWTH AFTER 4 DAYS Medications Current Medications Albuterol/ Ipratropium (Duoneb) 3 ml 1X ONCE NEB Last administered on at 02:12; Start 04/28/18 at 02:30; Stop 04/28/18 at 02:31; Status DC Furosemide (Lasix) 40 mg 1X ONCE IVP Last administered on 04/28/18at 03:24; Start 04/28/18 at 03:30; Stop 04/28/18 at 03:31; Status DC Piperacillin Sod/ Tazobactam Sod (Zosyn Per Pharmacy) 1 each PRN DAILY PRN MC SEE COMMENTS; Start 04/28/18 at 03:15; Status Cancel Piperacillin Sod/ Tazobactam Sod 3.375 gm/Sodium Chloride 50 ml @ 100 mls/hr Q6HRS IV Last administered on 05/01/18at 12:00; Start 04/28/18 at 03:30; Stop 04/07 at 13:26; Status DC Propofol 50 ml @ As Directed STK-MED ONCE IV ; Start 04/28/18 at 04:24; Stop 04/28 at 04:26; Status DC Heparin Sodium (Porcine) (Heparin Sodium) 7,250 unit 1X ONCE IV Last administered on 04/28/18at 04:53; Start 04/28/18 at 05:00; Stop 04/28/18 at 14:08; Status DC Heparin Sodium/ Dextrose 500 ml @ 0 mls/hr CONT PRN IV SEE I/O RECORD Last administered on 04/28/18at 05:04; Start 04/28/18 at 04:30; Stop 04/28/18 at 14:08; Status DC Heparin Sodium (Porcine) (Heparin Sodium) 2,700 unit PRN Q6HRS PRN IV FOR UFH LEVEL LESS THAN 0.2; Start 04/28/18 at 04:30; Stop 04/28/18 at 14:08; Status DC Heparin Sodium (Porcine) (Heparin Sodium) 1,350 unit PRN Q6HRS PRN IV FOR UFH LEVEL 0.2 - 0.29; Start 04/28/18 at 04:30; Stop 04/28/18 at 14:08; Status DC Info (Anti-Coagulation Monitoring By Pharmacy) 1 each PRN DAILY PRN MC SEE COMMENTS Last administered on 04/28/18at 05:49; Start 04/28/18 at 04:45; Stop 04/30 at 08:10; Status DC Levofloxacin/ Dextrose 100 ml @ 100 mls/hr 1X ONCE IV Last administered on 04/28/18at 05:04; Start 04/28/18 at 05:00; Stop 04/28/18 at 05:59; Status DC Midazolam HCl (Versed) 5 mg 1X ONCE IV Last administered on 04/28/18at 04:57; Start 04/28/18 at 05:15; Stop 04/28/18 at 05:16; Status DC Propofol 50 ml @ 1.361 mls/ hr 1X ONCE IV Last administered on 04/28/18at 04:46 ; Start 04/28/18 at 05:15; Stop 04/29/18 at 17:59; Status DC Succinylcholine Chloride (Anectine) 200 mg STK-MED ONCE .ROUTE ; Start 04/28/18 at 05:11; Stop 04/28/18 at 05:13; Status DC Succinylcholine Chloride (Anectine) 100 mg 1X ONCE IV Last administered on 04/28at 04:37; Start 04/28/18 at 06:00; Stop 04/28/18 at 06:01; Status DC Propofol (Diprivan) 100 mg 1X ONCE IV Last administered on 04/28/18at 04:36; Start 04/28/18 at 06:00; Stop 04/28/18 at 06:01; Status DC Albuterol/ Ipratropium (Duoneb) 3 ml 1X ONCE NEB Last administered on at 05:42; Start 04/28/18 at 06:00; Stop 04/28/18 at 06:01; Status DC Midazolam HCl (Versed) 5 mg 1X ONCE IV Last administered on 04/28/18at 05:57; Start 04/28/18 at 06:30; Stop 04/28/18 at 06:31; Status DC Sodium Chloride 1,000 ml @ 1,000 mls/hr 1X ONCE IV Last administered on at 05:57; Start 04/28/18 at 06:15; Stop 04/28/18 at 07:14; Status DC Propofol 100 ml @ As Directed STK-MED ONCE IV ; Start 04/28/18 at 06:28; Stop at 06:30; Status DC Propofol 100 ml @ 0 mls/hr CONT PRN IV SEE PROTOCOL; Start 04/28/18 at 06:45; Stop 05/01/18 at 14:07; Status DC Midazolam HCl 100 ml @ 5 mls/hr CONT PRN IV SEE I/O RECORD Last administered on 04/28/18at 20:33; Start 04/28/18 at 07:30; Stop 05/01/18 at 14:07; Status DC Norepinephrine Bitartrate 250 ml @ 1.875 mls/ hr CONT PRN IV SEE I/O RECORD Last administered on 04/28/18at 11:15; Start 04/28/18 at 07:45; Stop 05/01/18 at 14 :07; Status DC Aspirin (Children'S Aspirin) 81 mg DAILY PO Last administered on 05/02/18at 08: 59; Start 04/28/18 at 10:00 Carvedilol (Coreg) 3.125 mg BIDWMEALS PO Last administered on 05/02/18at 09:00; Start 04/28/18 at 17:00 EZETIMIBE (Zetia) 10 mg DAILY PO Last administered on 05/02/18at 09:03; Start at 10:00 Folic Acid (Folic Acid) 1 mg DAILY PO Last administered on 04/30/18at 09:11; Start 04/28/18 at 10:00; Stop 05/01/18 at 09:13; Status DC Levetiracetam (Keppra) 500 mg BID PO Last administered on 04/29/18at 09:05; Start 04/28/18 at 10:00; Stop 04/29/18 at 17:28; Status DC Famotidine (Pepcid) 20 mg QHS PO Last administered on 05/01/18at 20:58; Start at 21:00 Sodium Chloride 500 ml @ 500 mls/hr 1X ONCE IV Last administered on 04/28/18at 13:56; Start 04/28/18 at 14:00; Stop 04/28/18 at 14:59; Status DC Sodium Chloride 1,000 ml @ 60 mls/hr [id number] IV Last administered on at 05:45; Start 04/28/18 at 14:30; Stop 05/02/18 at 09:54; Status DC Lidocaine/ Epinephrine (LIDOCAINE 1%-EPI 1:100,000 Multi-Dose) 20 ml STK-MED ONCE .ROUTE ; Start 04/29/18 at 09:48; Stop 04/29/18 at 09:49; Status DC Lidocaine/ Epinephrine (LIDOCAINE 1%-EPI 1:100,000 Multi-Dose) 4 ml 1X ONCE INJ Last administered on 04/29/18at 10:21; Start 04/29/18 at 10:15; Stop at 10:16; Status DC Fentanyl Citrate (Fentanyl 2ml Vial) 25 mcg PRN Q2HR PRN IV MODERATE PAIN Last administered on 04/29/18at 10:31; Start 04/29/18 at 10:15 Fentanyl Citrate (Fentanyl 2ml Vial) 50 mcg PRN Q2HR PRN IV SEVERE PAIN; Start 04/29/18 at 10:15 Heparin Sodium (Porcine) (Heparin Sodium) 5,000 unit Q12H SQ Last administered on 04/29/18at 15:26; Start 04/29/18 at 14:00; Stop 04/30/18 at 00:23; Status DC Levetiracetam 500 mg/Dextrose 105 ml @ 420 mls/hr Q12HR IV Last administered on 04/29/18at 20:35; Start 04/29/18 at 21:00; Stop 04/30/18 at 07:58; Status DC Metoprolol Tartrate (Lopressor Vial) 5 mg PRN Q4HRS PRN IVP For SBP > 150 and/ or HR > 90; Start 04/29/18 at 17:30 Heparin Sodium (Porcine) (Heparin Sodium) 5,000 unit Q12H SQ Last administered on 05/02/18at 05:54; Start 04/30/18 at 06:00 Levetiracetam (Keppra) 500 mg BID PO Last administered on 05/02/18at 08:59; Start 04/30/18 at 09:00 Amoxicillin/ Clavulanate Potassium (Augmentin 875/ 125mg) 1 tab BID PO Last administered on 05/02/18at 09:00; Start 05/01/18 at 21:00 Naproxen (Naprosyn) 250 mg BIDWMEALS PO Last administered on 05/02/18at 08:59; Start 05/01/18 at 17:00 Furosemide (Lasix) 40 mg 1X ONCE IVP Last administered on 05/02/18at 11:29; Start 05/02/18 at 11:00; Stop 05/02/18 at 11:01; Status DC Active Scripts Active Reported Naproxen 375 Mg Tablet 1 Tab PO BID Zofran (Ondansetron Hcl) 8 Mg Tablet 1 Tab PO Q8HRS Zetia (Ezetimibe) 10 Mg Tablet 1 Tab PO DAILY Folic Acid 1 Mg Tablet 1 Tab PO DAILY Aspirin 81 Mg Tab.chew 1 Tab PO DAILY Carvedilol (Carvedilol) 3.125 Mg Tablet 1 Tab PO BID Levetiracetam 500 Mg Tablet 1 Tab PO BID Vitals/I & O Vital Sign - Last 24 Hours 05/01/18 05/01/18 05/01/18 05/01/18 15:40 16:58 19:30 20:09 Temp 97.7 98.6 97.7 98.6 Pulse 85 85 100 Resp 18 16 B/P (MAP) 126/89 (101) 126/89 139/88 (105) Pulse Ox 98 99 O2 Delivery Room Air Room Air Room Air 05/01/18 05/02/18 05/02/18 05/02/18 23:00 03:37 07:00 08:00 Temp 98.6 98.2 98.1 98.6 98.2 98.1 Pulse 95 91 90 Resp 16 16 16 B/P (MAP) 134/84 (101) 133/88 (103) 149/95 (113) Pulse Ox 97 95 97 O2 Delivery Room Air Room Air Nasal Cannula Room Air O2 Flow Rate 3.0 3.0 05/02/18 05/02/18 09:00 11:30 Pulse 90 84 Resp 18 B/P (MAP) 149/95 137/94 (108) O2 Delivery Nasal Cannula O2 Flow Rate 3.0 Intake and Output 05/01/18 05/01/1805/02/19 15:01 23:01 07:01 Intake Total 500 ml 240 ml Output Total 600 ml 400 ml Balance -100 ml -160 ml CLAIRE DUMONT MD May 02, 2018 12:38
[2018-05-02 15:00] VITALS: BP 113/80
[2018-05-02 19:45] VITALS: BP 128/85
[2018-05-02] MEDS: FAMOTIDINE 20 MG TABLET. PO SCH (21:43)
[2018-05-02 23:48] VITALS: BP 162/95
[2018-05-03] VITALS (12 sets, daily range): BP systolic 100–135; BP diastolic 60–80
[2018-05-03] MEDS: HEPARIN for SUB-Q USE 5,000 UNIT/ML VIAL. SQ SCH ×2 (06:00→17:34)
[2018-05-03] MEDS: EZETIMIBE 10 MG TABLET. PO SCH (09:10)
[2018-05-03] MEDS: levETIRAcetam 500 MG TABLET PO SCH ×2 (09:11→20:36)
[2018-05-03] MEDS: CARVEDILOL 3.125 MG TABLET. PO SCH ×2 (09:11→17:28)
[2018-05-03] MEDS: ASPIRIN CHEWABLE 81 MG TABLET. PO SCH (09:11)
[2018-05-03] MEDS: AMOXICILLIN/K CLAV 875/125MG TABLET. PO SCH ×2 (09:11→20:36)
[2018-05-03] MEDS: NAPROXEN 250 MG TABLET PO SCH ×2 (09:11→17:28)
--- NOTE | 2018-05-03 09:31 | PDOC ---
SUBJECTIVE Subjective S: Doing well, did have one episode of shortness of air and improved with oxygen alone, feels like he's okay for discharge but once his port replaced prior O: Physical exam: Gen.: Well-nourished and well-developed, resting in chair Lungs: Breathing comfortably with no evidence of respiratory distress Psychiatric: Pleasant mood and affect Labs: White count 5200, hemoglobin 12.6, platelets 180 Influenza negative MRSA negative Creatinine 1.8 C diff neg Assessment and Plan: He is a 68-year-old man who recently started chemotherapy neoadjuvant for metastatic colon cancer with anticipation of colon surgery and surgical excision of 2 liver metastases, chemotherapy initially delayed due to prolonged C. difficile requiring vancomycin taper, and now being treated for pneumonia after acute respiratory failure requiring intubation on admit, he's better, port out (structural problem) thursday. NSTEMI: f/u cardiology prn Respiratory failure: doing much better now Pneumonia: On antibiotics Colon cancer: Chemotherapy on hold for current admission, likely need to dose reduce dose prior to next cycle of chemotherapy and see us as an outpatient as well to ensure infection has been adequately treated prior to redosing Loose stools: resolved, C. difficile negative Disposition: after port, hopefully this pm? consult placed, he will follow-up with us prior to next chemotherapy Port: needed revision, removed, will likely replace prior to next chemotherapy ( he'd like this done today or tomorrow am, will see when it can be done...) Thank you kindly and please do not hesitate to call with questions. OBJECTIVE Vital Signs Vital Signs Date Time Temp Pulse Resp B/P (MAP) Pulse Ox O2 Delivery O2 Flow Rate FiO2 05/03/18 09:11 87 112/65 05/03/18 03:55 97.8 87 18 112/65 (81) 100 Nasal Cannula 3.0 97.8 05/02/18 23:48 97.6 91 18 162/95 (117) 100 Nasal Cannula 3.0 97.6 05/02/18 20:24 Nasal Cannula 3.0 05/02/18 19:45 98.8 84 18 128/85 (99) 100 Nasal Cannula 3.0 98.8 05/02/18 17:20 85 113/80 05/02/18 15:00 97.7 85 16 113/80 (91) Nasal Cannula 3.0 97.7 05/02/18 11:30 84 18 137/94 (108) Nasal Cannula 3.0 I & O Intake and Output 05/03/18 07:01 Intake Total 400 ml Output Total 450 ml Balance -50 ml Intake Oral 400 ml Output Urine Total 450 ml GIACOMO MARIN MD May 03, 2018 09:30
[2018-05-03 10:18] LABS: PROTHROMBIN TIME PATIENT 14.4 SEC (11.7-14.0)
--- NOTE | 2018-05-03 12:37 | PDOC ---
PULMONARY PROGRESS NOTES Subjective extubated 04/29 c/o SOA again YESTERDAY, RESPONDED TO iv LASIX Vitals Vital Signs Date Time Temp Pulse Resp B/P (MAP) Pulse Ox O2 Delivery O2 Flow Rate FiO2 05/03/18 10:24 97.5 85 17 135/80 (98) 98 Room Air 97.5 05/03/18 03:55 3.0 General: Alert, No acute distress Lungs: Clear Cardiovascular: S1, S2 Abdomen: Soft Extremities: Other (1+edema) Labs Laboratory Tests Test 05/03/18 09:50 Prothrombin Time 14.4 SEC (11.7-14.0) Prothromb Time International Ratio 1.2 (0.8-1.1) Activated Partial Thromboplast Time 30 SEC (24-38) Laboratory Tests Test 05/03/18 09:50 Prothrombin Time 14.4 SEC (11.7-14.0) Prothromb Time International Ratio 1.2 (0.8-1.1) Activated Partial Thromboplast Time 30 SEC (24-38) Medications Active Scripts Medications Dose Route/Sig Max Daily Dose Days Date Category Zofran (Ondansetron Hcl) 8 Mg Tablet 1 Tab PO Q8HRS 03/08/18 Reported Zetia (Ezetimibe) 10 Mg Tablet 1 Tab PO DAILY 02/22/18 Reported Folic Acid 1 Mg Tablet 1 Tab PO DAILY 02/22/18 Reported Aspirin 81 Mg Tab.chew 1 Tab PO DAILY 02/22/18 Reported Carvedilol (Carvedilol) 3.125 Mg Tablet 1 Tab PO BID 02/22/18 Reported Levetiracetam 500 Mg Tablet 1 Tab PO BID 02/22/18 Reported Comments cxr 05/02 mild interstitial infilt Impression . 1. Acute hypercapnic and hypoxic respiratory failure secondary to multifactorial etiologies including bibasilar pneumonia, acute exacerbation of chronic obstructive pulmonary disease./ systolic HF. extubated .again SOA 05/02, due to recurrent systolic HF, responded to IV lasix 2. Metastatic colon cancer with mets to the liver, undergoing chemotherapy. 3. Abnormal CT chest with extensive bibasilar consolidation. resolved 4. Hypotension, requiring vasopressor likely septic shock from pneumonia. resolved 5. History of nonischemic cardiomyopathy with an ejection fraction of 15-20%, Plan . 1. extubated 04/29 2. lasix 3. echocardiogram with no RV dysfunction. EF 15% 4. Follow Cardiology recommendation. Needs cardiology as OP 5. Follow Oncology recommendation. 6. cxr 05/02 reviewed 7. DVT prophylaxis, 8. Stress ulcer prophylaxis. 9. CHANGED TO PO 10. Discussed with BRANNON CARNEY MD May 03, 2018 12:37
[2018-05-03] MEDS ORDERED: HEPARIN PF 500 UNIT/5 ML DISP.SYRIN. IV ONE ×2 (13:55→14:15)
[2018-05-03] MEDS ORDERED: LIDOCAINE 1%/EPI 1:100,000 20 ML VIAL. IJ ONE (14:00)
[2018-05-03] MEDS ORDERED: fentaNYL PF VIAL 100 MCG/2 ML VIAL IV ONE (14:00)
[2018-05-03] MEDS ORDERED: MIDAZOLAM HCL/PF 2 MG/2 ML VIAL. IV ONE (14:00)
[2018-05-03] MEDS: FAMOTIDINE 20 MG TABLET. PO SCH (20:36)
[2018-05-04 03:00] VITALS: BP 100/61
[2018-05-04] MEDS: HEPARIN for SUB-Q USE 5,000 UNIT/ML VIAL. SQ SCH (06:19)
[2018-05-04 07:25] VITALS: BP 163/72
[2018-05-04 07:38] VITALS: BP 126/78
--- NOTE | 2018-05-04 08:26 | PDOC ---
SUBJECTIVE Subjective S: Doing OK, port in, feels like he cont's to need O2, requesting O2 for d/c O: Physical exam: Gen.: Well-nourished and well-developed, resting in chair Lungs: Breathing comfortably with no evidence of respiratory distress, though on O2, port at L chest w/ bandage Psychiatric: Pleasant mood and affect Labs: reviewed Influenza negative MRSA negative C diff neg Assessment and Plan: He is a 68-year-old man who recently started chemotherapy neoadjuvant for metastatic colon cancer with anticipation of colon surgery and surgical excision of 2 liver metastases, chemotherapy initially delayed due to prolonged C. difficile requiring vancomycin taper, and now being treated for pneumonia after acute respiratory failure requiring intubation on admit Apr, he's better, port out (structural problem) thursday and back in yesterday. Feels like he needs O2. NSTEMI: f/u cardiology prn Respiratory failure: doing much better now, but will need eval for O2 prior to d /c, may need short term post pneumonia Pneumonia: On antibiotics, defer to primary duration Colon cancer: Chemotherapy on hold for current admission, will dose reduce dose prior to next cycle of chemotherapy and see us as an outpatient (next thu or ) as well to ensure infection has been adequately treated prior to redosing Loose stools: resolved, C. difficile negative Disposition: today, w/ O2? Port: apprec IR revision Thank you kindly and please do not hesitate to call with questions. OBJECTIVE Vital Signs Vital Signs Date Time Temp Pulse Resp B/P (MAP) Pulse Ox O2 Delivery O2 Flow Rate FiO2 05/04/18 07:38 98.0 79 18 126/78 (94) 100 Nasal Cannula 2.0 98.0 05/04/18 03:00 89 17 100/61 (74) 95 Nasal Cannula 2.0 05/03/18 23:00 97.9 84 17 130/78 (95) 100 Nasal Cannula 2.0 97.9 05/03/18 20:00 Nasal Cannula 3.0 05/03/18 19:40 98 Nasal Cannula 2.0 05/03/18 19:00 97.9 87 16 100/60 (73) 93 Room Air 97.9 05/03/18 17:28 83 124/72 05/03/18 17:20 74 111/76 (88) Room Air 05/03/18 16:20 89 115/74 (88) Room Air 05/03/18 15:51 83 124/72 (89) 98 Room Air 05/03/18 15:36 81 115/78 (90) 99 Room Air 05/03/18 15:21 85 120/77 (91) 99 Room Air 05/03/18 15:06 69 123/79 (94) 96 Room Air 05/03/18 14:52 97.6 83 17 121/77 (92) 96 Room Air 97.6 05/03/18 14:27 75 15 100 Nasal Cannula 2.0 05/03/18 14:00 15 05/03/18 10:24 97.5 85 17 135/80 (98) 98 Room Air 97.5 05/03/18 09:11 87 112/65 I & O Intake and Output 05/04/18 07:01 Intake Total 700 ml Balance 700 ml Intake Oral 700 ml # Voids 2 COMMENT Lab Laboratory Tests Test 05/03/18 09:50 Prothrombin Time 14.4 SEC (11.7-14.0) Prothromb Time International Ratio 1.2 (0.8-1.1) Activated Partial Thromboplast Time 30 SEC (24-38) GIACOMO MARIN MD May 04, 2018 08:26
--- NOTE | 2018-05-04 08:48 | PDOC ---
PULMONARY PROGRESS NOTES Subjective extubated 04/29 NOT MORE SOA Vitals Vital Signs Date Time Temp Pulse Resp B/P (MAP) Pulse Ox O2 Delivery O2 Flow Rate FiO2 05/04/18 07:38 98.0 79 18 126/78 (94) 100 Nasal Cannula 2.0 98.0 ROS: No Nausea, No Chest Pain, No Abdominal Pain, No Increase Cough General: Alert, No acute distress Lungs: Clear Cardiovascular: S1, S2 Abdomen: Soft Extremities: Other (1+edema) Labs Laboratory Tests Test 05/03/18 09:50 Prothrombin Time 14.4 SEC (11.7-14.0) Prothromb Time International Ratio 1.2 (0.8-1.1) Activated Partial Thromboplast Time 30 SEC (24-38) Laboratory Tests Test 05/03/18 09:50 Prothrombin Time 14.4 SEC (11.7-14.0) Prothromb Time International Ratio 1.2 (0.8-1.1) Activated Partial Thromboplast Time 30 SEC (24-38) Medications Active Scripts Medications Dose Route/Sig Max Daily Dose Days Date Category Zofran (Ondansetron Hcl) 8 Mg Tablet 1 Tab PO Q8HRS 03/08/18 Reported Zetia (Ezetimibe) 10 Mg Tablet 1 Tab PO DAILY 02/22/18 Reported Folic Acid 1 Mg Tablet 1 Tab PO DAILY 02/22/18 Reported Aspirin 81 Mg Tab.chew 1 Tab PO DAILY 02/22/18 Reported Carvedilol (Carvedilol) 3.125 Mg Tablet 1 Tab PO BID 02/22/18 Reported Levetiracetam 500 Mg Tablet 1 Tab PO BID 02/22/18 Reported Comments cxr 05/02 mild interstitial infilt Impression . 1. Acute hypercapnic and hypoxic respiratory failure secondary to multifactorial etiologies including bibasilar pneumonia, acute exacerbation of chronic obstructive pulmonary disease./ systolic HF. extubated .again SOA 05/02, due to recurrent systolic HF, responded to IV lasix 2. Metastatic colon cancer with mets to the liver, undergoing chemotherapy. 3. Abnormal CT chest with extensive bibasilar consolidation. resolved 4. Hypotension, requiring vasopressor likely septic shock from pneumonia. resolved 5. History of nonischemic cardiomyopathy with an ejection fraction of 15-20%, Plan . OK TO D/C FOLLOW UP IN OFFICE NEEDED D/C SMOKING THANKS KAUSHAL CAMP MD May 04, 2018 08:48
--- NOTE | 2018-05-04 09:18 | NUR ---
SW following pt. Per RN pt is independent with ADL's and no skilled needs at this time. Pt will need home 02 and 6 min walk is ordered. SW will continue to follow.
[2018-05-04] MEDS: NAPROXEN 250 MG TABLET PO SCH (09:19)
[2018-05-04] MEDS: EZETIMIBE 10 MG TABLET. PO SCH (09:19)
[2018-05-04] MEDS: AMOXICILLIN/K CLAV 875/125MG TABLET. PO SCH (09:19)
[2018-05-04] MEDS: ASPIRIN CHEWABLE 81 MG TABLET. PO SCH (09:19)
[2018-05-04] MEDS: levETIRAcetam 500 MG TABLET PO SCH (09:19)
[2018-05-04] MEDS: CARVEDILOL 3.125 MG TABLET. PO SCH (09:19)
--- NOTE | 2018-05-04 10:08 | PDOC ---
CARDIO Progress Notes Date and Time Date of Service 05/04/2018 Time of Evaluation 0930 Subjective Subjective: No Chest Pain, No shortness of breath, No Palpitations Vitals Vitals Vital Signs Date Time Temp Pulse Resp B/P (MAP) Pulse Ox O2 Delivery O2 Flow Rate FiO2 05/04/18 09:19 79 126/78 05/04/18 07:38 98.0 18 100 Nasal Cannula 2.0 98.0 Weight Weight [ ] Input and Output Intake and Output Intake and Output 05/04/18 07:01 Intake Total 700 ml Balance 700 ml Intake Oral 700 ml # Voids 2 Microbiology Micro Microbiology 04/28/18 Blood Culture - Final, Complete NO GROWTH AFTER 5 DAYS Physical Exam HEENT: Neck Supple W Full Motion Chest: Symmetric LUNGS: Other (faint basilar crackles) Heart: S1S2, RRR (SR) Abdomen: Soft N/T Extremities: Other (tracce Le edema) Neurology: alert, oriented, follow commands Assessment Assessment 1. Acute respiratory failure secondary; multifactorial given PNA and AECOPD. compensated 2. Mild acute on chronic systolic HF with NICM; LVEF 20-25% compensated 3. NSTEMI; initial trop 0.15. Type II demand ischemia 4. Accelerated HTN: controlled 5. Nonobstructive CAD 6. Colon CA with liver metastasis: chemo and potential surgery are pending. hemonc following 7. CKD 8. HLP Recommendations 1. Continue with hemonc and pulmonary recommendations 2. May DC to home today. Continue lasix therapy. and secondary prevention measures including statin, BB, lasix and lisinopril 3. Educated about daily wt, 2L FR and CHF care. Discussed with staff 4. Follow up in CHF clinic as scheduled. AICD consideration will depend on his CA treatment/status and life expectancy. NOE MELO APRN May 04, 2018 10:08
[2018-05-04] MEDS ORDERED: FUROSEMIDE 40 MG TABLET. PO SCH (10:30)
[2018-05-04] MEDS ORDERED: POTASSIUM CHLORIDE 10 MEQ TABLET.ER. PO SCH (10:30)
[2018-05-04] MEDS ORDERED: LISINOPRIL 5 MG TABLET. PO SCH (10:30)
[2018-05-04 11:02] VITALS: BP 132/84
--- NOTE | 2018-05-04 11:23 | RAD ---
Procedure: Ultrasound and fluoroscopically guided placement of right internal jugular power port.. 05/04/2018 11:08 AM Clinical Indication: 68-year-old man on chemotherapy, needs port, today please? Sedation: Conscious sedation was administered for 30 minutes. The patient was monitored by a qualified independent observer throughout the time of sedation. Please refer to the medical record for exact doses of medications utilized to achieve moderate sedation. Fluoroscopy time: 1 minutes Dose area product: 5 Gycm2 Consent: The procedure was explained in its entirety to the patient or the patients designated human resources representative by a member of the treatment team, including a discussion of the risks, benefits and commonly accepted alternatives to the procedure, as well as the expected consequences of no therapy whatsoever. Discussion of the risks included, but was not limited to, those that are most frequent and those that are rare but possibly severe or life-threatening, as well as the possibility of unforeseen complications. Technique and Findings: All elements of maximal sterile barrier technique including the use of a cap, mask, sterile gown, sterile gloves, large sterile sheet, appropriate hand hygiene, and 2% chlorhexidine for cutaneous antisepsis (or acceptable alternative antiseptic per current guidelines) were followed for this procedure. Following informed consent, and a timeout procedure, the patient was prepped and draped in the usual sterile fashion. Ultrasound interrogation of the left neck revealed patency and compressibility of the right internal jugular vein. A 21-gauge micropuncture was then used to gain access to this vein under ultrasound guidance. A hard copy ultrasound image was recorded. The needle was exchanged over a wire for a sheath. A 1 inch incision was made several centimeters inferior to the venotomy site. A catheter was tunneled from this site dermatotomy site in the neck. Catheter was advanced through peel-away sheath such that its tip was in the proximal right atrium with the patient supine. The catheter was trimmed to length and connected to the port reservoir. The port was found to flush and aspirate normally. The wound was closed in layers using 4-0 Vicryl suture. Sterile dressings were applied. Impression: Successful ultrasound and fluoroscopically guided placement of a left internal jugular PowerPort
--- NOTE | 2018-05-04 11:35 | PDOC ---
PROGRESS NOTES Chief Complaint Chief Complaint Shortness of Breath History of Present Illness History of Present Illness Patient seen and examined this morning. Discussed with patient discharging with O2 and probable discharge today. Patient is doing much better and was excited to get home. Vitals Vitals Vital Signs Date Time Temp Pulse Resp B/P (MAP) Pulse Ox O2 Delivery O2 Flow Rate FiO2 05/04/18 11:02 97.8 82 19 132/84 (100) 96 Room Air 97.8 05/04/18 08:00 3.0 Physical Exam General: Other (intubated/sedated ) Heart: Regular rate, Other (distant heart tones) Lungs: Clear Abdomen: Soft Extremities: Normal pulses, Other (trace bilateral LE edema ) Skin: No significant lesion Review of Systems Review of Systems Heart: denies chest pain Lung: reports improvement in SOA, but states he does have some still with exercise/mobility GI: denies nausea/vomiting Assessment and Plan Assessmemt and Plan Assessment: 1. Acute respiratory failure 2. Heart failure 3. Colon cancer Plan: 1. Follow up outpatient cardiology clinic 2. Follow up outpatient oncology for colon cancer treatment 3. Probable D/C home today with O2 4. home meds 5. PT/OT 6. Appreciate subspecialty input Comment Review of Relevant I have reviewed the following items gala (where applicable) has been applied. Labs Laboratory Tests Test 05/03/18 09:50 Prothrombin Time 14.4 SEC (11.7-14.0) Prothromb Time International Ratio 1.2 (0.8-1.1) Activated Partial Thromboplast Time 30 SEC (24-38) Microbiology 04/28/18 Blood Culture - Final, Complete NO GROWTH AFTER 5 DAYS Medications Current Medications Albuterol/ Ipratropium (Duoneb) 3 ml 1X ONCE NEB Last administered on at 02:12; Start 04/28/18 at 02:30; Stop 04/28/18 at 02:31; Status DC Furosemide (Lasix) 40 mg 1X ONCE IVP Last administered on 04/28/18at 03:24; Start 04/28/18 at 03:30; Stop 04/28/18 at 03:31; Status DC Piperacillin Sod/ Tazobactam Sod (Zosyn Per Pharmacy) 1 each PRN DAILY PRN MC SEE COMMENTS; Start 04/28/18 at 03:15; Status Cancel Piperacillin Sod/ Tazobactam Sod 3.375 gm/Sodium Chloride 50 ml @ 100 mls/hr Q6HRS IV Last administered on 05/01/18at 12:00; Start 04/28/18 at 03:30; Stop 04/07 at 13:26; Status DC Propofol 50 ml @ As Directed STK-MED ONCE IV ; Start 04/28/18 at 04:24; Stop 04/28 at 04:26; Status DC Heparin Sodium (Porcine) (Heparin Sodium) 7,250 unit 1X ONCE IV Last administered on 04/28/18at 04:53; Start 04/28/18 at 05:00; Stop 04/28/18 at 14:08; Status DC Heparin Sodium/ Dextrose 500 ml @ 0 mls/hr CONT PRN IV SEE I/O RECORD Last administered on 04/28/18at 05:04; Start 04/28/18 at 04:30; Stop 04/28/18 at 14:08; Status DC Heparin Sodium (Porcine) (Heparin Sodium) 2,700 unit PRN Q6HRS PRN IV FOR UFH LEVEL LESS THAN 0.2; Start 04/28/18 at 04:30; Stop 04/28/18 at 14:08; Status DC Heparin Sodium (Porcine) (Heparin Sodium) 1,350 unit PRN Q6HRS PRN IV FOR UFH LEVEL 0.2 - 0.29; Start 04/28/18 at 04:30; Stop 04/28/18 at 14:08; Status DC Info (Anti-Coagulation Monitoring By Pharmacy) 1 each PRN DAILY PRN MC SEE COMMENTS Last administered on 04/28/18at 05:49; Start 04/28/18 at 04:45; Stop 04/30 at 08:10; Status DC Levofloxacin/ Dextrose 100 ml @ 100 mls/hr 1X ONCE IV Last administered on 04/28/18at 05:04; Start 04/28/18 at 05:00; Stop 04/28/18 at 05:59; Status DC Midazolam HCl (Versed) 5 mg 1X ONCE IV Last administered on 04/28/18at 04:57; Start 04/28/18 at 05:15; Stop 04/28/18 at 05:16; Status DC Propofol 50 ml @ 1.361 mls/ hr 1X ONCE IV Last administered on 04/28/18at 04:46 ; Start 04/28/18 at 05:15; Stop 04/29/18 at 17:59; Status DC Succinylcholine Chloride (Anectine) 200 mg STK-MED ONCE .ROUTE ; Start 04/28/18 at 05:11; Stop 04/28/18 at 05:13; Status DC Succinylcholine Chloride (Anectine) 100 mg 1X ONCE IV Last administered on 04/28at 04:37; Start 04/28/18 at 06:00; Stop 04/28/18 at 06:01; Status DC Propofol (Diprivan) 100 mg 1X ONCE IV Last administered on 04/28/18at 04:36; Start 04/28/18 at 06:00; Stop 04/28/18 at 06:01; Status DC Albuterol/ Ipratropium (Duoneb) 3 ml 1X ONCE NEB Last administered on at 05:42; Start 04/28/18 at 06:00; Stop 04/28/18 at 06:01; Status DC Midazolam HCl (Versed) 5 mg 1X ONCE IV Last administered on 04/28/18at 05:57; Start 04/28/18 at 06:30; Stop 04/28/18 at 06:31; Status DC Sodium Chloride 1,000 ml @ 1,000 mls/hr 1X ONCE IV Last administered on at 05:57; Start 04/28/18 at 06:15; Stop 04/28/18 at 07:14; Status DC Propofol 100 ml @ As Directed STK-MED ONCE IV ; Start 04/28/18 at 06:28; Stop at 06:30; Status DC Propofol 100 ml @ 0 mls/hr CONT PRN IV SEE PROTOCOL; Start 04/28/18 at 06:45; Stop 05/01/18 at 14:07; Status DC Midazolam HCl 100 ml @ 5 mls/hr CONT PRN IV SEE I/O RECORD Last administered on 04/28/18at 20:33; Start 04/28/18 at 07:30; Stop 05/01/18 at 14:07; Status DC Norepinephrine Bitartrate 250 ml @ 1.875 mls/ hr CONT PRN IV SEE I/O RECORD Last administered on 04/28/18at 11:15; Start 04/28/18 at 07:45; Stop 05/01/18 at 14 :07; Status DC Aspirin (Children'S Aspirin) 81 mg DAILY PO Last administered on 05/04/18at 09: 19; Start 04/28/18 at 10:00 Carvedilol (Coreg) 3.125 mg BIDWMEALS PO Last administered on 05/04/18at 09:19; Start 04/28/18 at 17:00 EZETIMIBE (Zetia) 10 mg DAILY PO Last administered on 05/04/18at 09:19; Start at 10:00 Folic Acid (Folic Acid) 1 mg DAILY PO Last administered on 04/30/18at 09:11; Start 04/28/18 at 10:00; Stop 05/01/18 at 09:13; Status DC Levetiracetam (Keppra) 500 mg BID PO Last administered on 04/29/18at 09:05; Start 04/28/18 at 10:00; Stop 04/29/18 at 17:28; Status DC Famotidine (Pepcid) 20 mg QHS PO Last administered on 05/03/18at 20:36; Start at 21:00 Sodium Chloride 500 ml @ 500 mls/hr 1X ONCE IV Last administered on 04/28/18at 13:56; Start 04/28/18 at 14:00; Stop 04/28/18 at 14:59; Status DC Sodium Chloride 1,000 ml @ 60 mls/hr [id number] IV Last administered on at 05:45; Start 04/28/18 at 14:30; Stop 05/02/18 at 09:54; Status DC Lidocaine/ Epinephrine (LIDOCAINE 1%-EPI 1:100,000 Multi-Dose) 20 ml STK-MED ONCE .ROUTE ; Start 04/29/18 at 09:48; Stop 04/29/18 at 09:49; Status DC Lidocaine/ Epinephrine (LIDOCAINE 1%-EPI 1:100,000 Multi-Dose) 4 ml 1X ONCE INJ Last administered on 04/29/18at 10:21; Start 04/29/18 at 10:15; Stop at 10:16; Status DC Fentanyl Citrate (Fentanyl 2ml Vial) 25 mcg PRN Q2HR PRN IV MODERATE PAIN Last administered on 04/29/18at 10:31; Start 04/29/18 at 10:15 Fentanyl Citrate (Fentanyl 2ml Vial) 50 mcg PRN Q2HR PRN IV SEVERE PAIN; Start 04/29/18 at 10:15 Heparin Sodium (Porcine) (Heparin Sodium) 5,000 unit Q12H SQ Last administered on 04/29/18at 15:26; Start 04/29/18 at 14:00; Stop 04/30/18 at 00:23; Status DC Levetiracetam 500 mg/Dextrose 105 ml @ 420 mls/hr Q12HR IV Last administered on 04/29/18at 20:35; Start 04/29/18 at 21:00; Stop 04/30/18 at 07:58; Status DC Metoprolol Tartrate (Lopressor Vial) 5 mg PRN Q4HRS PRN IVP For SBP > 150 and/ or HR > 90; Start 04/29/18 at 17:30 Heparin Sodium (Porcine) (Heparin Sodium) 5,000 unit Q12H SQ Last administered on 05/04/18at 06:19; Start 04/30/18 at 06:00 Levetiracetam (Keppra) 500 mg BID PO Last administered on 05/04/18at 09:19; Start 04/30/18 at 09:00 Amoxicillin/ Clavulanate Potassium (Augmentin 875/ 125mg) 1 tab BID PO Last administered on 05/04/18at 09:19; Start 05/01/18 at 21:00 Naproxen (Naprosyn) 250 mg BIDWMEALS PO Last administered on 05/04/18at 09:19; Start 05/01/18 at 17:00 Furosemide (Lasix) 40 mg 1X ONCE IVP Last administered on 05/02/18at 11:29; Start 05/02/18 at 11:00; Stop 05/02/18 at 11:01; Status DC Midazolam HCl (Versed) 2 mg 1X ONCE IV Last administered on 05/03/18at 14:00; Start 05/03/18 at 14:00; Stop 05/03/18 at 14:01; Status DC Fentanyl Citrate (Fentanyl 2ml Vial) 100 mcg 1X ONCE IV Last administered on at 14:00; Start 05/03/18 at 14:00; Stop 05/03/18 at 14:01; Status DC Lidocaine/ Epinephrine (LIDOCAINE 1%-EPI 1:100,000 Multi-Dose) 20 ml 1X ONCE IJ Last administered on 05/03/18at 14:00; Start 05/03/18 at 14:00; Stop at 14:01; Status DC Cefazolin Sodium/ Dextrose 50 ml @ 100 mls/hr 1X ONCE IV Last administered on 05/03/18at 14:00; Start 05/03/18 at 14:00; Stop 05/03/18 at 14:29; Status DC Heparin Sodium (Porcine) (Hep Lock Adult) 500 unit STK-MED ONCE IV ; Start 05/03 at 13:55; Stop 05/03/18 at 13:57; Status DC Heparin Sodium (Porcine) (Hep Lock Adult) 500 unit 1X ONCE IV Last administered on 05/03/18at 14:15; Start 05/03/18 at 14:15; Stop 05/03/18 at 14:28 ; Status DC Furosemide (Lasix) 40 mg DAILY PO ; Start 05/04/18 at 10:30 Lisinopril (Prinivil) 5 mg DAILY PO ; Start 05/04/18 at 10:30 Potassium Chloride (Klor-Con) 10 meq DAILYWBKFT PO ; Start 05/04/18 at 10:30 Atorvastatin Calcium (Lipitor) 10 mg QHS PO ; Start 05/04/18 at 21:00 Active Scripts Active Reported Naproxen 375 Mg Tablet 1 Tab PO BID Zofran (Ondansetron Hcl) 8 Mg Tablet 1 Tab PO Q8HRS Zetia (Ezetimibe) 10 Mg Tablet 1 Tab PO DAILY Folic Acid 1 Mg Tablet 1 Tab PO DAILY Aspirin 81 Mg Tab.chew 1 Tab PO DAILY Carvedilol (Carvedilol) 3.125 Mg Tablet 1 Tab PO BID Levetiracetam 500 Mg Tablet 1 Tab PO BID Vitals/I & O Vital Sign - Last 24 Hours 05/03/18 05/03/18 05/03/18 05/03/18 14:00 14:27 14:52 15:06 Temp 97.6 97.6 Pulse 75 83 69 Resp 15 15 17 B/P (MAP) 121/77 (92) 123/79 (94) Pulse Ox 100 96 96 O2 Delivery Nasal Cannula Room Air Room Air O2 Flow Rate 2.0 05/03/18 05/03/18 05/03/18 05/03/18 15:21 15:36 15:51 16:20 Pulse 85 81 83 89 B/P (MAP) 120/77 (91) 115/78 (90) 124/72 (89) 115/74 (88) Pulse Ox 99 99 98 O2 Delivery Room Air Room Air Room Air Room Air 05/03/18 05/03/18 05/03/18 05/03/18 17:20 17:28 19:00 19:40 Temp 97.9 97.9 Pulse 74 83 87 Resp 16 B/P (MAP) 111/76 (88) 124/72 100/60 (73) Pulse Ox 93 98 O2 Delivery Room Air Room Air Nasal Cannula O2 Flow Rate 2.0 05/03/18 05/03/18 05/04/18 05/04/18 20:00 23:00 03:00 07:38 Temp 97.9 98.0 97.9 98.0 Pulse 84 89 79 Resp 17 17 18 B/P (MAP) 130/78 (95) 100/61 (74) 126/78 (94) Pulse Ox 100 95 100 O2 Delivery Nasal Cannula Nasal Cannula Nasal Cannula Nasal Cannula O2 Flow Rate 3.0 2.0 2.0 2.0 05/04/18 05/04/18 05/04/18 08:00 09:19 11:02 Temp 97.8 97.8 Pulse 79 82 Resp 19 B/P (MAP) 126/78 132/84 (100) Pulse Ox 96 O2 Delivery Nasal Cannula Room Air O2 Flow Rate 3.0 Intake and Output 05/03/18 05/03/18 05/04/18 15:01 23:01 07:01 Intake Total 500 ml 200 ml Balance 500 ml 200 ml ELISSA ANTON III DO May 04, 2018 11:34
[2018-05-04 12:02] VITALS: BP 132/84
--- NOTE | 2018-05-04 13:43 | NUR ---
Discharge Note: SANTIAGO CROUCH [address] [place] [address] Discharge instructions and discharge home medications reviewed with Patient and a copy given. All questions have been answered and understanding verbalized. The following instructions and handouts were given: Diet, activity, medication list and follow up instructions provided to patient. Patient also given specific CHF instructions including 2L fluid restriction, symptoms, daily weights, diet, no smoking and no alcohol use. Patient stated understanding and is aware of follow up instructions. Also educated on post port placement care. New medications gone over with patient and patient instructed to stop taking zetia. Discontinued lines and drains: Peripheral IV discontinued and catheter intact. Patient discharged to Home or Self Care with Family Member via Ambulated
[2018-05-04] MEDS ORDERED: ATORVASTATIN CALCIUM 10 MG TABLET. PO SCH (21:00)
--- NOTE | 2018-05-26 12:18 | DS ---
DATE OF DISCHARGE: 05/04/2018 ADMISSION DIAGNOSES: Hypoxia, dilated cardiomyopathy, shortness of breath. DISCHARGE DIAGNOSES: Colon cancer, resolving shortness of breath, resolving hypoxia, dilated cardiomyopathy. HOSPITAL COURSE: The patient is a pleasant 68-year-old male who presented with shortness of breath and had a history of dilated cardiomyopathy. He was admitted. We gave him IV Lasix and breathing treatments. We consulted Pulmonary, Cardiology and eventually, he did better. He was started on chemo for colon cancer as well. Over the next few days, he did better. We discharged to home with close outpatient followup. DISPOSITION: Home. ACTIVITY: As tolerated. DIET: Low sodium. MEDICATIONS: Please see MRAD. TOTAL TIME ON DISCHARGE: 31 minutes. ELISSA ANTON DO DR: VERO/prince JOB#: [id number] / [id number]
== END 2018-05-04 13:30 | disposition home or self-care (01) | DRG 871 ==
LOC: ER 01:32 → EEVIPCON 02:00 → OBSVTOIN 02:00 → INTOOBSV 02:00 → 2 NORTH 02:00 → 1 WEST ICU 05:33 → 6 SOUTH 04-30 15:55
PROVIDERS: ADMIT Internal Medicine; ATTEND Internal Medicine
PROC: 5A1945Z Respiratory Ventilation, 24-96 Consecutive Hours (ICD-10-PCS; principal; 2018-04-28)
PROC: 0BH17EZ Insertion of Endotracheal Airway into Trachea, Via Natural or Artificial Opening (ICD-10-PCS; 2018-04-28)
PROC: 5A09357 Assistance with Respiratory Ventilation, Less than 24 Consecutive Hours, Continuous Positive Airway Pressure (ICD-10-PCS; 2018-04-28)
PROC: 0JPT0WZ Removal of Totally Implantable Vascular Access Device from Trunk Subcutaneous Tissue and Fascia, Open Approach (ICD-10-PCS; 2018-04-30)
PROC: 0JH63WZ Insertion of Totally Implantable Vascular Access Device into Chest Subcutaneous Tissue and Fascia, Percutaneous Approach (ICD-10-PCS; 2018-05-04)
PROC: 02H633Z Insertion of Infusion Device into Right Atrium, Percutaneous Approach (ICD-10-PCS; 2018-05-04)
PROC: B2141ZZ Fluoroscopy of Right Heart using Low Osmolar Contrast (ICD-10-PCS; 2018-05-04)
PROC: B244ZZZ Ultrasonography of Right Heart (ICD-10-PCS; 2018-05-04)
DX: A41.9 Sepsis, unspecified organism (principal); R65.21 Severe sepsis with septic shock; J96.01 Acute respiratory failure with hypoxia; J18.9 Pneumonia, unspecified organism; I50.43 Acute on chronic combined systolic (congestive) and diastolic (congestive) heart failure; J96.02 Acute respiratory failure with hypercapnia; I21.A1 Myocardial infarction type 2; J44.0 Chronic obstructive pulmonary disease with (acute) lower respiratory infection; C18.9 Malignant neoplasm of colon, unspecified; C78.7 Secondary malignant neoplasm of liver and intrahepatic bile duct; I13.0 Hypertensive heart and chronic kidney disease with heart failure and stage 1 through stage 4 chronic kidney disease, or unspecified chronic kidney disease; I42.9 Cardiomyopathy, unspecified; J44.1 Chronic obstructive pulmonary disease with (acute) exacerbation; E78.5 Hyperlipidemia, unspecified; I95.9 Hypotension, unspecified; M19.90 Unspecified osteoarthritis, unspecified site; R31.9 Hematuria, unspecified; F14.90 Cocaine use, unspecified, uncomplicated; F17.210 Nicotine dependence, cigarettes, uncomplicated; F12.90 Cannabis use, unspecified, uncomplicated; I25.10 Atherosclerotic heart disease of native coronary artery without angina pectoris; N18.9 Chronic kidney disease, unspecified; I25.2 Old myocardial infarction; Z82.49 Family history of ischemic heart disease and other diseases of the circulatory system; Z85.038 Personal history of other malignant neoplasm of large intestine; Z92.21 Personal history of antineoplastic chemotherapy; Z85.05 Personal history of malignant neoplasm of liver; Z45.2 Encounter for adjustment and management of vascular access device
CPT/HCPCS: 31500; 36415; 36561; 36590; 36600; 51702; 71045; 71250; 74176; 76937; 77001; 80048; 80053; 80307; 82805; 82962; 83605; 83735; 83880; 84484; 85007; 85025; 85027; 85520; 85610; 85730; 87040; 87493; 87641; 87804; 93005; 93306; 93970; 94003; 94618; 94640; 94660; 96365; 96366; 96375; 96376; 99152; 99153; C1751; C1892; J0330; J0696; J1644; J1940; J1953; J1956; J2250; J2543; J2704; J3010; J3490; J7030; J7040; J7620; 99285-25; G0378

== ENCOUNTER 2019-11-16 04:20 | Inpatient (IN) | payer MEDICARE, MEDICAID ==
[~2019-11-16] VITALS: Ht 162.6 cm; Wt 86.1 kg
[~2019-11-16 04:20] MED LIST changes: -EZET10TA18 PO; +EZET10TA20 PO; +NAPR-695 PO
--- NOTE | 2019-11-16 04:27 | PHYS DOC ---
Past Medical History Past Medical History: CAD Additional Past Medical Histor: LIVER CA, COLON CA. Past Surgical History: No Surgical History Additional Past Surgical Histo: PORT PLACEMENT WITHIN 3 MONTHS. Smoking Status: Former Smoker Alcohol Use: None Drug Use: Cocaine, Marijuana General Adult EDM: Chief Complaint: SHORTNESS OF BREATH HPI: HPI: Patient is a 69-year-old very unfortunate male with a history of coronary disease congestive heart failure and stage IV colon cancer who is currently undergoing chemotherapy. He presents tonight via EMS after an acute onset of shortness of breath. He describes shortness of breath dyspnea on exertion and pronounced orthopnea. He does take Eliquis. He denies any chest pain nausea vomiting. He denies any fever chills or sweats. He is recently had a procedure with a negative COVID screen. [] Review of Systems: Review of Systems: Constitutional: Denies fever or chills. [] Eyes: Denies change in visual acuity. [] HENT: Denies nasal congestion or sore throat. [] Respiratory: Per HPI. [] Cardiovascular: Denies chest pain or edema. [] GI: Denies abdominal pain, nausea, vomiting, bloody stools or diarrhea. [] : Denies dysuria. [] Musculoskeletal: Denies back pain or joint pain. [] Integument: Denies rash. [] Neurologic: Denies headache, focal weakness or sensory changes. [] Endocrine: Denies polyuria or polydipsia. [] Lymphatic: Denies swollen glands. [] Psychiatric: Reports anxiety [] Heart Score: Risk Factors: Risk Factors: DM, Current or recent (<one month) smoker, HTN, HLP, family history of CAD, obesity. Risk Scores: Score 0 - 3: 2.5% MACE over next 6 weeks - Discharge Home Score 4 - 6: 20.3% MACE over next 6 weeks - Admit for Clinical Observation Score 7 - 10: 72.7% MACE over next 6 weeks - Early Invasive Strategies Allergies: Allergies: Allergies Coded Allergies Type Severity Reaction Last Updated Verified No Known Drug Allergies 03/08/18 No Physical Exam: PE: Constitutional: Well developed, well nourished, no acute distress, non-toxic appearance. [] HENT: Normocephalic, atraumatic, bilateral external ears normal, oropharynx moist, no oral exudates, nose normal. [] Eyes: PERRLA, EOMI, conjunctiva normal, no discharge. [] Neck: Normal range of motion, no tenderness, supple, no stridor. [] Cardiovascular: Tachycardic no obvious murmur [] Lungs & Thorax: Bilateral breath sounds clear to auscultation [] Abdomen: Bowel sounds normal, soft, no tenderness, no masses, no pulsatile masses. [] Skin: Warm, dry, no erythema, no rash. [] Back: No tenderness, no CVA tenderness. [] Extremities: No tenderness, no cyanosis, no clubbing, ROM intact, no edema. [] Neurologic: Alert and oriented X 3, normal motor function, normal sensory function, no focal deficits noted. [] Psychologic: Affect normal, judgement normal, mood normal. [] EKG: EKG: [EKG: Sinus tachycardia rate of [address]-T changes] Radiology/Procedures: Radiology/Procedures: [] Impression: REASON: shortness of breath PROCEDURE: CHEST AP ONLY Chest AP portable at 0425: Reason for examination: Short of breath. Comparison is made to previous study dated 05/02/2018. Port-A-Cath is present on the left with the tip in the superior vena cava near the right atrial junction. The heart size is borderline enlarged. Mediastinum is unremarkable. Lung wilson show some mild prominence of the pulmonary vasculature and interstitium and these changes may reflect some pulmonary edema. No consolidated infiltrates or pleural effusions are seen. No acute bony abnormalities are evident. IMPRESSION: Borderline cardiomegaly with mild prominence of the pulmonary vasculature and interstitium. These changes may reflect some mild interstitial pulmonary edema. Course & Med Decision Making: Course & Med Decision Making Pertinent Labs and Imaging studies reviewed. (See chart for details) [ED course: Evaluation reveals a 69-year-old male with acute onset of shortness of breath. His BNP was elevated to greater than 5000 and his chest x-ray showed evidence of congestive heart failure. He was given IV Lasix during his stay in the department he did begin to diurese. We will go ahead and admit him for further diuresis to the hospitalist service. Joson Disclaimer: Bello Disclaimer: This electronic medical record was generated, in whole or in part, using a voice recognition dictation system. Departure Departure Impression: Primary Impression: CHF (congestive heart failure) Qualified Codes: I50.23 - Acute on chronic systolic (congestive) heart failure Disposition: 09 ADMITTED INPATIENT Admitting Physician: VERONIKA Condition: GUARDED Referrals: MARIYA LOPEZ MD (PCP) Justicifation of Admission Dx: Justifications for Admission: Justification of Admission Dx: Yes CHF: Sev. Electrolyte Abnormal BALA GOULD DO Nov 16, 2019 04:27
[2019-11-16] MEDS ORDERED: FUROSEMIDE 40 MG/4 ML VIAL. IVP ONE ×2 (04:45→14:00)
[2019-11-16 04:48] LABS: BASO % 0 % (0-3); EOS # 0.1 x10^3/uL (0.0-0.7); EOS % 2 % (0-3); HEMATOCRIT 36.7 % (39.0-53.0); LYMPH # 1.7 x10^3/uL (1.0-4.8); LYMPH % 27 % (24-48); MEAN CORPUSCULAR HEMOGLOBIN 33 pg (25-35); MEAN CORPUSCULAR HGB CONC 33 g/dL (31-37); MEAN CORPUSCULAR VOLUME 102 fL (79-100); MONO % 15 % (0-9); NEUT # 3.6 x10^3/uL (1.8-7.7); NEUT % 56 % (31-73); PLATELET COUNT 152 x10^3/uL (140-400); RED CELL DISTRIBUTION WIDTH 18.9 % (11.5-14.5); WHITE BLOOD COUNT 6.4 x10^3/uL (4.0-11.0)
[2019-11-16 05:01] LABS: CALCIUM 8.2 mg/dL (8.5-10.1); CREATININE 1.6 mg/dL (0.7-1.3); GFR 52.3; POTASSIUM 4.3 mmol/L (3.5-5.1)
[2019-11-16 05:06] LABS: ALBUMIN 3.4 g/dL (3.4-5.0); ALBUMIN/GLOBULIN RATIO 0.9 (1.0-1.7); MAGNESIUM 1.6 mg/dL (1.8-2.4); TOTAL BILIRUBIN 0.9 mg/dL (0.2-1.0); TOTAL PROTEIN 7.1 g/dL (6.4-8.2)
--- NOTE | 2019-11-16 05:14 | RAD ---
Chest AP portable at 0425: Reason for examination: Short of breath. Comparison is made to previous study dated 05/02/2018. Port-A-Cath is present on the left with the tip in the superior vena cava near the right atrial junction. The heart size is borderline enlarged. Mediastinum is unremarkable. Lung wilson show some mild prominence of the pulmonary vasculature and interstitium and these changes may reflect some pulmonary edema. No consolidated infiltrates or pleural effusions are seen. No acute bony abnormalities are evident. IMPRESSION: Borderline cardiomegaly with mild prominence of the pulmonary vasculature and interstitium. These changes may reflect some mild interstitial pulmonary edema. Electronically signed by: Paloma Whitley MD (11/16/2019 5:10 AM) [id number]
[2019-11-16] MEDS ORDERED: ONDANSETRON PF 4 MG/2 ML VIAL. IV PRN (05:45)
--- NOTE | 2019-11-16 06:27 | EKG ---
[facility] [address] [place] [address] Test Date: 2019-11-16 Test Time: 04:29:56 Pat Name: SANTIAGO CROUCH Department: Room: Gender: Safety Person: [id number] : [id number] Requested By: BALA GOULD Order Number: [id number] Reading MD: Measurements Intervals [place] Rate: 123 P: [place]: QRS: 4 QRSD: 88 T: 81 QT: 350 QTc: 507 Interpretive Statements IRREGULAR RHYTHM, NO P-WAVE FOUND R-S TRANSITION ZONE IN V LEADS DISPLACED TO THE LEFT LOW LIMB LEAD VOLTAGE QRS(T) CONTOUR ABNORMALITY CONSIDER ANTEROSEPTAL MYOCARDIAL DAMAGE T ABNORMALITY IN ANTERIOR LEADS ABNORMAL ECG RI6.01 No previous ECG available for comparison
[2019-11-16 07:00] VITALS: BP 154/100
[2019-11-16] MEDS ORDERED: MAGNESIUM SULFATE 2GM 50 ML IV ONE (09:30)
[2019-11-16 09:33] LABS: CHOLESTEROL/HDL RATIO 3.4
--- NOTE | 2019-11-16 10:22 | PDOC2 ---
RL SAEZ PRINCIPAL LAW CLERK 11/16/19 1022: CARDIAC CONSULT DATE OF CONSULT Date of Consult DATE: 11/16/19 TIME: 10:00 REASON FOR CONSULT Reason for Consult: CHF REFERRING PHYSICIAN Referring Physician: Dr. Mendoza SOURCE Source: Chart review, Patient HISTORY OF PRESENT ILLNESS HISTORY OF PRESENT ILLNESS This is a 69 yo male, with a history of CAD, CHF, ICM with LVEF 20-25%, and colon CA with mets to the liver treated with chemotherapy, who presented secondary to shortness of breath. Patient reports he has noticed some mild shortness of breath the last couple of days. Much worse yesterday. No LE edema. No chest pain, palpitations, dizziness, diaphoresis, or nausea/vomiting. Reports 10# weight gain over the last 3 weeks. Is currently on 2 month breath from chemotherapy. Is to resume in December. Reports high Na intake diet. Is not on diuretic therapy at home. PAST MEDICAL HISTORY Past Medical History Cardiovascular: CAD, HTN, Hyperlipidemia, CHF, NICM Pulmonary: No pertinent hx CENTRAL NERVOUS SYSTEM: Seizure GI: metastatic colon CA Heme/Onc: No pertinent hx Hepatobiliary: No pertinent hx Psych: No pertinent hx Musculoskeletal: Osteoarthritis Rheumatologic: No pertinent hx Infectious disease: No pertinent hx ENT: No pertinent hx Renal/: CKD Endocrine: No pertinent hx Dermatology: No pertinent hx PAST SURGICAL HISTORY Past Surgical History Other (colectomy) FAMILY HISTORY Family History: Hypertension SOCIAL HISTORY Social History Smoke: <1 pack per day (>40 yrs) ALCOHOL: h/o heavy (quit) Drugs: h/o use (quit) Lives: with Family CURRENT MEDICATIONS CURRENT MEDICATIONS Current Medications Medications (Trade) Dose Ordered Sig/Karina Route PRN Reason Start Time Stop Time Status Last Admin Dose Admin Furosemide (Lasix) 80 mg 1X ONCE IVP 11/16/19 04:45 11/16/19 04:46 DC 11/16/19 05:23 Magnesium Sulfate 50 ml @ 25 mls/hr 1X ONCE IV 11/16/19 09:30 11/16/19 11:29 11/16/19 09:39 ALLERGIES ALLERGIES: Coded Allergies: No Known Drug Allergies (Unverified , 03/08/18) ROS Review of System 14 point ROS conducted with pertinent positives noted above in HPI PHYSICAL EXAM General: Alert, Oriented X3, Cooperative, No acute distress HEENT: Atraumatic, Mucous membr. moist/pink Lungs: Other (fine bibasilar crackles) Heart: Regular rate, Other (2/6 systolic function) Abdomen: Soft, No tenderness Extremities: No edema, Normal pulses Skin: No significant lesion Neuro: Normal speech, Sensation intact Psych/Mental Status: Mental status NL, Mood NL MUSCULOSKELETAL: Osteoarthritic changes both hands VITALS/I&O VITALS/I&O: Vital Signs Date Time Temp Pulse Resp B/P (MAP) Pulse Ox O2 Delivery O2 Flow Rate FiO2 11/16/19 07:00 98.3 88 18 154/100 (118) 100 Room Air 98.3 LABS Lab: Laboratory Tests Test 11/16/19 04:40 11/16/19 07:48 White Blood Count 6.4 x10^3/uL (4.0-11.0) Red Blood Count 3.60 x10^6/uL (4.30-5.70) L Hemoglobin 12.0 g/dL (13.0-17.5) L Hematocrit 36.7 % (39.0-53.0) L Mean Corpuscular Volume 102 fL (79-100) H Mean Corpuscular Hemoglobin 33 pg (25-35) Mean Corpuscular Hemoglobin Concent 33 g/dL (31-37) Red Cell Distribution Width 18.9 % (11.5-14.5) H Platelet Count 152 x10^3/uL (140-400) Neutrophils (%) (Auto) 56 % (31-73) Lymphocytes (%) (Auto) 27 % (24-48) Monocytes (%) (Auto) 15 % (0-9) H Eosinophils (%) (Auto) 2 % (0-3) Basophils (%) (Auto) 0 % (0-3) Neutrophils # (Auto) 3.6 x10^3/uL (1.8-7.7) Lymphocytes # (Auto) 1.7 x10^3/uL (1.0-4.8) Monocytes # (Auto) 1.0 x10^3/uL (0.0-1.1) Eosinophils # (Auto) 0.1 x10^3/uL (0.0-0.7) Basophils # (Auto) 0.0 x10^3/uL (0.0-0.2) Sodium Level 140 mmol/L (136-145) Potassium Level 4.3 mmol/L (3.5-5.1) Chloride Level 106 mmol/L (98-107) Carbon Dioxide Level 24 mmol/L (21-32) Anion Gap 10 (6-14) Blood Urea Nitrogen 14 mg/dL (8-26) Creatinine 1.6 mg/dL (0.7-1.3) H Estimated GFR (Cockcroft-Gault) 52.3 BUN/Creatinine Ratio 9 (6-20) Glucose Level 171 mg/dL (70-99) H Calcium Level 8.2 mg/dL (8.5-10.1) L Magnesium Level 1.6 mg/dL (1.8-2.4) L Total Bilirubin 0.9 mg/dL (0.2-1.0) Aspartate Amino Transferase (AST) 53 U/L (15-37) H Alanine Aminotransferase (ALT) 51 U/L (16-63) Alkaline Phosphatase 120 U/L (46-116) H Troponin I Quantitative 0.072 ng/mL (0.000-0.055) ZB-Eit-L-Type Natriuretic Peptide 5590 pg/mL (0-124) H Total Protein 7.1 g/dL (6.4-8.2) Albumin 3.4 g/dL (3.4-5.0) Albumin/Globulin Ratio 0.9 (1.0-1.7) L Triglycerides Level 132 mg/dL (0-150) Cholesterol Level 132 mg/dL (0-200) LDL Cholesterol, Calculated 67 mg/dL (0-100) VLDL Cholesterol, Calculated 26 mg/dL (0-40) Non-HDL Cholesterol Calculated 93 mg/dL (0-129) HDL Cholesterol 39 mg/dL (40-60) L Cholesterol/HDL Ratio 3.4 Thyroid Stimulating Hormone (TSH) 4.289 uIU/mL (0.358-3.74) H Glucose (Fingerstick) 96 mg/dL (70-99) Laboratory Tests 11/16/19 04:40 Laboratory Tests 11/16/19 04:40 ECHOCARDIOGRAM ECHOCARDIOGRAM <Conclusion> The Left Ventricle is moderately dilated. The systolic function is severely impaired. The Ejection Fraction is 20-25%. There is global hypokinesis of the left ventricle. No significant valvular disease. DATE: 02/23/181008 <Conclusion> Left ventricle ejection fraction is severely impaired. The Ejection Fraction is 15%. Doppler and Color-flow revealed mild mitral regurgitation. There is no evidence of significant pericardial effusion. DATE: 04/28/18 1237 ASSESSMENT/PLAN ASSESSMENT/PLAN 1. Dyspnea with a/c systolic CHF and AE COPD. 2. Acute on chronic systolic HF with NICM; LVEF 15%. Improved s/p IV Lasix 3. Mild troponin elevation; initial trop 0.072. Most probably type II demand ischemia 4. Accelerated hypertension, POA. Now controlled 5. CAD; non-obstructive. 06/2017 LHC 30% to LAD lesion, LCx no occlusion, ramus occluded, RCA with 30-40% proximal lesion. 6. Colon CA with liver metastasis 7. CKD 8. Hyperlipidemia; LD 67 9. Hypomagnesemia ; replaced 10. Hx of seizures 11. Hx of substance abuse 12. Hypothyroidism Recommendations Trend troponin Diuresis with monitoring of renal function Resume ASA, Coreg, lisinopril, and statin therapy Discussed 2Gm Na dietary restriction. 2000cc FR May need low-dose Lasix upon discharge Supportive care DAVID MEDELLIN MD 11/16/19 1818: CARDIAC CONSULT ASSESSMENT/PLAN ASSESSMENT/PLAN Pt. seen and examined. Agree with above TRANSPLANT REGISTERED NURSE note. Supportive care. Poor long goods drier prognosis. RL SAEZ APRN Nov 16, 2019 10:22 DAVID MEDELLIN MD Nov 16, 2019 18:18
[2019-11-16 10:36] LABS: BILIRUBIN,URINE NEGATIVE (NEG); CLARITY,URINE CLEAR; COLOR,URINE YELLOW; NITRITE,URINE NEGATIVE (NEG); PH,URINE 6.5 (<5.0-8.0); PROTEIN,URINE NEGATIVE (NEG-TRACE); UROBILINOGEN,URINE 0.2 mg/dL (0.2 mg/dL)
[2019-11-16] MEDS ORDERED: ATOR20TA58 PO (10:36)
[2019-11-16] MEDS ORDERED: METF500T16 PO (10:36)
[2019-11-16] MEDS ORDERED: TAMS0.4C97 PO (10:36)
[2019-11-16] MEDS ORDERED: LISI-334 PO (10:36)
[2019-11-16] MEDS ORDERED: APIX2.5T PO (10:36)
--- NOTE | 2019-11-16 10:39 | NUR ---
SS following for discharge planning. SS reviewed pt chart and discussed with pt RN. Pt is from home and is currently on room air. Pt having cardiac work up. SS will continue to follow for discharge planning.
[2019-11-16 10:42] LABS: BARBITURATES NEG (NEG); BENZODIAZEPINES NEG (NEG); CANNABINOIDS NEG (NEG); COCAINE NEG (NEG); METHADONE NEG (NEG); OPIATES NEG (NEG); PHENCYCLIDINE NEG (NEG)
[2019-11-16 10:43] LABS: AMPHETAMINE/METHAMPHETAMINE NEG (NEG)
[2019-11-16 10:55] LABS: BACTERIA,URINE 0 /HPF (0-FEW); RBC,URINE 0 /HPF (0-2); SQUAMOUS EPITHELIAL CELL,UR FEW /LPF; WBC,URINE 0 /HPF (0-4)
[2019-11-16 11:00] VITALS: BP 146/87
[2019-11-16] MEDS ORDERED: TAMSULOSIN 0.4 MG CAP.ER.24H. PO SCH (11:30)
[2019-11-16] MEDS: EZETIMIBE 10 MG TABLET. PO SCH (12:18)
[2019-11-16] MEDS: ASPIRIN CHEWABLE 81 MG TABLET. PO SCH (12:18)
[2019-11-16] MEDS: LISINOPRIL 20 MG TABLET PO SCH (12:18)
[2019-11-16] MEDS: APIXABAN 2.5 MG TABLET. PO SCH ×2 (12:18→20:25)
[2019-11-16] MEDS: levETIRAcetam 500 MG TABLET PO SCH ×2 (12:18→20:24)
[2019-11-16] MEDS ORDERED: ANTI-COAG MONITOR BY PHARMACY. MC PRN (13:15)
--- NOTE | 2019-11-16 14:12 | PDOC1 ---
History and Physical Date of Admission: Date of Admission DATE: 11/16/19 TIME: 14:01 History of Present Illness: HPI: Patient is a 69-year-old male with past medical history of CAD, CHF with an EF of 65% and stage IV colon cancer who is currently on chemotherapy. Patient states that his last chemotherapy was about 3 weeks ago. The reason he came to the ED was because he was feeling shortness of breath early this morning at 2 AM. Patient states that he has gained about 18 pounds since starting on chemotherapy. And his PCP said that he might need to start on diuretic pills. However, this was weighed with the possible risk of renal failure. 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 Denies fevers, chest pain, abdominal pain, COVID contacts, diarrhea, dysuria. Past Medical/Surgical History: PMH/PSH: Past Medical History: CAD, LIVER CA, COLON CA. Past Surgical History: PORT PLACEMENT WITHIN 3 MONTHS. Allergies: Allergies: Coded Allergies: No Known Drug Allergies (Unverified , 03/08/18) Family History: Family History: Reviewed and none reported Social History: Social History: Smoking Status: Former Smoker Alcohol Use: None Drug Use: Cocaine, Marijuana quit when he found that he had colon cancer Current Medications: Current Medications Current Medications Furosemide (Lasix) 80 mg 1X ONCE IVP Last administered on 11/16/19at 05:23; Start 11/16/19 at 04:45; Stop 11/16/19 at 04:46; Status DC Ondansetron HCl (Zofran) 4 mg PRN Q8HRS PRN IV NAUSEA/VOMITING; Start 11/16/19 at 05:45; Stop 11/17/19 at 05:44 Magnesium Sulfate 50 ml @ 25 mls/hr 1X ONCE IV Last administered on 11/16/19at 09:39; Start 11/16/19 at 09:30; Stop 11/16/19 at 11:29; Status DC Aspirin (Aspirin Chewable) 81 mg DAILY PO Last administered on 11/16/19at 12:18; Start 11/16/19 at 11:00 Carvedilol (Coreg) 3.125 mg BIDWMEALS PO ; Start 11/16/19 at 17:00 EZETIMIBE (Zetia) 10 mg DAILY PO Last administered on 11/16/19at 12:18; Start 11/16/19 at 11:00 Apixaban (Eliquis) 2.5 mg BID PO Last administered on 11/16/19at 12:18; Start 11/16/19 at 11:30 Atorvastatin Calcium (Lipitor) 20 mg QHS PO ; Start 11/17/19 at 21:00 Levetiracetam (Keppra) 500 mg BID PO Last administered on 11/16/19at 12:18; Start 11/16/19 at 11:30 Lisinopril (Prinivil) 20 mg DAILY PO Last administered on 11/16/19at 12:18; Start 11/16/19 at 11:30 Metformin HCl (Glucophage) 500 mg BIDWMEALS PO ; Start 11/16/19 at 17:00 Tamsulosin HCl (Flomax) 0.4 mg DAILY PO ; Start 11/16/19 at 11:30; Stop 11/16/19 at 13:07; Status DC Tamsulosin HCl (Flomax) 0.4 mg QHS PO ; Start 11/16/19 at 21:00 Info (Anti-Coagulation Monitoring By Pharmacy) 1 each PRN DAILY PRN MC SEE COMMENTS; Start 11/16/19 at 13:15 Furosemide (Lasix) 40 mg 1X ONCE IVP ; Start 11/16/19 at 14:00; Stop 11/16/19 at 14:01 Active Scripts Active Reported Eliquis (Apixaban) 2.5 Mg Tablet 2.5 Mg PO DAILY Metformin Hcl 500 Mg Tablet 500 Mg PO BIDWMEALS Atorvastatin Calcium 20 Mg Tablet 1 Tab PO DAILY Lisinopril 20 Mg Tablet 1 Tab PO DAILY Flomax (Tamsulosin Hcl) 0.4 Mg Cap.er.24h 1 Cap PO DAILY Naproxen 375 Mg Tablet 1 Tab PO BID Zofran (Ondansetron Hcl) 8 Mg Tablet 1 Tab PO Q8HRS Zetia (Ezetimibe) 10 Mg Tablet 1 Tab PO DAILY Folic Acid 1 Mg Tablet 1 Tab PO DAILY Aspirin 81 Mg Tab.chew 1 Tab PO DAILY Carvedilol (Carvedilol) 3.125 Mg Tablet 1 Tab PO BID Levetiracetam 500 Mg Tablet 1 Tab PO BID ROS: Review of Systems Review of System REVIEW OF SYSTEMS: GENERAL: Denies weakness SKIN: No bruising, hair changes or rashes. EYES: No blurred, double or loss of vision. NOSE AND THROAT: No history of nosebleeds, hoarseness or sore throat. HEART: No history of palpitations, chest pain or shortness of breath on exertion. LUNGS: Denies cough, hemoptysis, wheezing or shortness of breath. GASTROINTESTINAL: Denies changes in appetite, nausea, vomiting, diarrhea or constipation. GENITOURINARY: No history of frequency, urgency, hesitancy or nocturia. NEUROLOGIC: Denies history of numbness, tingling, or tremor. PSYCHIATRIC: No history of panic, anxiety or depression. ENDOCRINE: No history of heat or cold intolerance, polyuria or polydipsia. EXTREMITIES: Denies joint pain, pain on walking or stiffness. Physical Exam: Vital Signs: Vital Signs Date Time Temp Pulse Resp B/P (MAP) Pulse Ox O2 Delivery O2 Flow Rate FiO2 11/16/19 12:18 91 146/87 11/16/19 11:00 98.7 18 98 Room Air 98.7 Physcial Exam: GEN: No apparent distress. Alert and oriented HEENT: Normal cephalic, atraumatic, external auditory canals are patent EYES: Extraocular muscles are intact, pupil are equally round and reactive to light and accommodation MUSCULOSKELETAL: Well developed , well nourished, good range of motion ENDOCRINE: No thyromegaly was palpated LYMPHATICS: No cervical chain or axillary nodes were noted HEMATOPOIETIC: No bruising NECK: Supple, no JVD, no thyromegaly was noted LUNGS: Clear to auscultation in all lung wilson without rhonchi or wheezing HEART: RRR, S!, S2 present. Peripheral pulses intact, no obvious murmurs noted ABDOMEN: Soft, nontender. Positive bowel sounds, no organomegaly, normal bowel sounds EXTREMITIES: Without clubbing, cyanosis, or edema. Pedal pulses intact. Negative Homans sign NEUROLOGIC: Normal speech and tone. A&O x 3, moves all extremities, no obvious focal deficits PSYCHIATRIC: Normal affect, normal mood. Stable SKIN: No ulcerations or rashes, good skin turgor, no jaundice VASCULAR: Good capillary refill, neurovascular bundle appears to be intact Labs: Labs: Laboratory Tests Test 11/16/19 04:40 11/16/19 07:48 11/16/19 08:40 11/16/19 09:30 White Blood Count 6.4 x10^3/uL (4.0-11.0) Red Blood Count 3.60 x10^6/uL (4.30-5.70) Hemoglobin 12.0 g/dL (13.0-17.5) Hematocrit 36.7 % (39.0-53.0) Mean Corpuscular Volume 102 fL (79-100) Mean Corpuscular Hemoglobin 33 pg (25-35) Mean Corpuscular Hemoglobin Concent 33 g/dL (31-37) Red Cell Distribution Width 18.9 % (11.5-14.5) Platelet Count 152 x10^3/uL (140-400) Neutrophils (%) (Auto) 56 % (31-73) Lymphocytes (%) (Auto) 27 % (24-48) Monocytes (%) (Auto) 15 % (0-9) Eosinophils (%) (Auto) 2 % (0-3) Basophils (%) (Auto) 0 % (0-3) Neutrophils # (Auto) 3.6 x10^3/uL (1.8-7.7) Lymphocytes # (Auto) 1.7 x10^3/uL (1.0-4.8) Monocytes # (Auto) 1.0 x10^3/uL (0.0-1.1) Eosinophils # (Auto) 0.1 x10^3/uL (0.0-0.7) Basophils # (Auto) 0.0 x10^3/uL (0.0-0.2) Sodium Level 140 mmol/L (136-145) Potassium Level 4.3 mmol/L (3.5-5.1) Chloride Level 106 mmol/L (98-107) Carbon Dioxide Level 24 mmol/L (21-32) Anion Gap 10 (6-14) Blood Urea Nitrogen 14 mg/dL (8-26) Creatinine 1.6 mg/dL (0.7-1.3) Estimated GFR (Cockcroft-Gault) 52.3 BUN/Creatinine Ratio 9 (6-20) Glucose Level 171 mg/dL (70-99) Calcium Level 8.2 mg/dL (8.5-10.1) Magnesium Level 1.6 mg/dL (1.8-2.4) Total Bilirubin 0.9 mg/dL (0.2-1.0) Aspartate Amino Transf (AST/SGOT) 53 U/L (15-37) Alanine Aminotransferase (ALT/SGPT) 51 U/L (16-63) Alkaline Phosphatase 120 U/L (46-116) Troponin I Quantitative 0.072 ng/mL (0.000-0.055) 0.109 ng/mL (0.000-0.055) HM-Tal-S-Type Natriuretic Peptide 5590 pg/mL (0-124) Total Protein 7.1 g/dL (6.4-8.2) Albumin 3.4 g/dL (3.4-5.0) Albumin/Globulin Ratio 0.9 (1.0-1.7) Triglycerides Level 132 mg/dL (0-150) Cholesterol Level 132 mg/dL (0-200) LDL Cholesterol, Calculated 67 mg/dL (0-100) VLDL Cholesterol, Calculated 26 mg/dL (0-40) Non-HDL Cholesterol Calculated 93 mg/dL (0-129) HDL Cholesterol 39 mg/dL (40-60) Cholesterol/HDL Ratio 3.4 Thyroid Stimulating Hormone (TSH) 4.289 uIU/mL (0.358-3.74) Glucose (Fingerstick) 96 mg/dL (70-99) Urine Collection Type Unknown Urine Color Yellow Urine Clarity Clear Urine pH 6.5 (<5.0-8.0) Urine Specific [place] <=1.005 (1.000-1.030) Urine Protein Negative mg/dL (NEG-TRACE) Urine Glucose (UA) Negative mg/dL (NEG) Urine Ketones (Stick) Negative mg/dL (NEG) Urine Blood Negative (NEG) Urine Nitrite Negative (NEG) Urine Bilirubin Negative (NEG) Urine Urobilinogen Dipstick 0.2 mg/dL (0.2 mg/dL) Urine Leukocyte Esterase Negative (NEG) Urine RBC 0 /HPF (0-2) Urine WBC 0 /HPF (0-4) Urine Squamous Epithelial Cells Few /LPF Urine Bacteria 0 /HPF (0-FEW) Urine Mucus Mod /LPF Urine Opiates Screen Neg (NEG) Urine Methadone Screen Neg (NEG) Urine Barbiturates Neg (NEG) Urine Phencyclidine Screen Neg (NEG) Urine Amphetamine/Methamphetamine Neg (NEG) Urine Benzodiazepines Screen Neg (NEG) Urine Cocaine Screen Neg (NEG) Urine Cannabinoids Screen Neg (NEG) Urine Ethyl Alcohol Neg (NEG) Test 11/16/19 12:02 Glucose (Fingerstick) 88 mg/dL (70-99) Laboratory Tests Test 11/16/19 04:40 11/16/19 07:48 11/16/19 08:40 11/16/19 09:30 White Blood Count 6.4 x10^3/uL (4.0-11.0) Red Blood Count 3.60 x10^6/uL (4.30-5.70) Hemoglobin 12.0 g/dL (13.0-17.5) Hematocrit 36.7 % (39.0-53.0) Mean Corpuscular Volume 102 fL (79-100) Mean Corpuscular Hemoglobin 33 pg (25-35) Mean Corpuscular Hemoglobin Concent 33 g/dL (31-37) Red Cell Distribution Width 18.9 % (11.5-14.5) Platelet Count 152 x10^3/uL (140-400) Neutrophils (%) (Auto) 56 % (31-73) Lymphocytes (%) (Auto) 27 % (24-48) Monocytes (%) (Auto) 15 % (0-9) Eosinophils (%) (Auto) 2 % (0-3) Basophils (%) (Auto) 0 % (0-3) Neutrophils # (Auto) 3.6 x10^3/uL (1.8-7.7) Lymphocytes # (Auto) 1.7 x10^3/uL (1.0-4.8) Monocytes # (Auto) 1.0 x10^3/uL (0.0-1.1) Eosinophils # (Auto) 0.1 x10^3/uL (0.0-0.7) Basophils # (Auto) 0.0 x10^3/uL (0.0-0.2) Sodium Level 140 mmol/L (136-145) Potassium Level 4.3 mmol/L (3.5-5.1) Chloride Level 106 mmol/L (98-107) Carbon Dioxide Level 24 mmol/L (21-32) Anion Gap 10 (6-14) Blood Urea Nitrogen 14 mg/dL (8-26) Creatinine 1.6 mg/dL (0.7-1.3) Estimated GFR (Cockcroft-Gault) 52.3 BUN/Creatinine Ratio 9 (6-20) Glucose Level 171 mg/dL (70-99) Calcium Level 8.2 mg/dL (8.5-10.1) Magnesium Level 1.6 mg/dL (1.8-2.4) Total Bilirubin 0.9 mg/dL (0.2-1.0) Aspartate Amino Transf (AST/SGOT) 53 U/L (15-37) Alanine Aminotransferase (ALT/SGPT) 51 U/L (16-63) Alkaline Phosphatase 120 U/L (46-116) Troponin I Quantitative 0.072 ng/mL (0.000-0.055) 0.109 ng/mL (0.000-0.055) ES-Qsr-P-Type Natriuretic Peptide 5590 pg/mL (0-124) Total Protein 7.1 g/dL (6.4-8.2) Albumin 3.4 g/dL (3.4-5.0) Albumin/Globulin Ratio 0.9 (1.0-1.7) Triglycerides Level 132 mg/dL (0-150) Cholesterol Level 132 mg/dL (0-200) LDL Cholesterol, Calculated 67 mg/dL (0-100) VLDL Cholesterol, Calculated 26 mg/dL (0-40) Non-HDL Cholesterol Calculated 93 mg/dL (0-129) HDL Cholesterol 39 mg/dL (40-60) Cholesterol/HDL Ratio 3.4 Thyroid Stimulating Hormone (TSH) 4.289 uIU/mL (0.358-3.74) Glucose (Fingerstick) 96 mg/dL (70-99) Urine Collection Type Unknown Urine Color Yellow Urine Clarity Clear Urine pH 6.5 (<5.0-8.0) Urine Specific [place] <=1.005 (1.000-1.030) Urine Protein Negative mg/dL (NEG-TRACE) Urine Glucose (UA) Negative mg/dL (NEG) Urine Ketones (Stick) Negative mg/dL (NEG) Urine Blood Negative (NEG) Urine Nitrite Negative (NEG) Urine Bilirubin Negative (NEG) Urine Urobilinogen Dipstick 0.2 mg/dL (0.2 mg/dL) Urine Leukocyte Esterase Negative (NEG) Urine RBC 0 /HPF (0-2) Urine WBC 0 /HPF (0-4) Urine Squamous Epithelial Cells Few /LPF Urine Bacteria 0 /HPF (0-FEW) Urine Mucus Mod /LPF Urine Opiates Screen Neg (NEG) Urine Methadone Screen Neg (NEG) Urine Barbiturates Neg (NEG) Urine Phencyclidine Screen Neg (NEG) Urine Amphetamine/Methamphetamine Neg (NEG) Urine Benzodiazepines Screen Neg (NEG) Urine Cocaine Screen Neg (NEG) Urine Cannabinoids Screen Neg (NEG) Urine Ethyl Alcohol Neg (NEG) Test 11/16/19 12:02 Glucose (Fingerstick) 88 mg/dL (70-99) Assessment/Plan Assessment/Plan Acute respiratory distress due to acute on chronic CHF versus COPD exacerbation Acute on chronic systolic HF with NICM; LVEF 15%. Improved s/p IV Lasix Mild troponin elevation; initial trop 0.072. Most probably type II demand ischemia Accelerated hypertension, POA. Now controlled CAD; non-obstructive. 06/2017 LHC 30% to LAD lesion, LCx no occlusion, ramus occluded, RCA with 30-40% proximal lesion. Colon CA with liver metastasis completed about 24 sessions of chemotherapy CKD Hyperlipidemia; LD 67 Hypomagnesemia ; replaced Hx of seizures Hx of substance abuse Hypothyroidism Admit to medicine Trend troponin Pending echo Diuresis with monitoring of renal function Resume ASA, Coreg, lisinopril, and statin therapy Discussed 2Gm Na dietary restriction. 2000cc FR May need low-dose Lasix upon discharge Eliquis for DVT prophylaxis Cardiac diet Full code Discussed with RN and ED physician Dispo pending echo Justicifation of Admission Dx: Justifications for Admission: Justification of Admission Dx: Yes Respiratory Failure: Severe Resp Distress (A with 6 activity for and then doing you to write a prescription for you to do that okay 6 activity for rest I will drop that off a bit Much as she can go right warfarin is 24 mg in sounds good thanks bye) Acute COPD Exacerbation: Acute COPD Exacerbation MEENAKSHI COLEMAN MD Nov 16, 2019 14:12
--- NOTE | 2019-11-16 14:32 | CARD ---
MR#: [id number] Date of Study: 11/16/2019 Ordering Physician: NOE MELO, Referring Physician: NOE MELO Tech: Rosana Marcelino GALILEO APPROVED REPORT EXAM: Two-dimensional and M-mode echocardiogram with Doppler and color Doppler. Other Information Quality : Good INDICATION Congestive Heart Failure 2D DIMENSIONS RVDd1.9 (2.9-3.5cm)Left Atrium(2D)4.4 (1.6-4.0cm) IVSd0.8 (0.7-1.1cm)Aortic Root(2D)2.9 (2.0-3.7cm) LVDd7.4 (3.9-5.9cm)LVOT Diameter2.2 (1.8-2.4cm) PWd0.8 (0.7-1.1cm)LVDs7.0 (2.5-4.0cm) FS (%) 6.1 %SV38.5 ml LVEF(%)13.2 (>50%) Aortic Valve AoV Peak Sudeep.102.4cm/sAoV VTI12.6cm AO Peak GR.4.2mmHgLVOT Peak Sudeep.84.6cm/s AO Mean GR.2mmHgAVA (VMAX)3.11cm2 ANDRY (VTI)3.80cm2 Mitral Valve MV E Jpqahomt18.5cm/sMV DECEL [id number] MV A Sopnouvy49.0cm/sE/A Ratio1.5 Pulmonary Vein S1 Emhqtbpa49.7cm/sD2 Atergejx31.2cm/s LEFT VENTRICLE The Left Ventricle is severely dilated. There is normal left ventricular wall thickness. Left ventric le ejection fraction is severely impaired. The Ejection Fraction is 10-15%. There is severe global hy pokinesis of the left ventricle. Tissue Doppler imaging reveals severe left ventricular diastolic dys function. No left ventricle thrombus noted on this study. RIGHT VENTRICLE The right ventricle is normal size. The right ventricular systolic function is normal. ATRIA The left atrium is mildly dilated. The right atrium size is normal. The interatrial septum is intact with no evidence for an atrial septal defect or patent foramen ovale as noted on 2-D or Doppler imagi ng. AORTIC VALVE The aortic valve is calcified but opens well. Doppler and Color Flow revealed no significant aortic r egurgitation. There is no significant aortic valvular stenosis. MITRAL VALVE The mitral valve is calcified but opens well. There is no evidence of mitral valve prolapse. There is no mitral valve stenosis. Doppler and Color-flow revealed mild mitral regurgitation. TRICUSPID VALVE The tricuspid valve is normal in structure and function. Doppler and Color Flow revealed no tricuspid valve regurgitation noted. There is no tricuspid valve stenosis. PULMONIC VALVE Doppler and Color Flow revealed trace pulmonic valvular regurgitation. There is no pulmonic valvular stenosis. GREAT VESSELS The aortic root is normal in size. The ascending aorta is normal in size. The IVC is normal in size a nd collapses >50% with inspiration. PERICARDIAL EFFUSION There is a trace circumferential pericardial effusion. Critical Notification Critical Value: No <Conclusion> Left ventricle ejection fraction is severely impaired. The Ejection Fraction is 10-15%. There is severe global hypokinesis of the left ventricle. Doppler and Color-flow revealed mild mitral regurgitation. There is a trace circumferential pericardial effusion. Signed by : Binh Cannon, Electronically Approved : 11/16/2019 14:32:10
[2019-11-16 15:00] VITALS: BP 140/90
[2019-11-16] MEDS: metFORMIN 500 MG TABLET PO SCH (17:45)
[2019-11-16] MEDS: CARVEDILOL 3.125 MG TABLET. PO SCH (17:46)
[2019-11-16 19:00] VITALS: BP 117/74
[2019-11-16] MEDS: TAMSULOSIN 0.4 MG CAP.ER.24H. PO SCH (20:25)
[2019-11-16 23:00] VITALS: BP 123/60
[2019-11-17 03:00] VITALS: BP 106/56
[2019-11-17 07:46] VITALS: BP 114/71
[2019-11-17] MEDS: metFORMIN 500 MG TABLET PO SCH ×2 (07:48→18:14)
[2019-11-17] MEDS: EZETIMIBE 10 MG TABLET. PO SCH (07:48)
[2019-11-17] MEDS: levETIRAcetam 500 MG TABLET PO SCH ×2 (07:48→20:33)
[2019-11-17] MEDS: ASPIRIN CHEWABLE 81 MG TABLET. PO SCH (07:49)
[2019-11-17] MEDS: CARVEDILOL 3.125 MG TABLET. PO SCH ×2 (07:49→18:15)
[2019-11-17] MEDS: LISINOPRIL 20 MG TABLET PO SCH (07:49)
[2019-11-17] MEDS: APIXABAN 2.5 MG TABLET. PO SCH ×2 (07:49→20:33)
[2019-11-17 11:00] VITALS: BP 107/69
[2019-11-17 11:47] LABS: CALCIUM 8.5 mg/dL (8.5-10.1); CREATININE 1.7 mg/dL (0.7-1.3); GFR 48.7; MAGNESIUM 2.1 mg/dL (1.8-2.4); PHOSPHORUS 3.6 mg/dL (2.6-4.7); POTASSIUM 3.8 mmol/L (3.5-5.1)
--- NOTE | 2019-11-17 12:26 | NUR ---
SS following up with discharge planning. SS reviewed pt chart and discussed with pt RN. Pt is currently on room air. Discharge plan is to home when medically ready. SS will continue to follow for discharge planning.
[2019-11-17] MEDS ORDERED: POTASSIUM CHLORIDE 20 MEQ TABLET.ER. PO ONE (13:00)
[2019-11-17] MEDS ORDERED: FUROSEMIDE 40 MG/4 ML VIAL. IVP ONE (13:00)
--- NOTE | 2019-11-17 13:00 | PDOC ---
RL SAEZ WOOL SORTER 11/17/19 1259: CARDIO Progress Notes Date and Time Date of Service 11/17/19 Time of Evaluation 1110 Subjective Subjective: No Chest Pain, Other (breathing improved ) Vitals Vitals Vital Signs Date Time Temp Pulse Resp B/P (MAP) Pulse Ox O2 Delivery O2 Flow Rate FiO2 11/17/19 11:00 98.2 85 18 107/69 (82) 97 Room Air 98.2 Weight Weight [ ] Input and Output Intake and Output Intake and Output 11/17/19 07:00 Intake Total 740 ml Output Total 1150 ml Balance -410 ml Intake Oral 740 ml Output Urine Total 1150 ml # Voids 3 Laboratory Labs Laboratory Tests Test 11/16/19 14:00 11/16/19 20:30 11/17/19 11:00 Troponin I Quantitative 0.115 ng/mL (0.000-0.055) Glucose (Fingerstick) 114 mg/dL (70-99) Sodium Level 141 mmol/L (136-145) Potassium Level 3.8 mmol/L (3.5-5.1) Chloride Level 106 mmol/L (98-107) Carbon Dioxide Level 29 mmol/L (21-32) Anion Gap 6 (6-14) Blood Urea Nitrogen 19 mg/dL (8-26) Creatinine 1.7 mg/dL (0.7-1.3) Estimated GFR (Cockcroft-Gault) 48.7 Glucose Level 109 mg/dL (70-99) Calcium Level 8.5 mg/dL (8.5-10.1) Phosphorus Level 3.6 mg/dL (2.6-4.7) Magnesium Level 2.1 mg/dL (1.8-2.4) Physical Exam HEENT: Neck Supple W Full Motion Chest: Symmetric LUNGS: Other (diminished ) Heart: S1S2, RRR Abdomen: Soft N/T Extremities: No Edema Neurology: alert, oriented, follow commands Assessment Assessment 1. Dyspnea with a/c systolic CHF and AE COPD. 2. Acute on chronic systolic HF with NICM; LVEF 15%. Improved s/p IV Lasix 3. Mild troponin elevation; highest 0.115.. Most probably type II demand ischemia. CP free 4. Accelerated hypertension, POA. Now controlled 5. CAD; non-obstructive. 06/2017 LHC 30% to LAD lesion, LCx no occlusion, ramus occluded, RCA with 30-40% proximal lesion. 6. Colon CA with liver metastasis 7. CKD 8. Hyperlipidemia; LD 67 9. Hypomagnesemia ; replaced 10. Hx of seizures 11. Hx of substance abuse 12. Hypothyroidism Recommendations Will given addition dose of Lasix this morning Reinforced importance of 2Gm Na diet. Declined wet suit gluer consult Continue ASA, Coreg, and statin therapy Discontinue Lisinopril. Start low-dose Entresto 36hrs following last dose of lisinopril. Low-dose Lasix upon discharge Follow up with Dr. Cannon as scheduled Supportive care Justicifation of Admission Dx: Justifications for Admission: Justification of Admission Dx: Yes CHF: Sev. Electrolyte Abnormal Respiratory Failure: Severe Resp Distress (A with 6 activity for and then doing you to write a prescription for you to do that okay 6 activity for rest I will drop that off a bit Much as she can go right warfarin is 24 mg in sounds good thanks bye) Acute COPD Exacerbation: Acute COPD Exacerbation DAVID CANNON MD 11/17/19 1713: CARDIO Progress Notes Plan Plan Pt. seen and examined. Agree with above [employer] TECHNICAL LEAD SENIOR DEVELOPER note. Plan for entresto challenge if ok with nephrology. Spoke to Dr. Gee. Thanks RL SAEZ APRN Nov 17, 2019 12:59 DAVID CANNON MD Nov 17, 2019 17:13
--- NOTE | 2019-11-17 13:53 | PDOC ---
[facility] PROGRESS NOTE Chief Complaint Chief Complaint Acute respiratory distress with acute on chronic systolic CHF and COPD exacerbation Acute on chronic systolic HF with NICM; LVEF 10 to 15% on recent echo on 11/16/2019. Improved s/p IV Lasix Mild troponin elevation; initial trop 0.072. Most probably type II demand ischemia Accelerated hypertension, POA. Now controlled CAD; non-obstructive. 06/2017 LHC 30% to LAD lesion, LCx no occlusion, ramus occluded, RCA with 30-40% proximal lesion. Colon CA with liver metastasis CKD Hyperlipidemia; LD 67 Hypomagnesemia ; replaced Hx of seizures Hx of substance abuse Hypothyroidism Ordered Lasix IV 40 mg x 1 dose today Repeat BMP tomorrow a.m. Daily weights and strict I's and O's Diuresis with monitoring of renal function Resume ASA, Coreg, lisinopril, and statin therapy Discussed 2Gm Na dietary restriction. 2000cc FR May need low-dose Lasix upon discharge Eliquis for DVT prophylaxis Cardiac diet Full code Discussed with RN and ED physician Dispo pending echo History of Present Illness History of Present Illness 69-year-old male with past medical history of CAD, CHF with an EF of 65% and stage IV colon cancer who is currently on chemotherapy. Patient states that his last chemotherapy was about 3 weeks ago. The reason he came to the ED was because he was feeling shortness of breath early this morning at 2 AM. Patient states that he has gained about 18 pounds since starting on chemotherapy. And his PCP said that he might need to start on diuretic pills. However, this was weighed with the possible risk of renal failure. Patient has seen a pyrometer temperature regulator in the past. Denies fevers, chest pain, abdominal pain, COVID contacts, diarrhea, dysuria. 11/17/2019 No acute events overnight. Patient endorses improved respiratory status.'s saturating well on room air. Patient's chart, labs, images were reviewed and discussed with RN Vitals/I&O Vitals/I&O: Vital Signs Date Time Temp Pulse Resp B/P (MAP) Pulse Ox O2 Delivery O2 Flow Rate FiO2 11/17/19 11:00 98.2 85 18 107/69 (82) 97 Room Air 98.2 I & O 11/16/19 11/16/19 11/17/19 15:00 23:00 07:00 Intake Total 200 ml 540 ml Output Total 900 ml 250 ml Balance -700 ml 290 ml Physical Exam Physical Exam: GEN: No apparent distress. Alert and oriented. Port-A-Cath placement site clear dry and intact. No signs of infection HEENT: Normal cephalic, atraumatic, external auditory canals are patent NECK: Supple, no JVD, no thyromegaly was noted LUNGS: Bilateral crackles HEART: RRR, S1, S2 present. Peripheral pulses intact, no obvious murmurs noted ABDOMEN: Soft, nontender. Positive bowel sounds, no organomegaly, normal bowel sounds EXTREMITIES: Bilateral +1 pedal edema General: Alert, Oriented X3, Cooperative, No acute distress Heart: Regular rate, Other (2/6 systolic function) Lungs: Clear Abdomen: Soft, No tenderness Extremities: No edema, Normal pulses Skin: No significant lesion Labs Labs: Laboratory Tests Test 11/16/19 14:00 11/16/19 20:30 11/17/19 11:00 Troponin I Quantitative 0.115 ng/mL (0.000-0.055) Glucose (Fingerstick) 114 mg/dL (70-99) Sodium Level 141 mmol/L (136-145) Potassium Level 3.8 mmol/L (3.5-5.1) Chloride Level 106 mmol/L (98-107) Carbon Dioxide Level 29 mmol/L (21-32) Anion Gap 6 (6-14) Blood Urea Nitrogen 19 mg/dL (8-26) Creatinine 1.7 mg/dL (0.7-1.3) Estimated GFR (Cockcroft-Gault) 48.7 Glucose Level 109 mg/dL (70-99) Calcium Level 8.5 mg/dL (8.5-10.1) Phosphorus Level 3.6 mg/dL (2.6-4.7) Magnesium Level 2.1 mg/dL (1.8-2.4) Free Thyroxine 0.98 ng/dL (0.76-1.46) Comment Review of Relevant I have reviewed the following items gala (where applicable) has been applied. Medications: Current Medications Medications (Trade) Dose Ordered Sig/Karina Route PRN Reason Start Time Stop Time Status Last Admin Dose Admin Carvedilol (Coreg) 3.125 mg BIDWMEALS PO 11/16/19 17:00 11/17/19 07:49 Metformin HCl (Glucophage) 500 mg BIDWMEALS PO 11/16/19 17:00 11/17/19 07:48 Tamsulosin HCl (Flomax) 0.4 mg QHS PO 11/16/19 21:00 11/16/19 20:25 Furosemide (Lasix) 40 mg 1X ONCE IVP 11/16/19 14:00 11/16/19 14:01 DC 11/16/19 14:29 Justicifation of Admission Dx: Justifications for Admission: Justification of Admission Dx: Yes CHF: Sev. Electrolyte Abnormal Respiratory Failure: Severe Resp Distress (A with 6 activity for and then doing you to write a prescription for you to do that okay 6 activity for rest I will drop that off a bit Much as she can go right warfarin is 24 mg in sounds good thanks bye) Acute COPD Exacerbation: Acute COPD Exacerbation MEENAKSHI COLEMAN MD Nov 17, 2019 13:53
[2019-11-17 15:00] VITALS: BP 123/76
[2019-11-17 19:30] VITALS: BP 115/73
[2019-11-17] MEDS: TAMSULOSIN 0.4 MG CAP.ER.24H. PO SCH (20:33)
[2019-11-17] MEDS ORDERED: ATORVASTATIN CALCIUM 20 MG TABLET PO SCH (21:00)
[2019-11-17] MEDS ORDERED: ACETAMINOPHEN 325 MG TABLET. PO PRN (21:00)
[2019-11-17 22:08] VITALS: BP 120/75
[2019-11-18 02:51] VITALS: BP 107/63
[2019-11-18 06:04] LABS: CALCIUM 8.7 mg/dL (8.5-10.1); CREATININE 1.9 mg/dL (0.7-1.3); GFR 42.9; POTASSIUM 3.7 mmol/L (3.5-5.1)
[2019-11-18 07:00] VITALS: BP 133/73
[2019-11-18] MEDS: metFORMIN 500 MG TABLET PO SCH (08:54)
[2019-11-18] MEDS: CARVEDILOL 3.125 MG TABLET. PO SCH (08:55)
[2019-11-18] MEDS: APIXABAN 2.5 MG TABLET. PO SCH (08:55)
[2019-11-18] MEDS: levETIRAcetam 500 MG TABLET PO SCH (08:55)
[2019-11-18] MEDS: ASPIRIN CHEWABLE 81 MG TABLET. PO SCH (08:55)
[2019-11-18] MEDS: EZETIMIBE 10 MG TABLET. PO SCH (08:55)
[2019-11-18 10:41] VITALS: BP 118/74
--- NOTE | 2019-11-18 11:44 | DISCH ---
DISCHARGE INSTRUCTIONS Condition on Discharge Condition on Discharge: Stable (Stop lisinopril, continue aspirin and Eliquis, start Entresto) Activity After Discharge Activity Instructions for Disc: Activity as tolerated Lifting Instructions after Dis: No heavy lifting, No pulling or pushing, Do not lift >10 pounds Driving Instructions after Dis: Do not drive today Weight Bearing Status after Di: As tolerated Diet after Discharge Diet after Discharge: Cardiac Contacting the DRRicardo after DC Call your doctor for: If your condition worsens Follow-Up Follow up with: Oncology regarding her chemotherapy treatments Follow Up With: Cardiology for your heart failure and CAD MEENAKSHI COLEMAN MD Nov 18, 2019 11:44
[2019-11-18] MEDS ORDERED: SACU1TAB PO (11:47)
--- NOTE | 2019-11-18 13:19 | PDOC ---
NOE MELO REVERSE ENGINEER 11/18/19 1319: CARDIO Progress Notes Date and Time Date of Service 11/18/2019 Time of Evaluation 1140 Subjective Subjective: No Chest Pain, No shortness of breath, No Palpitations Vitals Vitals Vital Signs Date Time Temp Pulse Resp B/P (MAP) Pulse Ox O2 Delivery O2 Flow Rate FiO2 11/18/19 10:41 98.0 68 118/74 (89) 95 Room Air 98.0 11/18/19 07:00 16 Weight Weight [ ] Input and Output Intake and Output Intake and Output 11/18/19 07:00 Intake Total 0 ml Output Total 415 ml Balance -415 ml Intake Oral 0 ml Output Urine Total 415 ml # Voids 1 Laboratory Labs Laboratory Tests Test 11/18/19 05:00 Sodium Level 142 mmol/L (136-145) Potassium Level 3.7 mmol/L (3.5-5.1) Chloride Level 107 mmol/L (98-107) Carbon Dioxide Level 31 mmol/L (21-32) Anion Gap 4 (6-14) Blood Urea Nitrogen 23 mg/dL (8-26) Creatinine 1.9 mg/dL (0.7-1.3) Estimated GFR (Cockcroft-Gault) 42.9 Glucose Level 95 mg/dL (70-99) Calcium Level 8.7 mg/dL (8.5-10.1) Physical Exam HEENT: Neck Supple W Full Motion Chest: Symmetric LUNGS: Other (diminished ) Heart: RRR (SR) Abdomen: Soft N/T Extremities: No Edema Neurology: alert, oriented, follow commands Assessment Assessment 1. Dyspnea with a/c systolic CHF and AE COPD: compensated 2. Acute on chronic systolic HF with NICM; LVEF 15%. 3. Mild troponin elevation; highest 0.115.. Most probably type II demand is chemia. CP free 4. Accelerated hypertension, POA. Now controlled 5. CAD; non-obstructive. 06/2017 LHC 30% to LAD lesion, LCx no occlusion, ramus occluded, RCA with 30-40% proximal lesion. 6. Colon CA with liver metastasis 7. CKD 8. Hyperlipidemia; LD 67 9. Hypomagnesemia ; replaced 10. Hx of seizures 11. Hx of substance abuse 12. Hypothyroidism Recommendations Will provide with low dose entresto samples, recheck BMP in 2 weeks and will consider uptitrating as an outpt Low dose lasix and K. Discussed not to drink gatorade. Reinforced importance of 2Gm Na diet 2L FR Continue ASA, Coreg, and statin therapy entresto to start tomorrow.AM due to recent use of lisinopril HBPM Follow up with Dr. Medellin as scheduled Supportive care Justicifation of Admission Dx: Justifications for Admission: Justification of Admission Dx: Yes CHF: Sev. Electrolyte Abnormal Respiratory Failure: Severe Resp Distress (A with 6 activity for and then doing you to write a prescription for you to do that okay 6 activity for rest I will drop that off a bit Much as she can go right warfarin is 24 mg in sounds good thanks bye) Acute COPD Exacerbation: Acute COPD Exacerbation DAVID MEDELLIN MD 11/19/19 1052: CARDIO Progress Notes Plan Plan Late entry for 11/18/2019 Pt. seen and examined. Agree with above SENIOR EDUCATION SPECIALIST note. Supportive care. NOE MELO APRN Nov 18, 2019 13:19 DAVID MEDELLIN MD Nov 19, 2019 10:52
--- NOTE | 2019-11-18 14:57 | NUR ---
Discharge Note: LI CROUCH [place] Discharge instructions and discharge home medications reviewed with Patient and a copy given. All questions have been answered and understanding verbalized. The following instructions and handouts were given: shortness of breath, prescriptions, and follow up. Discontinued lines and drains: ольга cath discontinued. Patient discharged to home via ambulation.
[2019-11-18] MEDS ORDERED: POTA10TA12 PO (15:02)
[2019-11-18] MEDS ORDERED: FURO20TA3 PO (15:02)
--- NOTE | 2019-11-18 18:06 | PDOC3 ---
[facility]-Discharge Summary Date of Admission: Date of Admission: Nov 16, 2019 Date of Discharge: Date of Discharge: Nov 18, 2019 Admission Diagnosis: Admitting Diagnosis: Acute respiratory distress due to acute on chronic CHF versus COPD exacerbation Acute on chronic systolic HF with NICM; LVEF 15%. Improved s/p IV Lasix Mild troponin elevation; initial trop 0.072. Most probably type II demand ischemia Accelerated hypertension, POA. Now controlled CAD; non-obstructive. 06/2017 LHC 30% to LAD lesion, LCx no occlusion, ramus occluded, RCA with 30-40% proximal lesion. Colon CA with liver metastasis completed about 24 sessions of chemotherapy CKD Hyperlipidemia; LD 67 Hypomagnesemia ; replaced Hx of seizures Hx of substance abuse Hypothyroidism Discharge Diagnosis: Discharge Diagnosis: Acute respiratory distress with acute on chronic systolic CHF and severe COPD exacerbation Acute on chronic systolic HF with NICM; LVEF 10 to 15% on recent echo on 11/16/2019. Improved s/p IV Lasix Mild troponin elevation; initial trop 0.072. Most probably type II demand ischemia Accelerated hypertension, POA. Now controlled CAD; non-obstructive. 06/2017 LHC 30% to LAD lesion, LCx no occlusion, ramus occluded, RCA with 30-40% proximal lesion. 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 Patient states that his last chemotherapy was about 3 weeks ago. The reason he came to the ED was because he was feeling shortness of breath early this morning at 2 AM. Patient states that he has gained about 18 pounds since starting on chemotherapy. And his PCP said that he might need to start on diuretic pills. However, this was weighed with the possible risk of renal failure. Patient has seen a special educator in the past. Denies fevers, chest pain, abdominal pain, COVID contacts, diarrhea, dysuria. Patient was admitted for further care and evaluated by cardiology. 2 doses of 40 mg IV Lasix. Patient did have adequate urine output and his respiratory status is improved. Patient did not require any oxygen treatments. He was able to saturate above 95% on room air. Patient had echocardiogram done which did show that his ejection fraction is about 10 to 15%. It was discussed in great depth with cardiology that patient needs to be on Entresto. Patient will need to follow-up with his oncologist and PCP for further shared decision-making whether to proceed further with chemotherapy treatments. At this time, patient is deciding whether to be aggressive with his treatments. Extensive education w as provided for the patient to remain hydrated yet can continue to weigh himself daily and restrict his fluids to less than 2 L/day and sodium restrictions to less than 2 g/day. Disposition: Disposition/Orders: D/C to Home Activity: Activity: Resume previous activity Diet: Diet: Cardiac Medications: Home Meds Active Scripts Potassium Chloride (KLOR-CON 10) 10 Meq Tablet.er, 10 MEQ PO DAILYWBKFT for lasix for 30 Days, #30 TAB.SR 3 Refills Prov:NOE MELO APRN 11/18/19 Furosemide (FUROSEMIDE) 20 Mg Tablet, 20 MG PO DAILY for chf for 30 Days, #30 TAB 3 Refills Prov:NOE MELO APRN 11/18/19 Sacubitril/Valsartan (Entresto 24 mg-26 mg Tablet) 1 Each Tablet, 1 TAB PO BID for chf for 14 Days, #28 TAB Prov:MEENAKSHI COLEMAN MD 11/18/19 Reported Medications Apixaban (ELIQUIS) 2.5 Mg Tablet, 2.5 MG PO DAILY for , TAB 11/16/19 Metformin Hcl (METFORMIN HCL) 500 Mg Tablet, 500 MG PO BIDWMEALS for ANTI- DIABETIC, TAB 0 Refills 11/16/19 Atorvastatin Calcium (ATORVASTATIN CALCIUM) 20 Mg Tablet, 1 TAB PO DAILY for , #30 TAB 5 Refills 11/16/19 Tamsulosin Hcl (FLOMAX) 0.4 Mg Cap.er.24h, 1 CAP PO DAILY for , #30 CAP 11 Refills 11/16/19 Ondansetron Hcl (ZOFRAN) 8 Mg Tablet, 1 TAB PO Q8HRS for n/v, #30 TAB 1 Refill 03/08/18 Ezetimibe (ZETIA) 10 Mg Tablet, 1 TAB PO DAILY for cholesterol, #30 TAB 5 Refills 02/22/18 Folic Acid (FOLIC ACID) 1 Mg Tablet, 1 TAB PO DAILY for unknown, #90 TAB 1 Refill 02/22/18 Aspirin (ASPIRIN) 81 Mg Tab.chew, 1 TAB PO DAILY for maintenance, #30 TAB 3 Refills 02/22/18 Carvedilol (CARVEDILOL ) 3.125 Mg Tablet, 1 TAB PO BID for blood pressure, #60 TAB 3 Refills 02/22/18 Levetiracetam (LEVETIRACETAM) 500 Mg Tablet, 1 TAB PO BID for Seizure, #180 TAB 3 Refills 02/22/18 Discontinued Reported Medications Lisinopril (LISINOPRIL) 20 Mg Tablet, 1 TAB PO DAILY for , #30 TAB 5 Refills 11/16/19 Naproxen (NAPROXEN) 375 Mg Tablet, 1 TAB PO BID for arthritis, #60 TAB 5 Refills 05/01/18 Scheduled Apixaban (Eliquis), 2.5 MG PO DAILY, (Reported) Aspirin (Aspirin), 1 TAB PO DAILY, (Reported) Atorvastatin Calcium (Atorvastatin Calcium), 1 TAB PO DAILY, (Reported) Carvedilol (Carvedilol ), 1 TAB PO BID, (Reported) Ezetimibe (Zetia), 1 TAB PO DAILY, (Reported) Folic Acid (Folic Acid), 1 TAB PO DAILY, (Reported) Furosemide (Furosemide), 20 MG PO DAILY Levetiracetam (Levetiracetam), 1 TAB PO BID, (Reported) Metformin Hcl (Metformin Hcl), 500 MG PO BIDWMEALS, (Reported) Ondansetron Hcl (Zofran), 1 TAB PO Q8HRS, (Reported) Potassium Chloride (Klor-Con 10), 10 MEQ PO DAILYWBKFT Sacubitril/Valsartan (Entresto 24 mg-26 mg Tablet), 1 TAB PO BID Tamsulosin Hcl (Flomax), 1 CAP PO DAILY, (Reported) Discontinued Medications Lisinopril (Lisinopril), 1 TAB PO DAILY, (Reported) Naproxen (Naproxen), 1 TAB PO BID, (Reported) Total Time: Total Time: Total time spent was 45 minutes in preparing scripts, discharge planning with SWI and RN and preparing this discharge summary Justicifation of Admission Dx: Justifications for Admission: Justification of Admission Dx: Yes CHF: Sev. Electrolyte Abnormal Respiratory Failure: Severe Resp Distress (A with 6 activity for and then doing you to write a prescription for you to do that okay 6 activity for rest I will drop that off a bit Much as she can go right warfarin is 24 mg in sounds good thanks bye) Acute COPD Exacerbation: Acute COPD Exacerbation MEENAKSHI COLEMAN MD Nov 18, 2019 18:06
[2019-11-18] MEDS ORDERED: SACUBITRIL/VALSARTAN 24/26MG TABLET. PO SCH (21:00)
[2019-11-19] MEDS ORDERED: POTASSIUM CHLORIDE 10 MEQ TABLET.ER. PO SCH (08:00)
[2019-11-19] MEDS ORDERED: FUROSEMIDE 20 MG TABLET PO SCH (09:00)
== END 2019-11-18 15:04 | disposition home or self-care (01) | DRG 291 ==
LOC: ER 04:20 → 2 NORTH 05:30
PROVIDERS: ADMIT Internal Medicine; ATTEND Internal Medicine
DX: I13.0 Hypertensive heart and chronic kidney disease with heart failure and stage 1 through stage 4 chronic kidney disease, or unspecified chronic kidney disease (principal); I50.23 Acute on chronic systolic (congestive) heart failure; N17.0 Acute kidney failure with tubular necrosis; I24.8 Other forms of acute ischemic heart disease; C18.9 Malignant neoplasm of colon, unspecified; C78.7 Secondary malignant neoplasm of liver and intrahepatic bile duct; J44.1 Chronic obstructive pulmonary disease with (acute) exacerbation; I42.8 Other cardiomyopathies; E03.9 Hypothyroidism, unspecified; E78.5 Hyperlipidemia, unspecified; E83.42 Hypomagnesemia; F14.90 Cocaine use, unspecified, uncomplicated; F17.210 Nicotine dependence, cigarettes, uncomplicated; I25.10 Atherosclerotic heart disease of native coronary artery without angina pectoris; N18.9 Chronic kidney disease, unspecified; Z82.49 Family history of ischemic heart disease and other diseases of the circulatory system; Z92.21 Personal history of antineoplastic chemotherapy; M19.90 Unspecified osteoarthritis, unspecified site
CPT/HCPCS: 36415; 71045; 80048; 80053; 80061; 80307; 81001; 82962; 83735; 83880; 84100; 84439; 84443; 84484; 85025; 93005; 93306; 96374; 99285; J1940; J3475; G0378

== ENCOUNTER 2019-12-11 12:13 | Inpatient (IN) | payer MEDICARE, OTHER ==
[~2019-12-11] VITALS: Ht 165.1 cm; Wt 85.5 kg
[~2019-12-11 12:13] MED LIST changes: +APIX2.5T PO; +ATOR20TA58 PO; +FURO20TA3 PO; +LISI-334 PO; +METF500T16 PO; +POTA10TA12 PO; +SACU1TAB PO; +TAMS0.4C97 PO
[2019-12-11] MEDS ORDERED: IV NORMAL SALINE 1000ML BAG 1,000 ML IV ONE ×2 (12:45→16:00)
--- NOTE | 2019-12-11 12:48 | PHYS DOC ---
Past Medical History Past Medical History: CAD, CHF Additional Past Medical Histor: LIVER CA, COLON CA. Past Surgical History: No Surgical History Additional Past Surgical Histo: PORT PLACEMENT WITHIN 3 MONTHS. Smoking Status: Current Some Day Smoker Alcohol Use: None Drug Use: Cocaine, Marijuana General Adult EDM: Chief Complaint: NEAR SYNCOPE HPI: HPI: Patient is a 69 year old male who was in his normal state of health and was outside for 10 to 15 minutes today sitting down and when he stood up his eyes rolled back and he felt like he was going to pass out. Patient was experiencing generalized weakness at the time. Patient now says he feels pretty good. Patient denies any pain. Patient denies any fevers chills cough vomiting diarrhea blood in his stool. Patient has any chest pain or shortness of breath. Review of Systems: Review of Systems: Constitutional: Denies fever or chills. [] Eyes: Denies change in visual acuity. [] HENT: Denies nasal congestion or sore throat. [] Respiratory: Denies cough or shortness of breath. [] Cardiovascular: Denies chest pain or edema. [] GI: Denies abdominal pain, nausea, vomiting, bloody stools or diarrhea. [] : Denies dysuria. [] Musculoskeletal: Denies back pain or joint pain. [] Integument: Denies rash. [] Neurologic: Denies headache, focal weakness or sensory changes. [] Endocrine: Denies polyuria or polydipsia. [] Lymphatic: Denies swollen glands. [] Psychiatric: Denies depression or anxiety. [] Heart Score: Risk Factors: Risk Factors: DM, Current or recent (<one month) smoker, HTN, HLP, family history of CAD, obesity. Risk Scores: Score 0 - 3: 2.5% MACE over next 6 weeks - Discharge Home Score 4 - 6: 20.3% MACE over next 6 weeks - Admit for Clinical Observation Score 7 - 10: 72.7% MACE over next 6 weeks - Early Invasive Strategies Current Medications: Current Medications Medications (Trade) Dose Ordered Sig/Karina Start Time Stop Time Status Last Admin Dose Admin Sodium Chloride 1,000 ml @ 1,000 mls/hr 1X ONCE 12/11/19 12:45 12/11/19 13:44 Allergies: Allergies: Allergies Coded Allergies Type Severity Reaction Last Updated Verified No Known Drug Allergies 03/08/18 No Physical Exam: PE: Constitutional: Well developed, well nourished, no acute distress, non-toxic appearance. [] HENT: Normocephalic, atraumatic, bilateral external ears normal, oropharynx moist, no oral exudates, nose normal. [] Eyes: PERRLA, EOMI, conjunctiva normal, no discharge. [] Neck: Normal range of motion, no tenderness, supple, no stridor. [] Cardiovascular:Heart rate regular rhythm, peripheral pulses intact, cap refill brisk Lungs & Thorax: Bilateral breath sounds clear, no respiratory distress Abdomen: , soft, no tenderness, no masses, no pulsatile masses. [] Skin: Warm, dry, no erythema, no rash. [] Back: No tenderness, no CVA tenderness. [] Extremities: No tenderness, no cyanosis, no clubbing, ROM intact, no edema. [] Neurologic: Alert and oriented X 3, normal motor function, normal sensory function, no focal deficits noted. [] Psychologic: Affect normal, judgement normal, mood normal. [] Current Patient Data: Labs: Laboratory Tests Test 12/11/19 12:40 White Blood Count 3.0 x10^3/uL Red Blood Count 4.01 x10^6/uL Hemoglobin 12.5 g/dL Hematocrit 38.8 % Mean Corpuscular Volume 97 fL Mean Corpuscular Hemoglobin 31 pg Mean Corpuscular Hemoglobin Concent 32 g/dL Red Cell Distribution Width 18.1 % Platelet Count 76 x10^3/uL Neutrophils (%) (Auto) 34 % Lymphocytes (%) (Auto) 45 % Monocytes (%) (Auto) 14 % Eosinophils (%) (Auto) 6 % Basophils (%) (Auto) 1 % Neutrophils # (Auto) 1.0 x10^3/uL Lymphocytes # (Auto) 1.4 x10^3/uL Monocytes # (Auto) 0.4 x10^3/uL Eosinophils # (Auto) 0.2 x10^3/uL Basophils # (Auto) 0.0 x10^3/uL Sodium Level 138 mmol/L Potassium Level 6.1 mmol/L Chloride Level 107 mmol/L Carbon Dioxide Level 24 mmol/L Anion Gap 7 Blood Urea Nitrogen 21 mg/dL Creatinine 2.0 mg/dL Estimated GFR (Cockcroft-Gault) 40.4 BUN/Creatinine Ratio 11 Glucose Level 124 mg/dL Calcium Level 8.9 mg/dL Total Bilirubin 0.6 mg/dL Aspartate Amino Transf (AST/SGOT) 19 U/L Alanine Aminotransferase (ALT/SGPT) 24 U/L Alkaline Phosphatase 96 U/L Troponin I Quantitative 0.025 ng/mL Total Protein 7.6 g/dL Albumin 3.7 g/dL Albumin/Globulin Ratio 0.9 Current Medications Medications (Trade) Dose Ordered Sig/Karina Route PRN Reason Start Time Stop Time Status Last Admin Dose Admin Sodium Chloride 1,000 ml @ 1,000 mls/hr 1X ONCE IV 12/11/19 12:45 12/11/19 13:44 DC 12/11/19 12:56 Calcium Gluconate 1000 mg/Sodium Chloride 110 ml @ 220 mls/hr 1X ONCE IV 12/11/19 14:00 12/11/19 14:29 DC 12/11/19 14:47 Dextrose (Dextrose 50%-Water Syringe) 25 gm 1X ONCE IV 12/11/19 13:45 12/11/19 13:46 DC 12/11/19 14:47 Insulin Human Regular (HumuLIN R VIAL) 10 unit 1X ONCE IV 12/11/19 13:45 12/11/19 13:46 DC 12/11/19 14:48 Vital Signs: Vital Signs Date Time Temp Pulse Resp B/P (MAP) Pulse Ox O2 Delivery O2 Flow Rate FiO2 12/11/19 12:15 97.8 69 16 95/54 (68) 99 Room Air 97.8 EKG: EKG: [] EKG interpreted by me normal sinus rhythm with a rate of 62 normal axis normal intervals T wave inversion in the lateral leads Radiology/Procedures: Radiology/Procedures: [][facility] [address] [place] [address] IMAGING REPORT Signed PATIENT: SANTIAGO CROUCH ACCOUNT: [id number] : 1950 LOCATION: ER AGE: 69 SEX: M EXAM STATUS: PRE ER ORD. PHYSICIAN: EFREN BELLA MD REASON: NEAR SYNCOPE PROCEDURE: PORTABLE CHEST 1V EXAM: Chest, single view. HISTORY: Near syncope. COMPARISON: 11/16/2019 FINDINGS: A frontal view of the chest is obtained. There is no infiltrate, pleural effusion or pneumothorax. The heart is normal in size. There is a port catheter with the tip in the superior cavoatrial junction. IMPRESSION: No acute pulmonary finding. Electronically signed by: Therese Li MD (12/11/2019 1:52 PM) [facility] DICTATED and SIGNED BY: THERESE LI MD DATE: 12/11/19 3158 Course & Med Decision Making: Course & Med Decision Making Pertinent Labs and Imaging studies reviewed. (See chart for details) [] 69-year-old male with a near syncopal event. Patient found to have hyperkalemia on nonhemolyzed blood specimen. Patient's hyperkalemia has been treated with calcium, insulin, D50. Patient given IV fluids for some dehydration. Patient will place in observation to for further evaluation treatment. Dragon Disclaimer: Dragon Disclaimer: This electronic medical record was generated, in whole or in part, using a voice recognition dictation system. Departure Departure Impression: Primary Impression: Near syncope Additional Impressions: Dehydration Hyperkalemia Disposition: ADMITTED INPATIENT Admitting Physician: VERONIKA thurman) Referrals: MARIYA LOPEZ MD (PCP) Justicifation of Admission Dx: Justifications for Admission: Justification of Admission Dx: Yes CHF: Sev. Electrolyte Abnormal Respiratory Failure: Severe Resp Distress Chronic Renal Failure: Electrolyte Abnormality Acute COPD Exacerbation: Acute COPD Exacerbation EFREN BELLA MD Dec 11, 2019 12:48
[2019-12-11 12:56] LABS: BASO % 1 % (0-3); EOS # 0.2 x10^3/uL (0.0-0.7); EOS % 6 % (0-3); HEMATOCRIT 38.8 % (39.0-53.0); HEMOGLOBIN 12.5 g/dL (13.0-17.5); LYMPH # 1.4 x10^3/uL (1.0-4.8); LYMPH % 45 % (24-48); MEAN CORPUSCULAR HEMOGLOBIN 31 pg (25-35); MEAN CORPUSCULAR HGB CONC 32 g/dL (31-37); MEAN CORPUSCULAR VOLUME 97 fL (79-100); MONO # 0.4 x10^3/uL (0.0-1.1); MONO % 14 % (0-9); NEUT % 34 % (31-73); PLATELET COUNT 76 x10^3/uL (140-400); RED BLOOD COUNT 4.01 x10^6/uL (4.30-5.70); RED CELL DISTRIBUTION WIDTH 18.1 % (11.5-14.5)
[2019-12-11 13:12] LABS: ALBUMIN 3.7 g/dL (3.4-5.0); ALBUMIN/GLOBULIN RATIO 0.9 (1.0-1.7); CALCIUM 8.9 mg/dL (8.5-10.1); GFR 40.4; TOTAL BILIRUBIN 0.6 mg/dL (0.2-1.0); TOTAL PROTEIN 7.6 g/dL (6.4-8.2)
[2019-12-11 13:16] LABS: POTASSIUM 6.1 mmol/L (3.5-5.1)
[2019-12-11] MEDS ORDERED: DEXTROSE 50% 25 GM / 50ML DISP.SYRIN. IV ONE (13:45)
[2019-12-11] MEDS ORDERED: INSULIN REGULAR 100 UNIT/ML 3ML VIAL. IV ONE (13:45)
--- NOTE | 2019-12-11 13:54 | RAD ---
EXAM: Chest, single view. HISTORY: Near syncope. COMPARISON: 11/16/2019 FINDINGS: A frontal view of the chest is obtained. There is no infiltrate, pleural effusion or pneumothorax. The heart is normal in size. There is a port catheter with the tip in the superior cavoatrial junction. IMPRESSION: No acute pulmonary finding. Electronically signed by: Therese Fuller MD (12/11/2019 1:52 PM) [facility]
[2019-12-11] MEDS ORDERED: CALCIUM GLUCONATE 1,000 MG in IV NORMAL SALINE 100ML 100 ML IV ONE (14:00)
[2019-12-11] MEDS ORDERED: ZOLPIDEM 5 MG TABLET. PO PRN (15:15)
[2019-12-11] MEDS ORDERED: ALBUTEROL SULFATE 2.5 MG/3 ML NEBU. NEB PRN (15:15)
[2019-12-11] MEDS ORDERED: guaiFENesin ORAL 200 MG/10 ML LIQUID. PO PRN (15:15)
[2019-12-11] MEDS ORDERED: LORazepam 0.5 MG TABLET PO PRN (15:15)
[2019-12-11] MEDS ORDERED: ONDANSETRON PF 4 MG/2 ML VIAL. IV PRN ×2 (15:15)
[2019-12-11 16:03] LABS: BILIRUBIN,URINE NEGATIVE (NEG); CLARITY,URINE CLEAR; COLOR,URINE YELLOW; NITRITE,URINE NEGATIVE (NEG); PROTEIN,URINE NEGATIVE (NEG-TRACE); UROBILINOGEN,URINE 0.2 mg/dL (0.2 mg/dL)
[2019-12-11 16:11] LABS: HYALINE CASTS, URINE MODERATE /HPF
[2019-12-11 16:12] LABS: BACTERIA,URINE 0 /HPF (0-FEW); RBC,URINE 0 /HPF (0-2); WBC,URINE 0 /HPF (0-4)
[2019-12-11 16:13] LABS: SQUAMOUS EPITHELIAL CELL,UR OCC /LPF
[2019-12-11 16:49] LABS: CALCIUM 8.7 mg/dL (8.5-10.1); CREATININE 1.9 mg/dL (0.7-1.3); GFR 42.9
[2019-12-11] MEDS: CARVEDILOL 3.125 MG TABLET. PO SCH (17:00)
--- NOTE | 2019-12-11 18:06 | PDOC1 ---
History and Physical Date of Admission Date of Admission 12/11/2019 Identification/Chief Complaint Chief Complaint Near syncope History of Present Illness History of Present Illness Patient is a 69-year-old male with past medical history of CAD CHF with systolic dysfunction stage IV colon cancer who is currently undergoing chemotherapy. Patient was admitted to our institution on 11/16/2019 With a diagnosis of acute respiratory distress due to acute on chronic congestive heart failure. The patient was admitted to the telemetry floor troponins were trended echocardiogram that was done at that time and the results are as follows: <Conclusion> Left ventricle ejection fraction is severely impaired. The Ejection Fraction is 10-15%. There is severe global hypokinesis of the left ventricle. Doppler and Color-flow revealed mild mitral regurgitation. There is a trace circumferential pericardial effusion. Signed by : Binh Cannon, Electronically Approved : 11/16/2019 14:32:10 Patient today apparently was in his usual state of health when he was sitting outside for about 15 minutes when he decided to stand up and apparently he had a syncopal episode with no aura the patient denied any chest discomfort no palpitations prior to the event he has been taking his medications as usual no recent history of paroxysmal nocturnal dyspnea no orthopnea was reported either no chest pain or palpitations in the patient at the time of my visit feels quite well. We have been asked to admit for observation due to an elevation of potassium of his patient. The patient is not exhibiting any electrocardiographic changes he has had a mild bump in his creatinine but the patient denies any changes in his urinary output. Discussed the laboratory data with the patient and the plan of care in detail and all of his concerns were addressed to the best of my abilities Past Medical History Cardiovascular: CAD, HTN, Hyperlipidemia Pulmonary: No pertinent hx CENTRAL NERVOUS SYSTEM: Seizure GI: No pertinent hx Heme/Onc: No pertinent hx Hepatobiliary: No pertinent hx Psych: No pertinent hx Rheumatologic: No pertinent hx Infectious disease: No pertinent hx Renal/: No pertinent hx Endocrine: No pertinent hx Past Surgical History Past Surgical History: Other Family History Family History: Hypertension Social History ALCOHOL: other Drugs: Cocaine, Marijuana Current Problem List Problem List Problems Medical Problems: (1) Hyperkalemia Status: Acute (2) Near syncope Status: Acute Current Medications Current Medications Current Medications Medications (Trade) Dose Ordered Sig/Karina Start Time Stop Time Status Last Admin Dose Admin Albuterol Sulfate (Ventolin Neb Soln) 2.5 mg PRN Q4HRS PRN 12/11/19 15:15 Apixaban (Eliquis) 2.5 mg BID 12/11/19 21:00 Aspirin (Aspirin Chewable) 81 mg DAILY 12/12/19 09:00 Atorvastatin Calcium (Lipitor) 20 mg DAILY 12/12/19 09:00 Calcium Gluconate 1000 mg/Sodium Chloride 110 ml @ 220 mls/hr 1X ONCE 12/11/19 14:00 12/11/19 14:29 DC 12/11/19 14:47 220 MLS/HR Carvedilol (Coreg) 3.125 mg BIDWMEALS 12/11/19 17:00 Dextrose (Dextrose 50%-Water Syringe) 25 gm 1X ONCE 12/11/19 13:45 12/11/19 13:46 DC 12/11/19 14:47 25 GM EZETIMIBE (Zetia) 10 mg DAILY 12/12/19 09:00 Folic Acid (Folic Acid) 1 mg DAILY 12/12/19 09:00 Furosemide (Lasix) 20 mg DAILY 12/12/19 09:00 Guaifenesin (Robitussin) 200 mg PRN Q4HRS PRN 12/11/19 15:15 Insulin Human Regular (HumuLIN R VIAL) 10 unit 1X ONCE 12/11/19 13:45 12/11/19 13:46 DC 12/11/19 14:48 10 UNIT Levetiracetam (Keppra) 500 mg BID 12/11/19 21:00 Lorazepam (Ativan) 0.5 mg PRN Q4HRS PRN 12/11/19 15:15 Ondansetron HCl (Zofran) 4 mg PRN Q4HRS PRN 12/11/19 15:15 Potassium Chloride (Klor-Con) 10 meq [id number] 12/12/19 08:00 Sacubitril/ Valsartan (Entresto 24 Mg-26 Mg) 1 tab BID 12/11/19 21:00 Sodium Chloride 1,000 ml @ 125 mls/hr 1X ONCE 12/11/19 16:00 12/11/19 23:59 12/11/19 16:32 125 MLS/HR Tamsulosin HCl (Flomax) 0.4 mg DAILY 12/12/19 09:00 Zolpidem Tartrate (Ambien) 5 mg PRN QHS PRN 12/11/19 15:15 Allergies Allergies Allergies Coded Allergies Type Severity Reaction Last Updated Verified No Known Drug Allergies 03/08/18 No ROS Review of System CONSTITUTIONAL: No fever or chills EYES: No recent changes SKIN: No rash or itching CARDIOVASCULAR: No chest pain, syncope, palpitations, or edema RESPIRATORY: No SOB or cough GASTROINTESTINAL: No nausea, vomiting or abdominal pain NEUROLOGICAL: No headaches or weakness ENDOCRINE: No cold or heat intolerance GENITOURINARY: No urgency or frequency of urination MUSCULOSKELETAL: No back pain or joint pain LYMPHATICS: No enlarged lymph nodes PSYCHIATRIC: No anxiety or depression Physical Exam Physical Exam GEN: No apparent distress. Alert and oriented HEENT: Normal cephalic, atraumatic, external auditory canals are patent EYES: Extraocular muscles are intact, pupil are equally round and reactive to light and accommodation MUSCULOSKELETAL: Well developed , well nourished, good range of motion ENDOCRINE: No thyromegaly was palpated LYMPHATICS: No cervical chain or axillary nodes were noted HEMATOPOIETIC: No bruising NECK: Supple, no JVD, no thyromegaly was noted LUNGS: Clear to auscultation in all lung wilson without rhonchi or wheezing HEART: RRR, S!, S2 present. Peripheral pulses intact, no obvious murmurs noted ABDOMEN: Soft, nontender. Positive bowel sounds, no organomegaly, normal bowel sounds EXTREMITIES: Without clubbing, cyanosis, or edema. Pedal pulses intact. Negative Homans sign NEUROLOGIC: Normal speech and tone. A&O x 3, moves all extremities, no obvious focal deficits PSYCHIATRIC: Normal affect, normal mood. Stable SKIN: No ulcerations or rashes, good skin turgor, no jaundice VASCULAR: Good capillary refill, Vitals Vitals Vital Signs Date Time Temp Pulse Resp B/P (MAP) Pulse Ox O2 Delivery O2 Flow Rate FiO2 12/11/19 17:00 68 88/55 12/11/19 12:15 97.8 16 99 Room Air 97.8 Labs Labs Laboratory Tests Test 12/11/19 12:40 12/11/19 15:50 12/11/19 16:30 White Blood Count 3.0 x10^3/uL (4.0-11.0) Red Blood Count 4.01 x10^6/uL (4.30-5.70) Hemoglobin 12.5 g/dL (13.0-17.5) Hematocrit 38.8 % (39.0-53.0) Mean Corpuscular Volume 97 fL (79-100) Mean Corpuscular Hemoglobin 31 pg (25-35) Mean Corpuscular Hemoglobin Concent 32 g/dL (31-37) Red Cell Distribution Width 18.1 % (11.5-14.5) Platelet Count 76 x10^3/uL (140-400) Neutrophils (%) (Auto) 34 % (31-73) Lymphocytes (%) (Auto) 45 % (24-48) Monocytes (%) (Auto) 14 % (0-9) Eosinophils (%) (Auto) 6 % (0-3) Basophils (%) (Auto) 1 % (0-3) Neutrophils # (Auto) 1.0 x10^3/uL (1.8-7.7) Lymphocytes # (Auto) 1.4 x10^3/uL (1.0-4.8) Monocytes # (Auto) 0.4 x10^3/uL (0.0-1.1) Eosinophils # (Auto) 0.2 x10^3/uL (0.0-0.7) Basophils # (Auto) 0.0 x10^3/uL (0.0-0.2) Sodium Level 138 mmol/L (136-145) 141 mmol/L (136-145) Potassium Level 6.1 mmol/L (3.5-5.1) 4.0 mmol/L (3.5-5.1) Chloride Level 107 mmol/L (98-107) 108 mmol/L (98-107) Carbon Dioxide Level 24 mmol/L (21-32) 25 mmol/L (21-32) Anion Gap 7 (6-14) 8 (6-14) Blood Urea Nitrogen 21 mg/dL (8-26) 23 mg/dL (8-26) Creatinine 2.0 mg/dL (0.7-1.3) 1.9 mg/dL (0.7-1.3) Estimated GFR (Cockcroft-Gault) 40.4 42.9 BUN/Creatinine Ratio 11 (6-20) Glucose Level 124 mg/dL (70-99) 97 mg/dL (70-99) Calcium Level 8.9 mg/dL (8.5-10.1) 8.7 mg/dL (8.5-10.1) Total Bilirubin 0.6 mg/dL (0.2-1.0) Aspartate Amino Transf (AST/SGOT) 19 U/L (15-37) Alanine Aminotransferase (ALT/SGPT) 24 U/L (16-63) Alkaline Phosphatase 96 U/L (46-116) Troponin I Quantitative 0.025 ng/mL (0.000-0.055) Total Protein 7.6 g/dL (6.4-8.2) Albumin 3.7 g/dL (3.4-5.0) Albumin/Globulin Ratio 0.9 (1.0-1.7) Urine Collection Type Void Urine Color Yellow Urine Clarity Clear Urine pH 5.0 (<5.0-8.0) Urine Specific Grimsley 1.010 (1.000-1.030) Urine Protein Negative mg/dL (NEG-TRACE) Urine Glucose (UA) 100 mg/dL (NEG) Urine Ketones (Stick) Negative mg/dL (NEG) Urine Blood Negative (NEG) Urine Nitrite Negative (NEG) Urine Bilirubin Negative (NEG) Urine Urobilinogen Dipstick 0.2 mg/dL (0.2 mg/dL) Urine Leukocyte Esterase Negative (NEG) Urine RBC 0 /HPF (0-2) Urine WBC 0 /HPF (0-4) Urine Squamous Epithelial Cells Occ /LPF Urine Bacteria 0 /HPF (0-FEW) Urine Hyaline Casts Moderate /HPF Urine Mucus Mod /LPF Laboratory Tests Test 12/11/19 12:40 12/11/19 15:50 12/11/19 16:30 White Blood Count 3.0 x10^3/uL (4.0-11.0) Red Blood Count 4.01 x10^6/uL (4.30-5.70) Hemoglobin 12.5 g/dL (13.0-17.5) Hematocrit 38.8 % (39.0-53.0) Mean Corpuscular Volume 97 fL (79-100) Mean Corpuscular Hemoglobin 31 pg (25-35) Mean Corpuscular Hemoglobin Concent 32 g/dL (31-37) Red Cell Distribution Width 18.1 % (11.5-14.5) Platelet Count 76 x10^3/uL (140-400) Neutrophils (%) (Auto) 34 % (31-73) Lymphocytes (%) (Auto) 45 % (24-48) Monocytes (%) (Auto) 14 % (0-9) Eosinophils (%) (Auto) 6 % (0-3) Basophils (%) (Auto) 1 % (0-3) Neutrophils # (Auto) 1.0 x10^3/uL (1.8-7.7) Lymphocytes # (Auto) 1.4 x10^3/uL (1.0-4.8) Monocytes # (Auto) 0.4 x10^3/uL (0.0-1.1) Eosinophils # (Auto) 0.2 x10^3/uL (0.0-0.7) Basophils # (Auto) 0.0 x10^3/uL (0.0-0.2) Sodium Level 138 mmol/L (136-145) 141 mmol/L (136-145) Potassium Level 6.1 mmol/L (3.5-5.1) 4.0 mmol/L (3.5-5.1) Chloride Level 107 mmol/L (98-107) 108 mmol/L (98-107) Carbon Dioxide Level 24 mmol/L (21-32) 25 mmol/L (21-32) Anion Gap 7 (6-14) 8 (6-14) Blood Urea Nitrogen 21 mg/dL (8-26) 23 mg/dL (8-26) Creatinine 2.0 mg/dL (0.7-1.3) 1.9 mg/dL (0.7-1.3) Estimated GFR (Cockcroft-Gault) 40.4 42.9 BUN/Creatinine Ratio 11 (6-20) Glucose Level 124 mg/dL (70-99) 97 mg/dL (70-99) Calcium Level 8.9 mg/dL (8.5-10.1) 8.7 mg/dL (8.5-10.1) Total Bilirubin 0.6 mg/dL (0.2-1.0) Aspartate Amino Transf (AST/SGOT) 19 U/L (15-37) Alanine Aminotransferase (ALT/SGPT) 24 U/L (16-63) Alkaline Phosphatase 96 U/L (46-116) Troponin I Quantitative 0.025 ng/mL (0.000-0.055) Total Protein 7.6 g/dL (6.4-8.2) Albumin 3.7 g/dL (3.4-5.0) Albumin/Globulin Ratio 0.9 (1.0-1.7) Urine Collection Type Void Urine Color Yellow Urine Clarity Clear Urine pH 5.0 (<5.0-8.0) Urine Specific Grimsley 1.010 (1.000-1.030) Urine Protein Negative mg/dL (NEG-TRACE) Urine Glucose (UA) 100 mg/dL (NEG) Urine Ketones (Stick) Negative mg/dL (NEG) Urine Blood Negative (NEG) Urine Nitrite Negative (NEG) Urine Bilirubin Negative (NEG) Urine Urobilinogen Dipstick 0.2 mg/dL (0.2 mg/dL) Urine Leukocyte Esterase Negative (NEG) Urine RBC 0 /HPF (0-2) Urine WBC 0 /HPF (0-4) Urine Squamous Epithelial Cells Occ /LPF Urine Bacteria 0 /HPF (0-FEW) Urine Hyaline Casts Moderate /HPF Urine Mucus Mod /LPF VTE Prophylaxis Ordered VTE Prophylaxis Devices: Yes VTE Pharmacological Prophylaxi: Yes Assessment/Plan Assessment/Plan Syncopal episode Chronic systolic HF with NICM; LVEF 15%. Improved s/p IV Lasix Acute on chronic kidney disease with a mild elevation of his creatinine to 2 Hyperkalemia, will rule out false positive with a repeat BMP Essential hypertension CAD; non-obstructive. 06/2017 LHC 30% to LAD lesion, LCx no occlusion, ramus occluded, RCA with 30-40% proximal lesion. Colon CA with liver metastasis completed about 24 sessions of chemotherapy CKD Hyperlipidemia; LD 67 Hypomagnesemia ; replaced Hx of seizures Hx of substance abuse Hypothyroidism Plan Observation Orthostatics Repeat BMP Reassess in the a.m. We will address his hyperkalemia with diuresis Telemetry DVT prophylaxis patient is on chronic ARLYN Shrestha MD Dec 11, 2019 18:06
[2019-12-11 18:17] VITALS: BP_SYST 104; BP_SYST 110; BP_DIAS 62; BP_DIAS 63
[2019-12-11 18:18] VITALS: BP 100/59
[2019-12-11 19:00] VITALS: BP 98/46
[2019-12-11] MEDS: levETIRAcetam 500 MG TABLET PO SCH (21:00)
[2019-12-11] MEDS: SACUBITRIL/VALSARTAN 24/26MG TABLET. PO SCH (21:23)
[2019-12-11] MEDS: APIXABAN 2.5 MG TABLET. PO SCH (21:23)
[2019-12-11] MEDS ORDERED: MECO10005 PO (22:05)
[2019-12-11] MEDS ORDERED: VIT1TABL43 PO (22:10)
[2019-12-11 23:14] VITALS: BP 100/47
[2019-12-12 03:00] VITALS: BP 102/50
[2019-12-12 07:00] VITALS: BP_SYST 104; BP_SYST 111; BP_SYST 94; BP_DIAS 64; BP_DIAS 69; BP_DIAS 73
--- NOTE | 2019-12-12 07:59 | EKG ---
[facility] [address] [place] [address] Test Date: 2019-12-11 Test Time: 12:28:06 Pat Name: SANTIAGO CROUCH Department: Room: Gender: M Emergency Room Physician: : 1950 Requested By: EFREN BELLA Order Number: [id number] Reading MD: Measurements Intervals Ulysses Rate: 62 P: 54 MI: 198 QRS: 23 QRSD: 96 T: 176 QT: 392 QTc: 400 Interpretive Statements SINUS RHYTHM LOW LIMB LEAD VOLTAGE T ABNORMALITY IN ANTEROLATERAL LEADS INFEROLATERAL LEADS ABNORMAL ECG RI6.02 No previous ECG available for comparison
[2019-12-12] MEDS: ASPIRIN CHEWABLE 81 MG TABLET. PO SCH (08:37)
[2019-12-12] MEDS: levETIRAcetam 500 MG TABLET PO SCH ×2 (08:37→21:49)
[2019-12-12] MEDS: FOLIC ACID 1 MG TABLET. PO SCH (08:37)
[2019-12-12] MEDS: TAMSULOSIN 0.4 MG CAP.ER.24H. PO SCH (08:37)
[2019-12-12] MEDS: SACUBITRIL/VALSARTAN 24/26MG TABLET. PO SCH ×2 (08:37→21:49)
[2019-12-12] MEDS: EZETIMIBE 10 MG TABLET. PO SCH (08:37)
[2019-12-12] MEDS: ATORVASTATIN CALCIUM 20 MG TABLET PO SCH (08:37)
[2019-12-12] MEDS: APIXABAN 2.5 MG TABLET. PO SCH ×2 (08:38→21:49)
[2019-12-12] MEDS: POTASSIUM CHLORIDE 10 MEQ TABLET.ER. PO SCH (08:38)
[2019-12-12] MEDS: CARVEDILOL 3.125 MG TABLET. PO SCH ×2 (08:38→16:57)
[2019-12-12] MEDS ORDERED: FUROSEMIDE 20 MG TABLET PO SCH (09:00)
--- NOTE | 2019-12-12 10:34 | PDOC2 ---
RL SAEZ PUBLIC HEALTH INSPECTOR 12/12/19 1034: CARDIAC CONSULT DATE OF CONSULT Date of Consult DATE: 12/12/19 TIME: 10:31 REASON FOR CONSULT Reason for Consult: near syncope REFERRING PHYSICIAN Referring Physician: Dr. Gallegos SOURCE Source: Chart review, Patient HISTORY OF PRESENT ILLNESS HISTORY OF PRESENT ILLNESS This is a 69 yo male who presented secondary to near syncopal event. Patient repots he was sitting outside his housing complex and last thing he remembers he stood up to go inside and must have passed out. The next thing he remembers in being laid on a stretcher after EMS arrival. He denies any recent dizziness, diaphoresis, CP, SOA, or nausea/vomiting. Reports compliance with meds. No recent fevers or illness. PAST MEDICAL HISTORY Past Medical History Cardiovascular: CAD, HTN, Hyperlipidemia, CHF, NICM Pulmonary: No pertinent hx CENTRAL NERVOUS SYSTEM: Seizure GI: metastatic colon CA Heme/Onc: No pertinent hx Hepatobiliary: No pertinent hx Psych: No pertinent hx Musculoskeletal: Osteoarthritis Rheumatologic: No pertinent hx Infectious disease: No pertinent hx ENT: No pertinent hx Renal/: CKD Endocrine: No pertinent hx Dermatology: No pertinent hx PAST SURGICAL HISTORY Past Surgical History: Other (Other (colectomy)) FAMILY HISTORY Family History: Hypertension SOCIAL HISTORY Social History Smoke: <1 pack per day (>40 yrs) ALCOHOL: h/o heavy (quit) Drugs: h/o use (quit) Lives: with Family CURRENT MEDICATIONS CURRENT MEDICATIONS Current Medications Medications (Trade) Dose Ordered Sig/Karina Route PRN Reason Start Time Stop Time Status Last Admin Dose Admin Sodium Chloride 1,000 ml @ 1,000 mls/hr 1X ONCE IV 12/11/19 12:45 12/11/19 13:44 DC 12/11/19 12:56 Calcium Gluconate 1000 mg/Sodium Chloride 110 ml @ 220 mls/hr 1X ONCE IV 12/11/19 14:00 12/11/19 14:29 DC 12/11/19 14:47 Dextrose (Dextrose 50%-Water Syringe) 25 gm 1X ONCE IV 12/11/19 13:45 12/11/19 13:46 DC 12/11/19 14:47 Insulin Human Regular (HumuLIN R VIAL) 10 unit 1X ONCE IV 12/11/19 13:45 12/11/19 13:46 DC 12/11/19 14:48 Sodium Chloride 1,000 ml @ 125 mls/hr 1X ONCE IV 12/11/19 16:00 12/11/19 23:59 DC 12/11/19 16:32 Apixaban (Eliquis) 2.5 mg BID PO 12/11/19 21:00 12/12/19 08:38 Aspirin (Aspirin Chewable) 81 mg DAILY PO 12/12/19 09:00 12/12/19 08:37 Atorvastatin Calcium (Lipitor) 20 mg DAILY PO 12/12/19 09:00 12/12/19 08:37 Carvedilol (Coreg) 3.125 mg BIDWMEALS PO 12/11/19 17:00 12/12/19 08:38 EZETIMIBE (Zetia) 10 mg DAILY PO 12/12/19 09:00 12/12/19 08:37 Folic Acid (Folic Acid) 1 mg DAILY PO 12/12/19 09:00 12/12/19 08:37 Furosemide (Lasix) 20 mg DAILY PO 12/12/19 09:00 12/12/19 08:37 Levetiracetam (Keppra) 500 mg BID PO 12/11/19 21:00 12/12/19 08:37 Potassium Chloride (Klor-Con) 10 meq DAILYWBKFT PO 12/12/19 08:00 12/12/19 08:38 Sacubitril/ Valsartan (Entresto 24 Mg-26 Mg) 1 tab BID PO 12/11/19 21:00 12/12/19 08:37 Tamsulosin HCl (Flomax) 0.4 mg DAILY PO 12/12/19 09:00 12/12/19 08:37 ALLERGIES ALLERGIES: Coded Allergies: No Known Drug Allergies (Unverified , 03/08/18) ROS Review of System 14 point ROS conducted with pertinent positives noted above in HPI PHYSICAL EXAM PHYSICAL EXAM General: Alert, Oriented X3, Cooperative, No acute distress HEENT: Atraumatic, Mucous membr. moist/pink Lungs: CTA Heart: Regular rate, Other (2/6 systolic function) Abdomen: Soft, No tenderness Extremities: No edema, Normal pulses Skin: No significant lesion Neuro: Normal speech, Sensation intact Psych/Mental Status: Mental status NL, Mood NL MUSCULOSKELETAL: Osteoarthritic changes both hands VITALS/I&O VITALS/I&O: Vital Signs Date Time Temp Pulse Resp B/P (MAP) Pulse Ox O2 Delivery O2 Flow Rate FiO2 12/12/19 08:38 74 102/50 12/12/19 07:35 Room Air 12/12/19 07:00 97.8 20 99 97.8 I & O 12/11/19 12/11/19 12/12/19 15:00 23:00 07:00 Intake Total 1000 ml 500 ml 200 ml Output Total 300 ml Balance 1000 ml 200 ml 200 ml LABS Lab: Laboratory Tests Test 12/11/19 12:40 12/11/19 15:50 12/11/19 16:30 12/11/19 20:33 White Blood Count 3.0 x10^3/uL (4.0-11.0) L Red Blood Count 4.01 x10^6/uL (4.30-5.70) L Hemoglobin 12.5 g/dL (13.0-17.5) L Hematocrit 38.8 % (39.0-53.0) L Mean Corpuscular Volume 97 fL (79-100) Mean Corpuscular Hemoglobin 31 pg (25-35) Mean Corpuscular Hemoglobin Concent 32 g/dL (31-37) Red Cell Distribution Width 18.1 % (11.5-14.5) H Platelet Count 76 x10^3/uL (140-400) L Neutrophils (%) (Auto) 34 % (31-73) Lymphocytes (%) (Auto) 45 % (24-48) Monocytes (%) (Auto) 14 % (0-9) H Eosinophils (%) (Auto) 6 % (0-3) H Basophils (%) (Auto) 1 % (0-3) Neutrophils # (Auto) 1.0 x10^3/uL (1.8-7.7) L Lymphocytes # (Auto) 1.4 x10^3/uL (1.0-4.8) Monocytes # (Auto) 0.4 x10^3/uL (0.0-1.1) Eosinophils # (Auto) 0.2 x10^3/uL (0.0-0.7) Basophils # (Auto) 0.0 x10^3/uL (0.0-0.2) Sodium Level 138 mmol/L (136-145) 141 mmol/L (136-145) Potassium Level 6.1 mmol/L (3.5-5.1) *H 4.0 mmol/L (3.5-5.1) # Chloride Level 107 mmol/L (98-107) 108 mmol/L (98-107) H Carbon Dioxide Level 24 mmol/L (21-32) 25 mmol/L (21-32) Anion Gap 7 (6-14) 8 (6-14) Blood Urea Nitrogen 21 mg/dL (8-26) 23 mg/dL (8-26) Creatinine 2.0 mg/dL (0.7-1.3) H 1.9 mg/dL (0.7-1.3) H Estimated GFR (Cockcroft-Gault) 40.4 42.9 BUN/Creatinine Ratio 11 (6-20) Glucose Level 124 mg/dL (70-99) H 97 mg/dL (70-99) Calcium Level 8.9 mg/dL (8.5-10.1) 8.7 mg/dL (8.5-10.1) Total Bilirubin 0.6 mg/dL (0.2-1.0) Aspartate Amino Transferase (AST) 19 U/L (15-37) Alanine Aminotransferase (ALT) 24 U/L (16-63) Alkaline Phosphatase 96 U/L (46-116) Troponin I Quantitative 0.025 ng/mL (0.000-0.055) Total Protein 7.6 g/dL (6.4-8.2) Albumin 3.7 g/dL (3.4-5.0) Albumin/Globulin Ratio 0.9 (1.0-1.7) L Urine Collection Type Void Urine Color Yellow Urine Clarity Clear Urine pH 5.0 (<5.0-8.0) Urine Specific [place] 1.010 (1.000-1.030) Urine Protein Negative mg/dL (NEG-TRACE) Urine Glucose (UA) 100 mg/dL (NEG) Urine Ketones (Stick) Negative mg/dL (NEG) Urine Blood Negative (NEG) Urine Nitrite Negative (NEG) Urine Bilirubin Negative (NEG) Urine Urobilinogen Dipstick 0.2 mg/dL (0.2 mg/dL) Urine Leukocyte Esterase Negative (NEG) Urine RBC 0 /HPF (0-2) Urine WBC 0 /HPF (0-4) Urine Squamous Epithelial Cells Occ /LPF Urine Bacteria 0 /HPF (0-FEW) Urine Hyaline Casts Moderate /HPF Urine Mucus Mod /LPF Glucose (Fingerstick) 120 mg/dL (70-99) H Test 12/12/19 07:48 Glucose (Fingerstick) 84 mg/dL (70-99) Laboratory Tests 12/11/19 12:40 Laboratory Tests 12/11/19 12:40 12/11/19 16:30 ECHOCARDIOGRAM ECHOCARDIOGRAM <Conclusion> Left ventricle ejection fraction is severely impaired. The Ejection Fraction is 15%. Doppler and Color-flow revealed mild mitral regurgitation. There is no evidence of significant pericardial effusion. DATE: 04/28/18 1237 <Conclusion> Left ventricle ejection fraction is severely impaired. The Ejection Fraction is 10-15%. There is severe global hypokinesis of the left ventricle. Doppler and Color-flow revealed mild mitral regurgitation. There is a trace circumferential pericardial effusion. DATE: 11/16/19 1423 ASSESSMENT/PLAN ASSESSMENT/PLAN 1. Syncopal episode. No acute event noted on tele. ? hypotension, dehydration contributing. S/p IVFs 2. Chronic systolic HF with NICM; LVEF 10-15%. 4. Accelerated hypertension, POA. Now controlled 5. CAD; non-obstructive. 06/2017 LHC 30% to LAD lesion, LCx no occlusion, ramus occluded, RCA with 30-40% proximal lesion. 6. Colon CA with liver metastasis. Has f/u scans next month to determine ther apy responsiveness, further treatment plan. 7. FAUSTINO on CKD, hyperkalemia 8. Hyperlipidemia; LD 67 9. Hx of substance abuse 10. Hypothyroidism 11. Thrombocytopena Recommendations Orthostatics Resume ASA, statin therapy Entresto and Coreg as BP allows. Decrease Lasix to QOD Monitor PLTs on ASA Discussed consideration of AICD in primary prevention of SCD. Patient does not think he is interested at this time given comorbidities. Will need to determine prognosis to help guide therapy Supportive care DAVID MEDELLIN MD 12/12/193: CARDIAC CONSULT ASSESSMENT/PLAN ASSESSMENT/PLAN The patient was seen and interviewed as well as examined at the bedside. The chart was reviewed. The case was discussed. Agree with the plan of care. RL SAEZ APRN Dec 12, 2019 10:34 DAVID MEDELLIN MD Dec 12, 2019 18:13
[2019-12-12 10:54] VITALS: BP 102/61
--- NOTE | 2019-12-12 12:20 | PDOC ---
[employer] PROGRESS NOTE Date of Service DOS: DATE: 12/12/19 TIME: 12:16 Chief Complaint Chief Complaint Patient presents with hyperkalemia and near syncope History of Present Illness History of Present Illness 12/12/2019 Patient was alert and oriented on exam Patient was in NAD Patient endorsed having a past medical history of a 'block' in his heart Vitals/I&O Vitals/I&O: Vital Signs Date Time Temp Pulse Resp B/P (MAP) Pulse Ox O2 Delivery O2 Flow Rate FiO2 12/12/19 10:54 98.1 78 19 102/61 (75) 99 Room Air 98.1 I & O 12/11/19 12/11/19 12/12/19 15:00 23:00 07:00 Intake Total 1000 ml 500 ml 200 ml Output Total 300 ml Balance 1000 ml 200 ml 200 ml Physical Exam Lungs: Clear Labs Labs: Laboratory Tests Test 12/11/19 12:40 12/11/19 15:50 12/11/19 16:30 12/11/19 20:33 White Blood Count 3.0 x10^3/uL (4.0-11.0) Red Blood Count 4.01 x10^6/uL (4.30-5.70) Hemoglobin 12.5 g/dL (13.0-17.5) Hematocrit 38.8 % (39.0-53.0) Mean Corpuscular Volume 97 fL (79-100) Mean Corpuscular Hemoglobin 31 pg (25-35) Mean Corpuscular Hemoglobin Concent 32 g/dL (31-37) Red Cell Distribution Width 18.1 % (11.5-14.5) Platelet Count 76 x10^3/uL (140-400) Neutrophils (%) (Auto) 34 % (31-73) Lymphocytes (%) (Auto) 45 % (24-48) Monocytes (%) (Auto) 14 % (0-9) Eosinophils (%) (Auto) 6 % (0-3) Basophils (%) (Auto) 1 % (0-3) Neutrophils # (Auto) 1.0 x10^3/uL (1.8-7.7) Lymphocytes # (Auto) 1.4 x10^3/uL (1.0-4.8) Monocytes # (Auto) 0.4 x10^3/uL (0.0-1.1) Eosinophils # (Auto) 0.2 x10^3/uL (0.0-0.7) Basophils # (Auto) 0.0 x10^3/uL (0.0-0.2) Sodium Level 138 mmol/L (136-145) 141 mmol/L (136-145) Potassium Level 6.1 mmol/L (3.5-5.1) 4.0 mmol/L (3.5-5.1) Chloride Level 107 mmol/L (98-107) 108 mmol/L (98-107) Carbon Dioxide Level 24 mmol/L (21-32) 25 mmol/L (21-32) Anion Gap 7 (6-14) 8 (6-14) Blood Urea Nitrogen 21 mg/dL (8-26) 23 mg/dL (8-26) Creatinine 2.0 mg/dL (0.7-1.3) 1.9 mg/dL (0.7-1.3) Estimated GFR (Cockcroft-Gault) 40.4 42.9 BUN/Creatinine Ratio 11 (6-20) Glucose Level 124 mg/dL (70-99) 97 mg/dL (70-99) Calcium Level 8.9 mg/dL (8.5-10.1) 8.7 mg/dL (8.5-10.1) Total Bilirubin 0.6 mg/dL (0.2-1.0) Aspartate Amino Transf (AST/SGOT) 19 U/L (15-37) Alanine Aminotransferase (ALT/SGPT) 24 U/L (16-63) Alkaline Phosphatase 96 U/L (46-116) Troponin I Quantitative 0.025 ng/mL (0.000-0.055) Total Protein 7.6 g/dL (6.4-8.2) Albumin 3.7 g/dL (3.4-5.0) Albumin/Globulin Ratio 0.9 (1.0-1.7) Urine Collection Type Void Urine Color Yellow Urine Clarity Clear Urine pH 5.0 (<5.0-8.0) Urine Specific [place] 1.010 (1.000-1.030) Urine Protein Negative mg/dL (NEG-TRACE) Urine Glucose (UA) 100 mg/dL (NEG) Urine Ketones (Stick) Negative mg/dL (NEG) Urine Blood Negative (NEG) Urine Nitrite Negative (NEG) Urine Bilirubin Negative (NEG) Urine Urobilinogen Dipstick 0.2 mg/dL (0.2 mg/dL) Urine Leukocyte Esterase Negative (NEG) Urine RBC 0 /HPF (0-2) Urine WBC 0 /HPF (0-4) Urine Squamous Epithelial Cells Occ /LPF Urine Bacteria 0 /HPF (0-FEW) Urine Hyaline Casts Moderate /HPF Urine Mucus Mod /LPF Glucose (Fingerstick) 120 mg/dL (70-99) Test 12/12/19 07:48 12/12/19 11:52 Glucose (Fingerstick) 84 mg/dL (70-99) 84 mg/dL (70-99) Assessment and Plan Assessmemt and Plan Assessment (1) Hyperkalemia Status: Acute (2) Near syncope Status: Acute Plan Appreciate cardiology consult Trend labs to monitor potassium Home meds Cardiac monitoring DVT prophylaxis Full code Comment Review of Relevant I have reviewed the following items gala (where applicable) has been applied. Medications: Current Medications Medications (Trade) Dose Ordered Sig/Karina Route PRN Reason Start Time Stop Time Status Last Admin Dose Admin Sodium Chloride 1,000 ml @ 1,000 mls/hr 1X ONCE IV 12/11/19 12:45 12/11/19 13:44 DC 12/11/19 12:56 Calcium Gluconate 1000 mg/Sodium Chloride 110 ml @ 220 mls/hr 1X ONCE IV 12/11/19 14:00 12/11/19 14:29 DC 12/11/19 14:47 Dextrose (Dextrose 50%-Water Syringe) 25 gm 1X ONCE IV 12/11/19 13:45 12/11/19 13:46 DC 12/11/19 14:47 Insulin Human Regular (HumuLIN R VIAL) 10 unit 1X ONCE IV 12/11/19 13:45 12/11/19 13:46 DC 12/11/19 14:48 Sodium Chloride 1,000 ml @ 125 mls/hr 1X ONCE IV 12/11/19 16:00 12/11/19 23:59 DC 12/11/19 16:32 Apixaban (Eliquis) 2.5 mg BID PO 12/11/19 21:00 12/12/19 08:38 Aspirin (Aspirin Chewable) 81 mg DAILY PO 12/12/19 09:00 12/12/19 08:37 Atorvastatin Calcium (Lipitor) 20 mg DAILY PO 12/12/19 09:00 12/12/19 08:37 Carvedilol (Coreg) 3.125 mg BIDWMEALS PO 12/11/19 17:00 12/12/19 08:38 EZETIMIBE (Zetia) 10 mg DAILY PO 12/12/19 09:00 12/12/19 08:37 Folic Acid (Folic Acid) 1 mg DAILY PO 12/12/19 09:00 12/12/19 08:37 Furosemide (Lasix) 20 mg DAILY PO 12/12/19 09:00 12/12/19 08:37 Levetiracetam (Keppra) 500 mg BID PO 12/11/19 21:00 12/12/19 08:37 Potassium Chloride (Klor-Con) 10 meq DAILYWBKFT PO 12/12/19 08:00 12/12/19 08:38 Sacubitril/ Valsartan (Entresto 24 Mg-26 Mg) 1 tab BID PO 12/11/19 21:00 12/12/19 08:37 Tamsulosin HCl (Flomax) 0.4 mg DAILY PO 12/12/19 09:00 12/12/19 08:37 ELISSA ANTON K III DO Dec 12, 2019 12:20
--- NOTE | 2019-12-12 14:11 | NUR ---
SS following for discharge planning. SS reviewed pt chart and discussed with pt RN. Pt is from home and is currently on room air. Cardiology consulted. SS will continue to follow for discharge planning.
[2019-12-12 15:00] VITALS: BP 92/56
[2019-12-12 19:25] VITALS: BP_SYST 101; BP_SYST 137; BP_DIAS 64; BP_DIAS 71
[2019-12-12 23:05] VITALS: BP 104/61
[2019-12-13 03:35] VITALS: BP 93/62
[2019-12-13 07:00] VITALS: BP 107/70
[2019-12-13] MEDS: POTASSIUM CHLORIDE 10 MEQ TABLET.ER. PO SCH (08:00)
[2019-12-13] MEDS: APIXABAN 2.5 MG TABLET. PO SCH (08:35)
[2019-12-13] MEDS: levETIRAcetam 500 MG TABLET PO SCH (08:35)
[2019-12-13] MEDS: CARVEDILOL 3.125 MG TABLET. PO SCH (08:35)
[2019-12-13] MEDS: ATORVASTATIN CALCIUM 20 MG TABLET PO SCH (08:35)
[2019-12-13] MEDS: FOLIC ACID 1 MG TABLET. PO SCH (08:36)
[2019-12-13] MEDS: TAMSULOSIN 0.4 MG CAP.ER.24H. PO SCH (08:36)
[2019-12-13] MEDS: ASPIRIN CHEWABLE 81 MG TABLET. PO SCH (08:36)
[2019-12-13] MEDS: EZETIMIBE 10 MG TABLET. PO SCH (08:36)
[2019-12-13] MEDS: SACUBITRIL/VALSARTAN 24/26MG TABLET. PO SCH (08:36)
[2019-12-13 11:00] VITALS: BP 86/54
--- NOTE | 2019-12-13 12:11 | PDOC ---
[employer] PROGRESS NOTE Date of Service DOS: DATE: 12/13/19 TIME: 12:05 Chief Complaint Chief Complaint Patient presents with hyperkalemia and near syncope History of Present Illness History of Present Illness 12/13/19 Patient was alert and oriented on exam Patient was in NAD Patient was being examined by cardiology Spoke with RN 12/12/2019 Patient was alert and oriented on exam Patient was in NAD Patient endorsed having a past medical history of a 'block' in his heart Vitals/I&O Vitals/I&O: Vital Signs Date Time Temp Pulse Resp B/P (MAP) Pulse Ox O2 Delivery O2 Flow Rate FiO2 12/13/19 08:36 75 12/13/19 07:00 97.9 20 107/70 (82) 100 Room Air 97.9 12/12/19 19:25 I & O 12/12/19 12/12/19 12/13/19 14:59 22:59 06:59 Intake Total 500 ml 250 ml 200 ml Output Total 400 ml Balance 500 ml 250 ml -200 ml Physical Exam General: Alert Lungs: Clear Abdomen: Normal bowel sounds Extremities: No clubbing Skin: No rashes, No breakdown, No significant lesion Labs Labs: Laboratory Tests Test 12/12/19 16:50 12/12/19 20:58 12/13/19 07:46 12/13/19 11:48 Glucose (Fingerstick) 98 mg/dL (70-99) 98 mg/dL (70-99) 82 mg/dL (70-99) 131 mg/dL (70-99) Review of Systems Review of Systems: Patient denies nausea, patient denies weakness Assessment and Plan Assessmemt and Plan Problems Medical Problems: (1) Hyperkalemia Status: Acute (2) Near syncope Status: Acute Plan Appreciate cardiology input Discharge when okay with cardiology Cardiac monitoring Trend labs Home meds DVT prophylaxis Full code Comment Review of Relevant I have reviewed the following items gala (where applicable) has been applied. ELISSA ANTON III DO Dec 13, 2019 12:11
--- NOTE | 2019-12-13 12:57 | DS ---
DATE OF DISCHARGE: 12/13/2019 ADMISSION DIAGNOSIS: Near syncope. DISCHARGE DIAGNOSES: 1. Resolving near syncope. 2. Hyperkalemia, resolving. 3. History of coronary artery disease. 4. Hypertension. 5. Hyperlipidemia. 6. Congestive heart failure. 7. History of seizures. 8. Metastatic colon cancer. 9. Osteoarthritis. 10. Chronic kidney disease. CONSULTS: Cardiology. PROCEDURES: None. HOSPITAL COURSE: The patient is a pleasant middle-aged male presented with a near syncopal episode. We admitted the patient, did serial enzymes, serial EKGs. We did cardiac monitoring, consulted Cardiology. We will adjust his meds. Today, I saw and examined him. He is at his baseline. If okay with Cardiology, we are going to discharge with close outpatient followup. DISPOSITION: Home. ACTIVITY: As tolerated. DIET: Low sodium. MEDICATIONS: Please see the MRAD. TOTAL TIME: 32 minutes. ELISSA ANTON DO DR: VERO/prince JOB#: [id number] / [id number]
--- NOTE | 2019-12-13 14:20 | PDOC ---
NOE MELO ENGINEERING DESIGN MANAGER 12/13/19 1420: CARDIO Progress Notes Date and Time Date of Service 12/13/2019 Time of Evaluation 0945 Subjective Subjective: No Chest Pain, No shortness of breath, No Palpitations Vitals Vitals Vital Signs Date Time Temp Pulse Resp B/P (MAP) Pulse Ox O2 Delivery O2 Flow Rate FiO2 12/13/19 11:00 98.1 69 20 86/54 (65) 98 Room Air 98.1 12/12/19 19:25 Weight Weight [ ] Input and Output Intake and Output Intake and Output 12/13/19 07:00 Intake Total 950 ml Output Total 400 ml Balance 550 ml Intake Oral 950 ml Output Urine Total 400 ml Laboratory Labs Laboratory Tests Test 12/12/19 16:50 12/12/19 20:58 12/13/19 07:46 12/13/19 11:48 Glucose (Fingerstick) 98 mg/dL (70-99) 98 mg/dL (70-99) 82 mg/dL (70-99) 131 mg/dL (70-99) Physical Exam HEENT: Neck Supple W Full Motion Chest: Symmetric LUNGS: Clear to Auscultation Heart: RRR (SR) Abdomen: Soft N/T Extremities: No Edema, No Calf Tenderness Neurology: alert, oriented, follow commands Assessment Assessment 1. Syncope: possibly from low volume rather than arrhythmia 2. Chronic systolic HF with NICM; LVEF 10-15%. 4. Accelerated hypertension, POA. Now controlled 5. CAD; non-obstructive. 06/2017 LHC 30% to LAD lesion, LCx no occlusion, ramus occluded, RCA with 30-40% proximal lesion.Clinically stable 6. Colon CA with liver metastasis. [facility] 7. FAUSTINO on CKD, K normalized. Cr stable 8. Hyperlipidemia; LDL 67 9. Hx of substance abuse 10. Hypothyroidism 11. Thrombocytopena: PLT 76, per PCP 12. Brief NSVT Recommendations 1. Orthostatics readings 2. Secondary prevention measures. ASA, statin therapy 3. Coreg as BP allows. Stop entresto for now and reeval as an outpt 4. Lasix to QOD, discussed hydration adequacy 5. Consideration of AICD in primary prevention of SCD, will discuss as an outpt pending CA prognosis. Reported to restart chemo treatment per his hemonc 6. Follow up in office at 12/29 1015 Justicifation of Admission Dx: Justifications for Admission: Justification of Admission Dx: Yes CHF: Sev. Electrolyte Abnormal Respiratory Failure: Severe Resp Distress Chronic Renal Failure: Electrolyte Abnormality Acute COPD Exacerbation: Acute COPD Exacerbation DAVID MEDELLIN MD 12/13/19 1534: CARDIO Progress Notes Plan Plan Pt. seen and examined. Agree with above SPINNER TENDER note. I spoke to his oncologist at [facility] regarding prognosis, estimated apparently at 2 years possibly Discussed possibility of hospice/palliative care given severe LV dysfunction and stage 4 cancer, patient not interested at this time. Shan painting, discussed meds with RN, plan for office f/u with patient and family to determine goals of care. Thanks NOE MELO APRN Dec 13, 2019 14:20 DAVID MEDELLIN MD Dec 13, 2019 15:34
[2019-12-13 15:40] VITALS: BP 97/63
[2019-12-13 15:45] VITALS: BP 110/74
[2019-12-13 15:50] VITALS: BP 114/69
--- NOTE | 2019-12-13 17:05 | NUR ---
Discharge: Discharge education verbal and written. Reviewed orders, medications, follow-up, CHF, labs, syncope, hypotension, ect. Patient verbalized understanding. to have labs drawn next week. IV removed without complications, catheter tip in tact. All belongings with patient. Patient ambulated off of unit with RN
[2019-12-14] MEDS ORDERED: FUROSEMIDE 20 MG TABLET PO SCH (09:00)
== END 2019-12-13 16:00 | disposition home or self-care (01) | DRG 312 ==
LOC: ER 12:13 → 2 SOUTH 14:43 → OBSVTOIN 14:43 → 2 SOUTH 16:39
PROVIDERS: ADMIT Internal Medicine; ATTEND Internal Medicine
DX: R55 Syncope and collapse (principal); N17.9 Acute kidney failure, unspecified; I50.22 Chronic systolic (congestive) heart failure; C18.9 Malignant neoplasm of colon, unspecified; C78.7 Secondary malignant neoplasm of liver and intrahepatic bile duct; I13.0 Hypertensive heart and chronic kidney disease with heart failure and stage 1 through stage 4 chronic kidney disease, or unspecified chronic kidney disease; I42.8 Other cardiomyopathies; I47.2 Ventricular tachycardia; E86.0 Dehydration; I95.9 Hypotension, unspecified; E03.9 Hypothyroidism, unspecified; E78.5 Hyperlipidemia, unspecified; E83.42 Hypomagnesemia; E87.5 Hyperkalemia; F17.210 Nicotine dependence, cigarettes, uncomplicated; I25.10 Atherosclerotic heart disease of native coronary artery without angina pectoris; M19.90 Unspecified osteoarthritis, unspecified site; N18.9 Chronic kidney disease, unspecified; D69.6 Thrombocytopenia, unspecified; Z82.49 Family history of ischemic heart disease and other diseases of the circulatory system; Z85.038 Personal history of other malignant neoplasm of large intestine; Z85.05 Personal history of malignant neoplasm of liver
CPT/HCPCS: 36415; 71045; 80048; 80053; 81001; 82962; 84484; 85025; 93005; 96361; 96365; 96375; 99285; J0610; J1815; J7030; G0378